=== PATIENT | male | born 1975 | race African-American/Black ===

== ENCOUNTER 2018-03-12 13:00 | Outpatient (RCR) | payer OTHER, SELFPAY ==
--- NOTE | 2018-02-10 17:09 | HP.PTEVAL_ITS ---
Patient's Visit Information BRIANNE ESTRADA is a 42 year old M referred to Physical Therapy by Tavia Martin MD with a diagnosis of LOW BACK PAIN,SCIATICA. Date of Evaluation: 02/10/18 Physical Therapist: Jose Frye PT, - Visit Plan Frequency: 2x /Week Duration: 4 Weeks Plan: intiate Mckenzies ,progression of forces as needed,progress to DLS/ POSTURE program ,and modlities for pain releive - Subjective Subjective: This 42 y/o male presenst physical therapy with low iman pain and radicular symptoms in right leg. Patient has had lumbar pain 2008 with symptoms wher intermittant . Patient symptosm more constant. Location symmtrical right greater than left anterior leg. Patient seen pain management plan to review MRI. Recommmended pain MEDS.Patient c/o weakness right leg ,trip on feet right side. C/O parathesia/tingling right foot. Bowel/bladder good.Coughing /sneezing -.Symptoms worse with sitting,driving,bending,lifting,standing.Patient has h/o epidural injections in past.Symptoms with rest. Pain affects sleeping. Pain affects ADL'S and housework taskS QOL. VOCATION: [employer]. SOCIAL: - Pain Bilateral Back Pain Intensity (Out of 10): 6 Pain Intensity Range: 10 Right Lower Extremity Pain Intensity (Out of 10): 6 Pain Intensity Range: 10 - Objective POSTURE: mild foward posture. GAIT: decrease stance time right leg with reciprocal pattern. PALAPTION: tender paraspinals /L-S. NEURO: c/o parathesia/ tingling right leg ,reflexes L3-4,L5-S1,2/3 ,MYTOME weakns L2-3. LUMBAR ROM: flexion min loss,extension min loss,side glides min ;loss. FLEXABLITY: hams mod tight. SYMMTRIES: align - Special Tests Lumbar Standing: Flexion - Mechanical Response: No effect Lumbar Standing: Flexion - Symptoms During Testing: Increases Lumbar Standing: Flexion - Symptoms After Testing: Worse Lumbar Standing: Extension - Mechanical Response: No effect Lumbar Standing: Extension - Symptoms During Testing: Decreases Lumbar Standing: Extension - Symptoms After Testing: Better Comments:: anterior thigh Lumbar Lying: Flexion - Mechanical Response: No effect Lumbar Lying: Flexion - Symptoms During Testing: Increases Lumbar Lying: Flexion - Symptoms After Testing: Worse Lumbar Lying: Extension - Mechanical Response: No effect Lumbar Lying: Extension - Symptoms During Testing: Centralizing Lumbar Lying: Extension - Symptoms After Testing: Better Comments:: leg - Goals Goal 1:: Independant with HEP Goal Time Frame: 4-6 Weeks Goal 2:: Independant with posture/body mechanics Goal Time Frame: 4-6 Weeks Goal 3:: Patient to improve lumbar ROM for function of recovery. Goal Time Frame: 4-6 Weeks Goal 4:: Patient to decrease lumbar and right leg pain by 50% o greater to improve function. Goal Time Frame: 4-6 Weeks Goal 5:: Patient to be d/c prophalxis Goal Time Frame: 4-6 Weeks - Rehabilitation Potential Physical Therapy Diagnosis: This patient appears to display with derrangement below knee with weaknes leg ,impairs gait and function ,responds better with extension thus benifit from skilled PT Rehabilitation Potential: Good - Anticipated Interventions Patient/Client Instruction: Educate patient on: Condition, Plan of Care For the Purpose of:: To decrease pain, To increase ROM, To improve muscle performance and motor function, To increase tolerance to activity/condition/ position, To improve ability of physical actions for home/community/work/leisure , To improve health of tissue, To reduce risk of recurrence, To improve ability to perform tasks related to life management Therapeutic Exercise to Include: Strength training, Postural training, Dynamic Lumbar Stabilization, [place] Exercises For the Purpose of:: To decrease pain, To increase ROM, To improve muscle performance and motor function, To increase tolerance to activity/condition/ position, To improve performance and independence with ADL's, To improve ability of physical actions for home/community/work/leisure, To improve health of tissue, To decrease soft tissue restriction, To increase flexibility/ROM, To improve ability to perform tasks related to life management TENS: Yes Cryotherapy (ice pack, ice massage): Yes Thermo therapy (hot pack): Yes Ultrasound (thermal/non thermal): Yes For the Purpose of:: To decrease pain, To decrease swelling/inflammation, To improve nutrient delivery to tissue, To increase oxygenation perfusion, To improve health of tissue, To decrease soft tissue restriction Thank you for the opportunity to evaluate your patient. For Medicare and Medicare HMO plans, please review the plan of care and approve it. It will need to be FAXED BACK to us at [phone] for Medicare purposes. Please let me know if there are questions or concerns regarding this plan of care. Physician Signature: Date:
--- NOTE | 2018-06-21 18:57 | HP.PTDCSUM ---
HP - PT D/C Summary It has been my pleasure to treat BRIANNE ESTRADA under orders from Tavia Martin MD, for the diagnosis of LOW BACK PAIN,SCIATICA for a total of 7 visit(s). Discharge Date: 03/12/18 Please see the following information for a summary of their discharge status. 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 - Pain Bilateral Back Pain Intensity (Out of 10): 0 Right Lower Extremity Pain Intensity (Out of 10): 0 - Overall Improvement % Improvement: 60 - Objective Objective/Function: POSTURE: WNL. GAIT: normal archana. NEURO: intact. PALPATION: unremarkable. MMT: LE. -SLR. LUMBAR ROM: flexion /extension WNL - Goals Goal 1:: Independant with HEP Goal Progress: Goal Met Goal 2:: Independant with posture/body mechanics Goal Progress: Goal Met Goal 3:: Patient to improve lumbar ROM for function of recovery. Goal Progress: Goal Met Goal 4:: Patient to decrease lumbar and right leg pain by 50% o greater to improve function. Goal Progress: Goal Met Goal 5:: Patient to be d/c prophalxis Goal Progress: Goal Met - Plan Plan: D/C - D/C Information Discharge Comments: RTD If there are questions or concerns regarding this patient's physical therapy, please feel free to call me at [phone]. Thank you for the referral of this patient. Sincerely, Jose Frye, PT,
== END 2018-03-12 19:00 | disposition home or self-care (01) ==
LOC: PT 13:00
PROVIDERS: Family Provider Family Medicine; PCP Internal Medicine; Visit Provider Anesthesiology
DX: M54.41 Lumbago with sciatica, right side (principal)
CPT/HCPCS: 97014; 97110; 97162; 97530; G0283

== ENCOUNTER → 2018-03-12 13:34 | Outpatient (CLI) | payer OTHER, SELFPAY | LOC: RAD 13:36 | PROVIDERS: Family Provider Internal Medicine; PCP Internal Medicine; Visit Provider Anesthesiology Pain Medicine | DX: M54.9 Dorsalgia, unspecified (principal); M79.673 Pain in unspecified foot | CPT/HCPCS: 72100; 73630; 73660 ==

== ENCOUNTER → 2019-03-31 10:21 | Outpatient (CLI) | payer OTHER, SELFPAY ==
[2019-03-31 09:58] VITALS: BMI 26.9
[2019-03-31 12:55] LABS: Absolute Lymphocyte Count 0.79 X10^3/uL (0.83-4.51); Absolute Neutrophil Count 4.7 X10^3/uL (2.0-7.7); Basophil# 0.04 X10^3/uL; Basophil% 0.6 % (0-1); Eosinophil# 0.22 X10^3/uL; Eosinophils% 3.5 % (0-5); Hematocrit 41.6 % (40-54); Hemoglobin 14.1 g/dL (13.0-16.5); Lymphocyte # 0.79 X10^3/ul (4.0); Lymphocyte % 12.6 % (19-41); Mean Corp Hgb Conc 33.9 g/dL (32-36); Mean Corpuscular Hgb 35.9 pg (27.0-32.0); Mean Corpuscular Volume 105.9 fL (80-94); Mean Platelet Vol. 9.2 fl (6.2-12.0); Monocyte# 0.43 X10^3/uL; Monocyte% 6.9 % (0-10); NRBC Flagged by Analyzer 0 % (0-5); Neutrophil # 4.74 X10^3/uL (2.7-7.7); Neutrophil % 75.6 % (47-70); Platelet Count 205 K/mm3 (150-450); RBC Distribution Width CV 11.3 % (11.6-14.6); RBC Distribution Width SD 44.1 fl (35.1-43.9); Red Blood Count 3.93 M/mm3 (4.6-6.2); White Blood Count 6.3 K/mm3 (4.4-11.0)
[2019-03-31 13:03] LABS: ALB/GLOB Ratio 0.9 RATIO (0.9-2.4); AST(SGOT) 30 U/L (15-37); Alanine Aminotransfer ALT/SGPT 31 U/L (16-61); Albumin, Serum 3.2 g/dL (3.2-5.0); Alkaline Phosphatase 42 U/L (45-117); Anion Gap 2 (5-15); BUN 18 mg/dL (7-18); BUN/Creat Ratio 15.3 RATIO (10-20); Calcium,Total 8.3 mg/dL (8.5-10.1); Chloride 112 mmol/L (98-107); Cholesterol 214 mg/dL (200); Creatinine, Serum 1.18 mg/dL (0.70-1.30); EST Glomerular Filtration Rate 71 mL/min (>60); Est Glom Filt Rate - Afr Amer 86 mL/min (>60); Globulin 3.4 g/dL (2.2-4.2); Glucose 84 mg/dL (74-106); High Density Lipoprotein 55 mg/dL; Potassium 3.8 mmol/L (3.5-5.1); Protein, Total 6.6 g/dL (6.4-8.2); Sodium Level 142 mmol/L (136-145); Triglycerides 111 mg/dL; Very Low Density Lipoprotein 22 mg/dL (5-40)
[2019-03-31 15:06] LABS: Thyroid Stim Hormone (TSH) 2.96 uIU/mL (0.358-3.74); Uric Acid 7.2 mg/dL (3.5-7.2)
== END ==
PROVIDERS: Family Provider Internal Medicine; PCP Internal Medicine; Visit Provider Nurse Practitioner Family
DX: I10 Essential (primary) hypertension (principal); M10.9 Gout, unspecified
CPT/HCPCS: 36415; 80053; 80061; 84443; 84550; 85025

== ENCOUNTER → 2020-05-21 10:35 | Outpatient (CLI) | payer OTHER, SELFPAY ==
[2019-09-22 10:35] VITALS: BMI 26.9
== END ==
PROVIDERS: PCP Internal Medicine; Referring Provider Internal Medicine; Visit Provider Internal Medicine
DX: J06.9 Acute upper respiratory infection, unspecified (principal); Z20.828 Contact with and (suspected) exposure to other viral communicable diseases
CPT/HCPCS: 87632; 87635; C9803; U0003

== ENCOUNTER → 2020-10-19 13:27 | Outpatient (CLI) | payer OTHER, SELFPAY ==
[2020-10-19 12:59] VITALS: BMI 25.3
[2020-10-19 15:15] LABS: Absolute Lymphocyte Count 1.71 X10^3/uL (0.83-4.51); Absolute Neutrophil Count 6.4 X10^3/uL (2.0-7.7); Basophil# 0.05 X10^3/uL; Basophil% 0.5 % (0-1); Eosinophil# 0.25 X10^3/uL; Eosinophils% 2.7 % (0-5); Hematocrit 48.3 % (40-54); Hemoglobin 16.6 g/dL (13.0-16.5); Lymphocyte # 1.71 X10^3/ul (4.0); Lymphocyte % 18.5 % (19-41); Mean Corp Hgb Conc 34.4 g/dL (32-36); Mean Corpuscular Hgb 35.5 pg (27.0-32.0); Mean Corpuscular Volume 103.4 fL (80-94); Mean Platelet Vol. 9.3 fl (6.2-12.0); Monocyte# 0.78 X10^3/uL; Monocyte% 8.5 % (0-10); NRBC Flagged by Analyzer 0 % (0-5); Neutrophil # 6.35 X10^3/uL (2.7-7.7); Neutrophil % 68.8 % (47-70); Platelet Count 261 K/mm3 (150-450); RBC Distribution Width CV 11.2 % (11.6-14.6); Red Blood Count 4.67 M/mm3 (4.6-6.2); White Blood Count 9.2 K/mm3 (4.4-11.0)
[2020-10-19 16:20] LABS: ALB/GLOB Ratio 1.1 RATIO (0.9-2.4); AST(SGOT) 64 U/L (15-37); Alanine Aminotransfer ALT/SGPT 60 U/L (16-61); Alkaline Phosphatase 81 U/L (45-117); Anion Gap 4 (5-15); BUN 17 mg/dL (7-18); BUN/Creat Ratio 13.6 RATIO (10-20); Chloride 106 mmol/L (98-107); Cholesterol 272 mg/dL (200); Creatinine, Serum 1.25 mg/dL (0.70-1.30); EST Glomerular Filtration Rate 66 mL/min (>60); Est Glom Filt Rate - Afr Amer 80 mL/min (>60); Globulin 3.8 g/dL (2.2-4.2); Glucose 85 mg/dL (74-106); High Density Lipoprotein 51 mg/dL; Potassium 3.9 mmol/L (3.5-5.1); Protein, Total 7.8 g/dL (6.4-8.2); Sodium Level 139 mmol/L (136-145); Thyroid Stim Hormone (TSH) 1.12 uIU/mL (0.358-3.74); Triglycerides 320 mg/dL; Very Low Density Lipoprotein 64 mg/dL (5-40)
== END ==
PROVIDERS: PCP Internal Medicine; Referring Provider Nurse Practitioner Family; Visit Provider Nurse Practitioner Family
DX: I10 Essential (primary) hypertension (principal)
CPT/HCPCS: 36415; 80053; 80061; 84443; 85025

== ENCOUNTER → 2020-11-01 13:08 | Outpatient (CLI) | payer OTHER, SELFPAY ==
[2020-10-19 12:59] VITALS: BMI 25.3
--- NOTE | 2020-11-01 13:15 | RAD_ITS ---
STUDY: X-RAY - LUMBAR SPINE REASON FOR EXAM: Male, 45 years old. Chronic low back pain. TECHNIQUE: 3 view(s) of the lumbar spine were obtained. COMPARISON: 03/12/2018 FINDINGS: Normal lumbar lordosis. There is no substantial scoliosis. There is a normal alignment of the vertebrae. Normal vertebral bodies and endplates. Stable diffuse facet sclerosis. Intervertebral disc space narrowing most marked at L3-4 and L4-5 relatively unchanged from prior study. Stable aortic calcification. Phleboliths unchanged. RAD/Lumbar Spine 2 or 3 Views IMPRESSION: Stable lumbar spondylosis most marked at L3-4 and L4-5. No acute finding. Electronically Signed: Suleiman Chauhan MD at 14:37 EDT , Service support ,
== END ==
PROVIDERS: PCP Internal Medicine; Visit Provider Nurse Practitioner Family
DX: M54.5 Low back pain (principal); G89.29 Other chronic pain
CPT/HCPCS: 72100

== ENCOUNTER 2020-11-20 09:00 | Outpatient (RCR) | payer OTHER, SELFPAY ==
[2020-10-19 12:59] VITALS: BMI 25.3
--- NOTE | 2020-11-01 13:11 | HP.PTEVAL_ITS ---
Patient's Visit Information BRIANNE ESTRADA is a 45 year old M referred to Physical Therapy by MARIANO Castro with a diagnosis of LOW BACK PAIN. Date of Evaluation: 11/01/20 Physical Therapist: Jose Frye, PT, Cert MDT, OCS - Visit Plan Frequency: 2x /Week Duration: 4 Weeks Plan: PT INTERVENTIONS LIZ EX'S,DLS ,LE FLEXABLITY,MANUAL THERAPY AND MODALITIES - Subjective This 45 y/o male presents to physical therapy with LBP. Patient LBP 2007 picking up weight at soccer and felt pain. Patient seen pain management epidural injection which helped for about 3 years.Patient has tried PT . MRI buldling disc/bulding disc . Pain most recently noticed increase back pain and leg pain. Patient plans to get x-rays and pain MEDS. Location symmtrical lumbar and right leg pain with weakness. C/O tingling right leg. Coughing/sneezing -.[place] el/bladder -.No abdnormal night pain. Aggraveting bending,lifting,sitting standing. Alleviating walking. Patient symptoms affects QOL and function;. VOCATION: [employer]. SOCIAL: - Pain Bilateral Back Pain Intensity (Out of 10): 5 Pain Intensity Range: 10 - Objective POSTURE: mild foward posture. GAIT: reciprocal pattern. PALAPTION: unremarkable. SYMMTRIES: align. FLEXABLITY: hams mod. MMT: quads/hams 4- /5,hip flexion 4-/5,ankle 4/5 left ,right 5/5. LUMBAR ROM: lumbar flexion min loss,extension mod loss ,side glides min loss - Special Tests L/S Slump test left side: Negative L/S Slump test right side: Positive L/S Left Straight Leg Raise: Negative L/S Right Straight Leg Raise: Positive Lumbar Standing: Flexion - Mechanical Response: No effect Lumbar Standing: Flexion - Symptoms During Testing: Increases Lumbar Standing: Flexion - Symptoms After Testing: No worse Lumbar Standing: Extension - Mechanical Response: No effect Lumbar Standing: Extension - Symptoms During Testing: Increases Lumbar Standing: Extension - Symptoms After Testing: No worse Comments:: LPB Lumbar Standing: Right Side Glides - Mechanical Response: No effect Lumbar Standing: Right Side Brandon - Symptoms During Testing: No effect Lumbar Standing: Right Side Brandon - Symptoms After Testing: No effect Lumbar Standing: Left Side Brandon - Mechanical Response: No effect Lumbar Standing: Left Side Brandon - Symptoms During Testing: No effect Lumbar Standing: Left Side Brandon - Symptoms After Testing: No effect - Goals Goal 1:: I with HEP Goal Time Frame: 4-6 Weeks Goal 2:: Patient to be improve posture /body mechanics . Goal Time Frame: 4-6 Weeks Goal 3:: Patient to improve lumbar ROM for function of recovery Goal Time Frame: 4-6 Weeks Goal 4:: Patient decrease lumbar pain by 50% or > to improve function. Goal Time Frame: 4-6 Weeks Goal 5:: Patient improve back owestry score by 5 points or> to improve QOL. Goal Time Frame: 4-6 Weeks - Rehabilitation Potential Physical Therapy Diagnosis: This patient has lumbar pain with possible derrangement with h/o disc issues with pain ,decreasing lumbar ROM,weakness right leg impairs ADLS and gait thus will benifit from skilled PT Rehabilitation Potential: Good - Anticipated Interventions Patient/Client Instruction: Educate patient on: Condition, Plan of Care For the Purpose of:: To decrease pain, To increase ROM, To improve muscle performance and motor function, To improve ability to perform ADL's, To increase tolerance to activity/condition/position, To decrease level of supervision to perform tasks, To improve health of tissue, To decrease soft tissue restriction, To increase flexibility/ROM, To improve health and function, To improve ability to perform tasks related to life management Therapeutic Exercise to Include: Strength training, Body mechanics, Postural training, Flexibilty training, Active ROM, Scapular Strength/Stabilization For the Purpose of:: To decrease pain, To increase ROM, To improve muscle performance and motor function, To improve ability to perform ADL's, To increase tolerance to activity/condition/position, To improve ability of physical actions for home/community/work/leisure, To improve health of tissue, To decrease soft tissue restriction, To increase flexibility/ROM, To improve ability to perform tasks related to life management TENS: Yes IF ES: Yes Cryotherapy (ice pack, ice massage): Yes Thermo therapy (hot pack): Yes Ultrasound (thermal/non thermal): Yes For the Purpose of:: To decrease pain, To increase ROM, To improve health of tissue, To decrease soft tissue restriction Thank you for the opportunity to evaluate your patient. For Medicare and Medicare HMO plans, please review the plan of care and approve it. It will need to be FAXED BACK to us at [phone] for Medicare purposes. For Medicare only, by signing this I certify the plan of care. Please let me know if there are questions or concerns regarding this plan of care. Physician Signature: Date:
--- NOTE | 2021-04-15 11:15 | HP.PT.NRP ---
BRIANNE ESTRADA was seen in my office for initial evaluation on 11/01/20. The following Plan of Care was established for this patient: Initial Frequency: 2x /Week Initial Duration: 4 Weeks Patient/Client Instruction: Educate patient on: Condition, Plan of Care For the Purpose of:: To decrease pain, To increase ROM, To improve muscle performance and motor function, To improve ability to perform ADL's, To increase tolerance to activity/condition/position, To decrease level of supervision to perform tasks, To improve health of tissue, To decrease soft tissue restriction, To increase flexibility/ROM, To improve health and function, To improve ability to perform tasks related to life management Therapeutic Exercise to Include: Strength training, Body mechanics, Postural training, Flexibilty training, Active ROM, Scapular Strength/Stabilization For the Purpose of:: To decrease pain, To increase ROM, To improve muscle performance and motor function, To improve ability to perform ADL's, To increase tolerance to activity/condition/position, To improve ability of physical actions for home/community/work/leisure, To improve health of tissue, To decrease soft tissue restriction, To increase flexibility/ROM, To improve ability to perform tasks related to life management TENS: Yes IF ES: Yes Cryotherapy (ice pack, ice massage): Yes Thermo therapy (hot pack): Yes Ultrasound (thermal/non thermal): Yes For the Purpose of:: To decrease pain, To increase ROM, To improve health of tissue, To decrease soft tissue restriction This patient was last seen in our office . Pertinent comments regarding their Physical therapy will appear below: Patient seen for back pain focusing on postural ex's and DLS thus d/c At this point I will be discontinuing this patient from physical therapy. I would be happy to see this patient again in the future if found appropriate by the physician. Thank you! Jose Frye, PT, Cert MDT, OCS Balance/Gait/Functional tests - Balance/Special Test Scores Oswestry Low Back Score: 5
== END 2020-11-20 19:00 | disposition home or self-care (01) ==
LOC: PT 09:00
PROVIDERS: PCP Internal Medicine; Referring Provider Nurse Practitioner Family; Visit Provider Nurse Practitioner Family
DX: M54.5 Low back pain (principal)
CPT/HCPCS: 97110; 97162

== ENCOUNTER → 2022-11-27 | Outpatient (CLI) | payer OTHER, SELFPAY ==
[2022-11-27 17:07] LABS: Absolute Neutrophil Count 7.7 X10^3/uL (2.0-7.7); Basophil# 0.05 X10^3/uL; Basophil% 0.5 % (0-1); Eosinophil# 0.27 X10^3/uL; Eosinophils% 2.8 % (0-5); Hematocrit 43.4 % (40-54); Hemoglobin 14.6 g/dL (13.0-16.5); Lymphocyte % 9.5 % (19-41); Mean Corp Hgb Conc 33.6 g/dL (32-36); Mean Corpuscular Hgb 35.7 pg (27.0-32.0); Mean Corpuscular Volume 106.1 fL (80-94); Mean Platelet Vol. 9.3 fl (6.2-12.0); Monocyte# 0.58 X10^3/uL; Monocyte% 6.1 % (0-10); NRBC Flagged by Analyzer 0 % (0-5); Neutrophil # 7.66 X10^3/uL (2.7-7.7); Neutrophil % 80.7 % (47-70); Platelet Count 283 K/mm3 (150-450); RBC Distribution Width CV 11.2 % (11.6-14.6); RBC Distribution Width SD 43.9 fl (35.1-43.9); Red Blood Count 4.09 M/mm3 (4.6-6.2); White Blood Count 9.5 K/mm3 (4.4-11.0)
[2022-11-27 17:35] LABS: ALB/GLOB Ratio 0.9 RATIO (0.9-2.4); AST(SGOT) 31 U/L (15-37); Alanine Aminotransfer ALT/SGPT 35 U/L (16-61); Albumin, Serum 3.5 g/dL (3.2-5.0); Alkaline Phosphatase 69 U/L (45-117); Anion Gap 5 (5-15); BUN 14 mg/dL (7-18); BUN/Creat Ratio 13.5 RATIO (10-20); Calcium,Total 8.9 mg/dL (8.5-10.1); Chloride 110 mmol/L (98-107); Cholesterol 220 mg/dL (200); Creatinine, Serum 1.04 mg/dL (0.70-1.30); EST Glomerular Filtration Rate 81 mL/min (>60); Est Glom Filt Rate - Afr Amer 98 mL/min (>60); Globulin 3.9 g/dL (2.2-4.2); Glucose 100 mg/dL (74-106); High Density Lipoprotein 61 mg/dL; Protein, Total 7.4 g/dL (6.4-8.2); Sodium Level 141 mmol/L (136-145); Triglycerides 89 mg/dL; Very Low Density Lipoprotein 18 mg/dL (5-40)
== END | disposition home or self-care (01) ==
LOC: BIMLAB 15:20
PROVIDERS: PCP Internal Medicine; Referring Provider Nurse Practitioner Family; Visit Provider Nurse Practitioner Family
DX: I10 Essential (primary) hypertension (principal); M54.9 Dorsalgia, unspecified; G89.29 Other chronic pain; J30.2 Other seasonal allergic rhinitis
CPT/HCPCS: 36415; 80053; 80061; 84443; 85025

== ENCOUNTER 2023-01-14 09:09 | Emergency (ER) | payer OTHER, SELFPAY ==
[2023-01-14 09:10] VITALS: BP 131/88; PULSE 103; RESP 16; TEMP 36.6; O2SAT 99; BMI 23.7
--- NOTE | 2023-01-14 09:22 | VDLE_ITS ---
Reason For Study: Right leg swelling RIGHT LEFT GSV is normal. CFV is compressible, spontaneous, phasic, Acute deep vein thrombosis is noted in the competent, and demonstrates normal EIV, CFV, FV, PopV, T/P Trunk, GastrocV, augmentation. SoleusV, PTV and PeroV. It is dilated and NONCOMPRESSIBLE. Procedure This is a venous duplex using B-mode, color flow and spectral Doppler. Exam performed portable in ED. A preliminary report was called and/or faxed to [facility]. VL/Venous Duplex US, Unilateral Interpretation Summary Acute deep vein thrombosis is noted in the right external iliac vein, common fe moral vein, femoral vein, popliteal vein, tibioperoneal trunk vein, gastrocnemius vein, soleus vein , posterior tibial vein, peroneal vein. Ordering Physician: Toy Escalona Referring Physician: Daniel Rodriguez Performed By: Irma Natarajan RVT
--- NOTE | 2023-01-14 09:23 | ED.VIS.LOWEX ---
HPI History of Present Illness Chief Complaint: Lower Extremity Injury Informant: patient and spouse/S.O. Narrative Narrative: Patient presents with just a day or 2 of swelling, pain, redness right lower extremity. Spontaneous in onset. No recent surgery, hospitalization, long travel or other reason for mobilization. No history of DVT or PE. Has no chest pain or shortness of breath, no fevers or chills. He states it initially started with swelling in his ankle and his foot, and seemed to very quickly progress between last night and this morning. [facility] Medical History Acute exacerbation of chronic low back pain Alcohol abuse Back problem Difficulty balancing Frequent headaches High blood pressure HTN (hypertension) Seasonal allergies Home Medications prednisone 10 mg tablet See Rx Instructions PO QDAY #30 tabs 11/26/21 [Rx Last Taken Unknown] amlodipine 10 mg tablet 10 mg PO DAILY #10 tabs 11/15/22 [Rx Last Taken Unknown] nebivolol 10 mg tablet (Bystolic) 10 mg PO DAILY #10 tabs 11/15/22 [Rx Last Taken Unknown] baclofen 20 mg tablet 20 mg PO TID PRN muscle spasm #60 tabs 11/27/22 [Rx Last Taken Unknown] cetirizine 10 mg capsule (Zyrtec) 10 mg PO DAILY #90 caps 11/27/22 [Rx Last Taken Unknown] prednisone 10 mg tablet See Rx Instructions PO QDAY #30 tabs 11/27/22 [Rx Last Taken Unknown] apixaban 5 mg (74 tabs) tablets in a dose pack (Eliquis DVT-PE Treat 30D Start) 5 mg PO BID #74 tabs 01/14/23 [Rx Last Taken Unknown] Allergy/AdvReac Type Severity Reaction Status Date / Time No Known Allergies Allergy Verified 01/14/23 09:13 Family History Grandfather Kidney disease Liver disease Skin cancer CVA (cerebral vascular accident) Uncle COPD (chronic obstructive pulmonary disease) Mental disorder Social History Smoking Status: Current every day smoker tobacco type: cigarettes alcohol intake: current substance use type: does not use what type of physical activity do you participate in: none ROS ROS ED Constitutional Constitutional ED: Denies chills or fever(s) Cardiovascular Cardiovascular: Denies chest pain, lightheadedness, palpitations, racing heartbeat or syncope Respiratory/Chest Respiratory/Chest: Denies cough or dyspnea Musculoskeletal Musculoskeletal: Reports as per HPI and extremity pain; Denies neck pain Integumentary Denies abscess, Abrasions, rash or wounds Neurologic Neurologic: Denies paresthesias or weakness EXAM Physical Exam Const Vital Signs: 01/14/23 09:10 Temperature 98 F Temperature Source Temporal Pulse Rate 103 H Respiratory Rate 16 Blood Pressure 131/88 H Blood Pressure Mean 102 Pulse Ox 99 Oxygen Delivery Method Room Air Positive well nourished and well developed General Appearance ED: well developed and NAD HEENT Reports moist mucous membranes Eyes PERRL Eyes Narrative: EOMI Neck full ROM and supple Chest Wall inspection of chest normal Resp normal respiratory effort, no retractions and clear to auscultation bilaterally Cardio regular rate, regular rhythm and no murmurs Back/Spine normal ROM and normal to inspection Extremity Extremity Narrative: Erythematous swollen right lower extremity. Progresses proximal to the knee. Some difficulty bending the knee due to swelling, but mostly limited movement due to pain in the groin where he has some palpable lymphadenopathy. No palpable cords throughout the thigh/leg. Very swollen between the knee and ankle, no paresthesias negative Homans, compartments are soft, minimally tender throughout the skin, full range of motion of the ankle without difficulty, foot is less affected does not appear erythematous. The entire lower leg is erythematous, and it progresses up the medial aspect of the thigh. Neuro oriented x3, CN's II-XII intact bilaterally, no focal motor deficits and no sensory deficits noted Sensorium / Orientation: alert Psych mental status grossly normal and thought process normal Skin no wounds Rashes: no rashes MDM MDM MDM Narrative Medical decision making narrative: Given the groin pain and palpable lymphadenopathy my suspicion is that this is a quickly spreading infection, but DVT is in the differential as well. Given this I ordered basic labs, x-ray to evaluate for subcutaneous air, IV with pain medication and empiric antibiotics, in addition to a duplex ultrasound of the right lower extremity to evaluate for venous thromboembolic process. Although his white blood count is 12.7 slightly elevated, the ultrasound was done after the antibiotics were started and does show extensive DVT all the way up to the external iliac. I suspect now that that is what I was feeling in his groin that was tender instead of a lymph node. The exam was somewhat limited because the patient was guarding, understandably. I discussed these findings with Dr. Kincaid with vascular, he recommends anticoagulation in the standard manner, and close a patient follow-up for discussions about possible thrombectomy given the extent of clot. He does not have any signs or symptoms of a PE right now. I am given him an injection of Lovenox 1.5 mg/kg to cover him for 24 hours while he feels a prescription for Eliquis and starts that in the morning tomorrow. Lab Data Attestation: I reviewed the patient's lab results. Labs: Laboratory Results - last 24 hr 01/14/23 09:36 WBC 12.7 H RBC 3.93 L Hgb 14.3 Hct 39.8 L MCV 101.3 H MCH 36.4 H MCHC 35.9 RDW Std Deviation 43.2 RDW Coeff of Rudy 11.6 Plt Count 162 MPV 8.9 Immature Gran % (Auto) 0.600 Neut % (Auto) 86.8 H Lymph % (Auto) 4.9 L Sedgwick % (Auto) 5.5 Eos % (Auto) 1.7 Baso % (Auto) 0.5 Absolute Neuts (auto) 11.0 H Absolute Lymphs (auto) 0.62 L Nucleated RBC % 0 Sodium 140 Potassium 3.4 L Chloride 107 Carbon Dioxide 24.0 Anion Gap 9 BUN 11 Creatinine 0.94 Estim Creat Clear Calc 114.86 Est GFR (MDRD) Af Amer 110 Est GFR (MDRD) Non-Af 91 BUN/Creatinine Ratio 11.8 Glucose 112 H Calcium 8.8 Discharge Plan Triage Chief Complaint: Lower Extremity Injury ED Provider: Toy Escalona Dx/Rx/DC Orders Clinical Impression: Acute deep vein thrombosis (DVT) of right lower extremity Instructions: DVT Dc Prescriptions: New Eliquis DVT-PE Treat 30D Start 5 mg (74 tabs) tablets,dose pack 5 mg PO BID Qty: 74 0RF Rx Instructions: use as directed No Action prednisone 10 mg tablet See Rx Instructions PO QDAY Qty: 30 0RF Rx Instructions: 4 tabs for 3 days, then 3 tabs for 3 days, then 2 tabs for 3 days, then 1 tab for 3 days PO QDAY; administer with food or milk baclofen 20 mg tablet 20 mg PO TID PRN (Reason: muscle spasm) Qty: 60 1RF prednisone 10 mg tablet See Rx Instructions PO QDAY Qty: 30 0RF Rx Instructions: 4 tabs for 3 days, then 3 tabs for 3 days, then 2 tabs for 3 days, then 1 tab for 3 days PO QDAY; administer with food or milk Zyrtec 10 mg capsule 10 mg PO DAILY Qty: 90 3RF Bystolic 10 mg tablet 10 mg PO DAILY Qty: 10 0RF amlodipine 10 mg tablet 10 mg PO DAILY Qty: 10 0RF Primary Care Provider: Daniel Rodriguez Referrals: Daniel Rodriguez MD [Primary Care Provider] - Fredo Kincaid MD [Med Staff - Active Staff] - As soon as possible (his office to call you and set up follow-up) Disposition Disposition: Home, Self Care
[2023-01-14] MEDS: Morphine 4 MG/ML Syringe IV (09:34)
[2023-01-14 09:43] LABS: Absolute Lymphocyte Count 0.62 X10^3/uL (0.83-4.51); Basophil# 0.06 X10^3/uL; Basophil% 0.5 % (0-1); Eosinophil# 0.22 X10^3/uL; Eosinophils% 1.7 % (0-5); Hematocrit 39.8 % (40-54); Hemoglobin 14.3 g/dL (13.0-16.5); Lymphocyte # 0.62 X10^3/ul (0.83-4.51); Lymphocyte % 4.9 % (19-41); Mean Corp Hgb Conc 35.9 g/dL (32-36); Mean Corpuscular Hgb 36.4 pg (27.0-32.0); Mean Corpuscular Volume 101.3 fL (80-94); Mean Platelet Vol. 8.9 fl (6.2-12.0); Monocyte% 5.5 % (0-10); NRBC Flagged by Analyzer 0 % (0-5); Neutrophil # 10.99 X10^3/uL (2.7-7.7); Neutrophil % 86.8 % (47-70); Platelet Count 162 K/mm3 (150-450); RBC Distribution Width CV 11.6 % (11.6-14.6); RBC Distribution Width SD 43.2 fl (35.1-43.9); Red Blood Count 3.93 M/mm3 (4.6-6.2); White Blood Count 12.7 K/mm3 (4.4-11.0)
[2023-01-14] MEDS: Ondansetron 4 MG/2 ML Vial IV (09:46)
[2023-01-14 09:55] LABS: Anion Gap 9 (5-15); BUN 11 mg/dL (7-18); BUN/Creat Ratio 11.8 RATIO (10-20); Calcium,Total 8.8 mg/dL (8.5-10.1); Chloride 107 mmol/L (98-107); Creatinine, Serum 0.94 mg/dL (0.70-1.30); EST Glomerular Filtration Rate 91 mL/min (>60); Est Glom Filt Rate - Afr Amer 110 mL/min (>60); Estimated Creatinine Clearance 114.86 ml/min; Glucose 112 mg/dL (74-106); Potassium 3.4 mmol/L (3.5-5.1); Sodium Level 140 mmol/L (136-145)
[2023-01-14 11:00] VITALS: BP 124/76; PULSE 89; RESP 16; TEMP 36.3; O2SAT 100
--- NOTE | 2023-01-14 11:00 | RAD_ITS ---
STUDY: X-RAY - RIGHT TIBIA AND FIBULA REASON FOR EXAM: Male, 47 years old. Infection/pain/swelling TECHNIQUE: 4 view(s) of the tibia and fibula were obtained. COMPARISON: None. FINDINGS: Normal visualized tibia. Normal visualized fibula. Soft tissue swelling. Atherosclerotic vascular calcification of the tibial peroneal trunk. RAD/Tibia & Fibula 2 Views IMPRESSION: Soft tissue swelling. No bony abnormality is seen. Electronically Signed: Yrn Johnson MD at 11:38 EDT ,
[2023-01-14] MEDS: Enoxaparin 150 MG/ML Syringe 130 MG SC (11:05)
== END 2023-01-14 11:11 | disposition home or self-care (01) ==
PROVIDERS: Emergency Provider Emergency Medicine; PCP Internal Medicine; Visit Provider Emergency Medicine
DX: I82.421 Acute embolism and thrombosis of right iliac vein (principal); I10 Essential (primary) hypertension; F17.210 Nicotine dependence, cigarettes, uncomplicated; Z79.01 Long term (current) use of anticoagulants
CPT/HCPCS: 73590; 80048; 85025; 93971; 96365; 96372; 96375; 99283; J0295; J2405

== ENCOUNTER → 2023-06-19 | Outpatient (CLI) | payer OTHER, SELFPAY ==
[2023-06-19 17:04] LABS: Anion Gap 3 (5-15); BUN 15 mg/dL (7-18); BUN/Creat Ratio 14.6 RATIO (10-20); Chloride 108 mmol/L (98-107); Creatinine, Serum 1.03 mg/dL (0.70-1.30); EST Glomerular Filtration Rate 82 mL/min (>60); Est Glom Filt Rate - Afr Amer 99 mL/min (>60); Glucose 85 mg/dL (74-106); Potassium 4.3 mmol/L (3.5-5.1); Sodium Level 141 mmol/L (136-145); Uric Acid 8.3 mg/dL (3.5-7.2)
== END | disposition home or self-care (01) ==
LOC: BIMLAB 15:32
PROVIDERS: PCP Internal Medicine; Referring Provider Internal Medicine; Visit Provider Internal Medicine
DX: M10.9 Gout, unspecified (principal); I10 Essential (primary) hypertension
CPT/HCPCS: 36415; 80048; 84550

== ENCOUNTER → 2023-12-09 | Outpatient (CLI) | payer OTHER, SELFPAY ==
--- NOTE | 2023-12-09 15:31 | MRI_ITS ---
STUDY: MRI LUMBAR SPINE WITHOUT CONTRAST REASON FOR EXAM: Male, 48 years old. back pain with rediculopathy TECHNIQUE: Standardized fat and water weighted pulse sequences were obtained in the sagittal and axial planes. COMPARISON: Lumbar spine x-rays November 01, 2020 FINDINGS: T12-L1: Normal endplates. Normal disc height, hydration and morphology. Normal bilateral facet joints. Normal central canal and bilateral lateral recesses. Normal bilateral intervertebral neural foramina. Normal lumbar lordosis. There is no substantial scoliosis. Normal conus medullaris that terminates at T12-L1 L1-2: Normal endplates. Normal disc height hydration and morphology. Normal bilateral facet joints. Normal central canal and bilateral lateral recesses. Normal bilateral intervertebral neural foramina L2-3:: Normal endplates. Narrowed disc space with desiccation of the disc and mild annular bulge.. Mild facet arthropathy and thickening of ligamenta flava. Mild to moderate narrowing of the central canal exaggerated by prominent posterior epidural fat. Normal bilateral lateral recesses. Moderate bilateral neural foraminal stenosis exaggerated by shortened pedicles L3-4:: Narrowed disc space and degenerative endplate changes with desiccation of the disc and mild annular bulge. Facet arthropathy and mild thickening of ligamenta flava. Mild to moderate narrowing of the central canal exaggerated by prominent posterior epidural fat. Normal bilateral lateral recesses. Moderate bilateral neural foraminal stenosis exaggerated by shortened pedicles. L4-5: Narrowed disc space with degenerative endplate changes. Normal disc hydration and mild bulging of the annulus with small right posterolateral/foraminal disc protrusion with superior migration of disc fragment Mild facet arthropathy and thickening of ligamenta flava. Mild to moderate central canal stenosis exaggerated by posterior epidural fat. Mild right lateral recess stenosis. Moderate left neural foraminal stenosis and more severe narrowing on the right exaggerated by shortened pedicles L5-S1: Normal endplates. Normal disc height, hydration and minimal annular bulge and mild facet arthropathy.. Normal central canal and bilateral lateral recesses. Normal bilateral intervertebral neural foramina. There is marked narrowing of the thecal sac at L5-S1 and at the sacral level due to extensive lipomatous deposition Normal visualized sacral ala. Normal visualized paraspinous soft tissue structures. MRI/Spine Lumbar (Routine) IMPRESSION: No evidence for acute fracture or other significant bony pathology. multilevel spinal stenosis secondary to disc disease and bony hypertrophy exaggerated by a foreshortened pedicles as well as posterior epidural fat deposition. There is also severe attenuation of the thecal sac at L5-S1 and distally due to lipomatous infiltration Other findings as above Electronically Signed: Raymond Sin MD at 19:07 EDT ,
== END | disposition home or self-care (01) ==
LOC: MRI 15:21
PROVIDERS: PCP Internal Medicine; Referring Provider Physician Assistant; Visit Provider Physician Assistant
DX: M54.40 Lumbago with sciatica, unspecified side (principal)
CPT/HCPCS: 72148

== ENCOUNTER 2025-02-24 10:26 | Emergency (ER) | payer OTHER, SELFPAY ==
[2025-02-24 10:26] VITALS: BP 139/103
[2025-02-24 10:27] VITALS: BP 152/109; PULSE 98; RESP 16; TEMP 36.6; O2SAT 98
--- NOTE | 2025-02-24 10:48 | US_ITS ---
PROCEDURE: TESTICULAR WITH ARTERIAL FLOW 02/24/2025 REASON FOR EXAM: R TESTICULAR PAIN TECHNIQUE: TESTICULAR WITH ARTERIAL FLOW COMPARISON: None FINDINGS: RIGHT testicle: 4.8 cm x 3.1 cm x 2.2 cm Homogeneous echotexture. No intratesticular mass. Right epididymis: Unremarkable. It measures 0.8 cm x 1.3 cm x 0.6 cm. LEFT testicle: 4.2 cm x 3.1 cm x 2.6 cm Homogeneous echotexture. No intratesticular mass. Left epididymis: Unremarkable. It measures 0.8 cm 1 cm 0.8 cm. Other findings: No hydrocele or large varicocele. DOPPLER FINDINGS: Symmetric color doppler blood flow signal at both testes. Normal arterial inflow and venous outflow waveforms at both testes. US/Testicular with Arterial Flow IMPRESSION: NORMAL SCROTAL ULTRASOUND WITH DOPPLER. Reading Location: [id number]
[2025-02-24 10:55] VITALS: BMI 20.5
[2025-02-24] MEDS: HYDROcodone Bitartrate/Apap 5/325 Tablet PO (10:55)
[2025-02-24 11:08] LABS: Hematocrit 31.1 % (40-54); Hemoglobin 10.5 g/dL (13.0-16.5); Immature Granulocytes Count 0.020 X10^3/uL (0.0-0.0); Mean Corp Hgb Conc 33.8 g/dL (32-36); Mean Corpuscular Volume 102.0 fL (80-94); Mean Platelet Vol. 8.7 fl (6.2-12.0); NRBC Flagged by Analyzer 0 % (0-5); Platelet Count 206 K/mm3 (150-450); RBC Distribution Width CV 14.6 % (11.6-14.6); RBC Distribution Width SD 54.4 fl (35.1-43.9); Red Blood Count 3.05 M/mm3 (4.6-6.2); White Blood Count 6.4 K/mm3 (4.4-11.0)
[2025-02-24 12:11] LABS: Anion Gap 17 (5-15); BUN 10 mg/dL (4-19); BUN/Creat Ratio 11.1 RATIO (10-20); CPK Total, Creatine Kinase 224 U/L (24-195); Calcium,Total 8.3 mg/dL (7.6-11.0); Carbon Dioxide 20.7 mmol/L (21.0-32.0); Chloride 102 mmol/L (98-108); Estimated Creatinine Clearance 103.47 ml/min (50-250); Glucose 92 mg/dL (70-99); Potassium 3.7 mmol/L (3.3-5.1)
--- NOTE | 2025-02-24 12:17 | EX.ED.DYSGE1 ---
HPI History of Present Illness Chief Complaint: Lower Extremity Injury Informant: patient and family Narrative Narrative: 49-year-old male essentially comes in for a few days of pain in his right scrotum. He denies any urinary issues or new back pain, but he presents saying that his chronic right lower extremity pain is persistent and now is in my [scrotum]. He states he was diagnosed with a DVT months ago and placed on Eliquis, he has been on that, the edema in his right lower extremity has eventually resolved and is gone now, but the pain that he has been having for longer since before he was diagnosed which goes all the way up to his proximal thigh is persistent and unchanged and he states is a 10 out of 10 or more. He denies any pins and needle sensation. He denies any numbness distally. No bowel or bladder dysfunction. He states sometimes the leg gives out on him but that is intermittent but it feels weak. He is mostly concerned about the pain. PFSH PFSH Medical History DVT (deep venous thrombosis) Gout HTN (hypertension) Acute exacerbation of chronic low back pain Difficulty balancing High blood pressure Frequent headaches Back problem Seasonal allergies Alcohol abuse Home Medications ?Medication ?Instructions ?Recorded ?Last Taken ?Type desoximetasone 0.05 % topical 1 applic topical BID #100 grams 08/07/23 Unknown Rx cream (Topicort) triamcinolone acetonide 0.1 % 1 applic topical DAILY 08/07/23 Unknown History topical cream allopurinol 100 mg tablet 100 mg PO DAILY #90 tabs 04/15/24 Unknown Rx amlodipine 10 mg tablet 10 mg PO DAILY #90 tabs 04/15/24 Unknown Rx cetirizine 10 mg capsule (Zyrtec) 10 mg PO DAILY #90 caps 04/15/24 Unknown Rx cyclobenzaprine 10 mg tablet 10 mg PO TID PRN muscle spasm #30 04/15/24 Unknown Rx tabs nebivolol 10 mg tablet See Rx Instructions .Route 04/15/24 Unknown Rx .COMPLEX #180 tabs rivaroxaban 20 mg tablet (Xarelto) 20 mg PO DAILY #90 tabs 04/15/24 Unknown Rx escitalopram oxalate 10 mg tablet 10 mg PO QDAY #30 tabs 07/27/24 Unknown Rx (Lexapro) doxycycline monohydrate 100 mg 100 mg PO BID #14 CAPSULES 02/24/25 Unknown Rx capsule Allergy/AdvReac Type Severity Reaction Status Date / Time No Known Allergies Allergy Verified 04/15/24 09:54 Family History Grandfather Kidney disease Liver disease Skin cancer CVA (cerebral vascular accident) Uncle COPD (chronic obstructive pulmonary disease) Mental disorder Social History Smoking Status: Current every day smoker tobacco type: cigarettes alcohol intake: current substance use type: does not use what type of physical activity do you participate in: none ROS ROS ED Constitutional Constitutional ED: Denies chills or fever(s) Cardiovascular Cardiovascular: Denies chest pain Respiratory/Chest Respiratory/Chest: Denies dyspnea Gastrointestinal Gastrointestinal: Denies abdominal pain, diarrhea, nausea or vomiting Genitourinary Genitourinary ED: Reports scrotal pain; Denies dysuria, hematuria, scrotal swelling or urinary frequency Musculoskeletal Musculoskeletal: Reports extremity pain; Denies back pain or neck pain Integumentary Denies Abrasions, rash or wounds Neurologic Neurologic: Denies paresthesias or weakness EXAM Physical Exam Const Vital Signs: 02/24/25 10:26 02/24/25 10:27 Temperature 98 F Temperature Source Temporal Pulse Rate 98 Respiratory Rate 16 Blood Pressure 139/103 H 152/109 H Blood Pressure Mean 115 123 Pulse Ox 98 Oxygen Delivery Method Room Air Positive well nourished and well developed General Appearance ED: well developed and NAD Neck full ROM and supple Resp normal respiratory effort and clear to auscultation bilaterally Cardio regular rate and regular rhythm GI normal to inspection, nondistended, normoactive bowel sounds and non-tender Narrative: Right testicle is tender laterally. Cremasterics intact. Left testicle nontender. No hernia palpable. Back/Spine normal ROM and normal to inspection Extremity normal to inspection Extremity Narrative: 2+/4 bilateral dorsalis pedis pulses easily palpable even through the patient's sock. He has an intact right femoral pulse. There is no inguinal lymphadenopathy. All compartments of the right lower extremity thigh and lower leg are intact, soft, nondistended, and there is no significant tenderness with palpation throughout them. There is no skin abnormalities. There is no palpable cords. Full range of motion of the joint without limitation or difficulty. The leg looks similar to the contralateral on the left. Neuro oriented x3, no focal motor deficits and no sensory deficits noted Sensorium / Orientation: alert Psych mental status grossly normal and thought process normal Skin no wounds Rashes: no rashes MDM MDM MDM Narrative Medical decision making narrative: This patient presents by saying that his chronic right leg pain is now going into his scrotum. Rather I think he has a separate acute scrotal issue that just started a couple days ago according to him. The chronic pain he is having in the right lower extremity could be a number of things. I did a CPK, it is a little abnormal but not high enough to qualify for rhabdomyolysis and he has no signs of RADHA/renal failure, he is a little anemic but the rest of his labs are normal there is no leukocytosis. He seems to have normal 1+ symmetric reflexes both lower extremities, there is no clonus, toes are downgoing with Babinski testing and symmetric. This could be reflex sympathetic dystrophy, complex regional pain syndrome, some type of persistent pain related to his blood clot or it could be unrelated to the DVT that he had in recent past. I do not think he needs any other emergent imaging studies of his right lower extremity nor does he require repeat ultrasound given that he has been anticoagulated and the edema associated with his DVT is resolved and he is neurovascular intact distally with strong pulses and good blood flow. Labs were reviewed, as was ultrasound images and report which I agree with. It is essentially showing a normal scrotal ultrasound. I am going to treat him as if this could be early epididymitis with a week of doxycycline. I advised him that he will need to follow-up with regards to his relatively chronic leg pain. Family spoke with me outside the room, asked if alcohol could interact with any of his medications. Other than the Tylenol with codeine that he is not taking anymore, I do not think that it will other than make it easier for him to bleed even so while he is on a apixaban. He is aware of that. Patient states he is not an alcoholic but family states that he is and has no desire to stop or discontinue/curb his alcohol use. As I discussed with him that we will need to be up to him at some point which they agree with, it is just stressful and difficult with regards to the patient being in denial. Patient has an appointment in 10 days with PCP. Lab Data Attestation: I reviewed the patient's lab results. Labs: Laboratory Results - last 24 hr 02/24/25 11:00 WBC 6.4 RBC 3.05 L Hgb 10.5 L Hct 31.1 L MCV 102.0 H MCH 34.4 H MCHC 33.8 RDW Std Deviation 54.4 H RDW Coeff of Rudy 14.6 Plt Count 206 MPV 8.7 Immature Gran % (Auto) 0.300 Neut % (Auto) 70.0 Lymph % (Auto) 11.[address] [place] % (Auto) 15.9 H Eos % (Auto) 2.0 Baso % (Auto) 0.8 Absolute Neuts (auto) 4.5 Absolute Lymphs (auto) 0.70 L Nucleated RBC % 0 Sodium 140 Potassium 3.7 Chloride 102 Carbon Dioxide 20.7 L Anion Gap 17 H BUN 10 Creatinine 0.90 Estim Creat Clear Calc 103.47 Est GFR (MDRD) Non-Af 104 BUN/Creatinine Ratio 11.1 Glucose 92 Calcium 8.3 Total Creatine Kinase 224 H Radiography Diagnostic Testing: Clinical Impression(s) from Imaging Studies Testicular Ultrasound 02/24/25 10:48 IMPRESSION: NORMAL SCROTAL ULTRASOUND WITH DOPPLER. Reading Location: [id number] Discharge Plan Triage Chief Complaint: Lower Extremity Injury ED Provider: Toy Escalona Dx/Rx/DC Orders Clinical Impression: Epididymitis, right, Alcohol abuse, Chronic pain of right lower extremity Instructions: ED Epididymitis Prescriptions: New doxycycline monohydrate 100 mg capsule 100 mg PO BID Qty: 14 0RF No Action triamcinolone acetonide 0.1 % cream 1 applic topical DAILY desoximetasone [Topicort] 0.05 % cream 1 applic topical BID Qty: 100 0RF allopurinol 100 mg tablet 100 mg PO DAILY Qty: 90 1RF amlodipine 10 mg tablet 10 mg PO DAILY Qty: 90 1RF Zyrtec 10 mg capsule 10 mg PO DAILY Qty: 90 1RF cyclobenzaprine 10 mg tablet 10 mg PO TID PRN (Reason: muscle spasm) Qty: 30 0RF nebivolol 10 mg tablet See Rx Instructions .ROUTE .COMPLEX Qty: 180 1RF Dose Instruction: take 1 tablet by mouth once daily Rx Instructions: take 1 tablet by mouth once daily Xarelto 20 mg tablet 20 mg PO DAILY Qty: 90 1RF Rx Instructions: must administer with evening meal escitalopram oxalate [Lexapro] 10 mg tablet 10 mg PO QDAY Qty: 30 0RF Rx Instructions: started with 1/2 tablet for first 10-14 days Primary Care Provider: Care Physician,No Primary Referrals: Doctor,Your [Non-Staff] - Keep Rodney appointment Print Language: Indonesian Disposition Disposition: Home, Self Care
--- NOTE | 2025-02-24 13:18 | ED.RN ---
more water given to attempt to give urine sample
== END 2025-02-24 14:07 | disposition home or self-care (01) ==
PROVIDERS: Emergency Provider Emergency Medicine; Visit Provider Emergency Medicine
DX: N45.1 Epididymitis (principal); G89.29 Other chronic pain; N50.82 Scrotal pain; Z86.718 Personal history of other venous thrombosis and embolism; F10.10 Alcohol abuse, uncomplicated; M79.661 Pain in right lower leg; I10 Essential (primary) hypertension; Z79.01 Long term (current) use of anticoagulants; F17.210 Nicotine dependence, cigarettes, uncomplicated
CPT/HCPCS: 36415; 76870; 80048; 82550; 85025; 93976; 99282

== ENCOUNTER 2025-03-01 10:34 | Emergency (ER) | payer OTHER, SELFPAY ==
[2025-03-01 10:35] VITALS: BP 130/97; PULSE 88; RESP 17; TEMP 36.6; O2SAT 99; BMI 20.6
--- NOTE | 2025-03-01 11:03 | EDS_ITS ---
HPI History of Present Illness Chief Complaint: Other, Pain/Inj PFSH PFSH Medical History DVT (deep venous thrombosis) Gout HTN (hypertension) Acute exacerbation of chronic low back pain Difficulty balancing High blood pressure Frequent headaches Back problem Seasonal allergies Alcohol abuse Home Medications ?Medication ?Instructions ?Recorded ?Last Taken ?Type desoximetasone 0.05 % topical 1 applic topical BID #10 0 grams 08/07/23 Unknown Rx cream (Topicort) triamcinolone acetonide 0.1 % 1 applic topical DAILY 0 08/07/23 Unknown History topical cream allopurinol 100 mg tablet 100 mg PO DAILY #90 tabs Unknown Rx amlodipine 10 mg tablet 10 mg PO DAILY #90 tabs 03/21 02/09 Unknown Rx cetirizine 10 mg capsule (Zyrtec) 10 mg PO DAILY #90 c aps 04/15/24 Unknown Rx cyclobenzaprine 10 mg tablet 10 mg PO TID PRN muscle s pasm #30 04/15/24 Unknown Rx tabs nebivolol 10 mg tablet See Rx Instructions .Route 0 04/15/24 Unknown Rx .COMPLEX #180 tabs rivaroxaban 20 mg tablet (Xarelto) 20 mg PO DAILY #90 tabs 04/15/24 Unknown Rx escitalopram oxalate 10 mg tablet 10 mg PO QDAY #30 ta bs 07/27/24 Unknown Rx (Lexapro) doxycycline monohydrate 100 mg 100 mg PO BID #14 CAPSU LES 02/24/25 Unknown Rx capsule rivaroxaban 15 mg (42)-20 mg (9) See Rx Instructions P O .COMPLEX 03/01/25 Unknown Rx tablets in a starter pack (Xarelto #51 tabs DVT-PE Treatment 30-Day Starter) Allergy/AdvReac Type Severity Reaction Status Date / Time No Known Allergies Allergy Verified 03/01/25 10:38 Family History Grandfather Kidney disease Liver disease Skin cancer CVA (cerebral vascular accident) Uncle COPD (chronic obstructive pulmonary disease) Mental disorder Social History Smoking Status: Current every day smoker tobacco type: cigarettes alcohol intake: current substance use type: does not use what type of physical activity do you participate in: none EXAM Physical Exam Const Vital Signs: 03/01/25 10:35 03/01/25 13:50 Temperature 97.8 F Temperature Source Temporal Pulse Rate 88 Respiratory Rate 17 Respiratory Effort Short of Breath Respiratory Pattern Tachypnea Blood Pressure 130/97 H Blood Pressure Mean 108 Pulse Ox 99 Oxygen Delivery Method Room Air [facility] Narrative Medical decision making narrative: HISTORY OF PRESENT ILLNESS: Chief complaint: Shortness of breath, leg heaviness 49-year-old male history of VTE on Xarelto, chronic back pain, gout presents concern for multiple complaints. No shortness of breath. Notes compliance with Eliquis. Notes last dose was this morning. Denies bleeding diathesis. [place] cough fever chills. Denies leg swelling. He also endorses right quad pain that is worse when he rises from a seated position. Worse is worse and he touches his anterior leg. Also notes a nodular contracture along the palmar surface of his hand. REVIEW OF SYSTEMS: Pertinent positives: Shortness of breath, right leg pain, left hand contracture Pertinent negatives: Bleeding diathesis PHYSICAL EXAM: Nursing triage notes reviewed, Vital signs reviewed Constitutional: please see mdm HENT: MMM Eyes: Pupils equal round and reactive to light, Extraocular muscles intact Neck: No stridor, no JVD, full neck ROM Lungs: Clear to auscultation, No wheezing or rales. No increased work of breathing, no conversational dyspnea, no accessory muscle use, no nasal flaring. No respiratory distress noted Heart: Regular rate and rhythm, No murmurs, No rubs and No gallops, 2+ distal pulses (radial, femoral, posterior tibial) in all extremities Abdomen: Soft, there is no tenderness, rigidity, rebound or guarding, no obvious peritoneal signs, no palpable pulsatile abdominal masses, no auscultated abdominal bruit : No CVAT Extremities: No edema, TTP over right quadriceps. No TTP over deep veins of the leg. Left upper extremity with obvious Dupuytren's contracture/cord with some swelling and TTP over palmar hand/palmar fascia Neuro: No new focal neurological deficits, cranial nerves II through XII intact, 5/5 strength in all present extremities. Intact sensation to light touch in all present extremities, 2+ reflexes bilateral patella tendons. intact 5/5 strength with ok sign (median), intact finger abduction (ulnar) intact wrist extension (radial n). Intact sensation in the radial, ulnar, and median nerve di stributions. Skin: No rash or lesions noted MEDICAL DECISION MAKING: Chief Complaint: please see HPI External records reviewed: Reviewed recent ED visit from 02/24/2025 Factors affecting care: DVT, alcohol abuse Social determinants of health: History of alcohol abuse History obtained from others: none Consults: none none MDM Narrative: Patient was initially hemodynamically stable, afebrile and nontoxic-appearing. Exam without focal cardiopulmonary abnormalities. Right lower extremity warm well-perfused. No swelling. Intact pulses. No crepitus or bullae. No joint pain or inflammation. No sign of septic arthritis, necrotizing fasciitis. Suspect he is having a quad strain. In terms of the patient's hand complaint he is likely suffering from Dupuytren's contracture. The most concerning symptom was shortness of breath in the setting of DVT. Will obtain labs images to rule out PE. I obtained a broad lab and imaging workup to further determine if the patient was suffering from a life-threatening etiology. ALL IMAGES (IF OBTAINED) HAVE BEEN PERSONALLY REVIEWED AND INTERPRETED BY MYSELF. EKG normal sinus rhythm rate of 73, normal axis, no intervals, no STEMI CBC with no leukocytosis, noted mild anemia slightly worse than prior, no thrombocytopenia High-sensitivity troponin is negative, no evidence of myocardial ischemia BNP within normal limits suggesting no heart strain BMP without significant electrolyte abnormalities, noted slight elevation in anion gap consistent with endorgan hypoperfusion however not clinically significant in this context. Noted no metabolic acidosis with a normal bicarb CT angiogram of the chest showed evidence of bilateral pulmonary emboli Patient notes he has not skipped any doses of Eliquis. Discussed risk and benefits of admission versus discharge. Offered the patient hospitalization. The patient was alert and orient x 3 and had capacity to make his own medical decision and chose for go hospitalization at this time. Given he has been compliant with Eliquis and essentially failed outpatient therapy I decided to switch his anticoagulant from Eliquis to Xarelto. First dose given here 30-day starter pack given along with a prescription coupon for Xarelto. Strict return precautions were discussed. Prompt follow-up with PCP recommended. Gave outpatient hand follow-up for concern for Dupuytren's contracture. The patient and/or family, caregivers express understanding. The patient and/or family, caregivers agrees with the plan. Shared decision making: I will have a discussion with the patient and or visitors regarding risk/benefits of further testing or admission. They will be made aware of of the risk/benefits inherent in this decision they will be given the opportunity to voice understanding. Total critical care time today provided was at least 0 minutes. This excludes separately billable procedures. Critical care time (if documented) is secondary to the patient having high probability of clinically significant/life threatening deterioration in the patient's condition which required my urgent intervention. Impression: 1. Shortness of breath 2. Right quadricep strain 3. Dupuytren's contracture 4. Pulmonary embolism Dispo: Discharge home This note was generated with [employer] dictation software. It may contain incorrect words, spelling, and punctuation that were not noted in review of the chart prior to signing. Lab Data Labs: Laboratory Results - last 24 hr 03/01/25 11:39 WBC 4.9 RBC 2.79 L Hgb 9.5 L Hct 28.1 L MCV 100.7 H MCH 34.1 H MCHC 33.8 RDW Std Deviation 55.5 H RDW Coeff of Rudy 14.9 H Plt Count 169 MPV 9.1 Immature Gran % (Auto) 0.400 Neut % (Auto) 79.3 H Lymph % (Auto) 10.9 L [place] % (Auto) 7.8 Eos % (Auto) 1.0 Baso % (Auto) 0.6 Absolute Neuts (auto) 3.9 Absolute Lymphs (auto) 0.53 L Nucleated RBC % 0 Sodium 142 Potassium 3.3 Chloride 101 Carbon Dioxide 22.8 Anion Gap 18 H BUN 14 Creatinine 1.07 Estim Creat Clear Calc 87.43 Est GFR (MDRD) Non-Af 85 BUN/Creatinine Ratio 13.0 Glucose 82 Calcium 8.5 Troponin T High Sens 11 NT pro BNP II 74 Radiography Diagnostic Testing: Clinical Impression(s) from Imaging Studies Chest CTA 03/01/25 11:21 IMPRESSION: Bilateral pulmonary emboli. Hepatic steatosis. Critical results were communicated to Dr. Gibson at 12:50 p.m.. Reading Location: [facility] Discharge Plan Triage Chief Complaint: Other, Pain/Inj ED Provider: Bennie Gibson Dx/Rx/DC Orders Instructions: Understanding Dupuytren Contracture, Embolism Pulmonary Dc Prescriptions: New Xarelto DVT-PE Treat 30d Start 15 mg (42)- 20 mg (9) tablets,dose pack See Rx Instructions .ROUTE .COMPLEX Qty: 51 0RF Rx Instructions: take one-15 mg tablet twice daily for 21 days, then one-20 mg tablet once daily; must take with meal/food No Action triamcinolone acetonide 0.1 % cream 1 applic topical DAILY desoximetasone [Topicort] 0.05 % cream 1 applic topical BID Qty: 100 0RF allopurinol 100 mg tablet 100 mg PO DAILY Qty: 90 1RF amlodipine 10 mg tablet 10 mg PO DAILY Qty: 90 1RF Zyrtec 10 mg capsule 10 mg PO DAILY Qty: 90 1RF cyclobenzaprine 10 mg tablet 10 mg PO TID PRN (Reason: muscle spasm) Qty: 30 0RF nebivolol 10 mg tablet See Rx Instructions .ROUTE .COMPLEX Qty: 180 1RF Dose Instruction: take 1 tablet by mouth once daily Rx Instructions: take 1 tablet by mouth once daily Xarelto 20 mg tablet 20 mg PO DAILY Qty: 90 1RF Rx Instructions: must administer with evening meal doxycycline monohydrate 100 mg capsule 100 mg PO BID Qty: 14 0RF escitalopram oxalate [Lexapro] 10 mg tablet 10 mg PO QDAY Qty: 30 0RF Rx Instructions: started with 1/2 tablet for first 10-14 days Stand Alone Forms: ED Work / School Excuse Primary Care Provider: Care Physician,No Primary Referrals: Shaheen Wilkes MD [Med Staff - [employer]] - Camilo Neely MD [Med Staff - Active Staff] - Activity Restrictions/Additional Instructions: Thank you for trusting us with your care today! Your labs images today were concerning for blood clots in your lung. This is treated blood thinners. Please discontinue taking Eliquis and start taking Xarelto. Please return to the emergency department if your symptoms change or worsen. Specifically develop worsening shortness of breath, chest pain if you lose consciousness. If you develop any bleeding issues. Please follow with your primary care physician for further outpatient evaluation and management. Please follow with Dr. Neely open this is hand surgery) for further evaluation of concern for Dupuytren's contracture. Print Language: Lao Disposition Disposition: Home, Self Care
--- NOTE | 2025-03-01 11:21 | EKG12_ITS ---
Test Reason : LEG PAIN Blood Pressure : */* mmHG Vent. Rate : 73 BPM Atrial Rate : 73 BPM P-R Int : 152 ms QRS Dur : 80 ms QT Int : 414 ms P-R-T Axes : 60 30 42 degrees QTcB Int : 456 ms Normal sinus rhythm Normal ECG No previous ECGs available Confirmed by AC SHARPE, OMKAR ([id number]), editor publications KULWINDER NELSON ([id number]) on 03/07/2025 6:17:54 AM Referred By: CHASTITY Confirmed By: OMKAR SHEN MD
--- NOTE | 2025-03-01 11:21 | CT_ITS ---
PROCEDURE: CTA CHEST W/WO CONTRAST 03/01/2025 REASON FOR EXAM: SOB HX OF DVT TECHNIQUE: CTA CHEST W/WO CONTRAST Multiplanar Sagittal and Coronal images were obtained. CONTRAST: Isovue 370 VOLUME: 100 mL One or more dose reduction techniques were used (e.g., Automated exposure control, adjustment of the mA and/or kV according to patient size, use of iterative reconstruction technique). RADIATION DOSE SUMMARY: CTDlvol: 6 mGy DLP: 217 mGycm COMPARISON: Mostly on. FINDINGS: Left thyroid subcentimeter nodule. Peripheral soft tissues are unremarkable Esophagus is normal in caliber. Hypodense liver suggestive of steatosis. No mediastinal lymphadenopathy. No pericardial effusion. No evidence of heart strain. Bilateral lower lobar, segmental, and subsegmental filling defects. The lungs are clear. CT/CTA Chest W/WO Contrast IMPRESSION: Bilateral pulmonary emboli. Hepatic steatosis. Critical results were communicated to Dr. Gibson at 12:50 p.m.. Reading Location: [id number]
--- NOTE | 2025-03-01 11:25 | PCA ---
no old ekg
[2025-03-01 11:56] LABS: Hematocrit 28.1 % (40-54); Hemoglobin 9.5 g/dL (13.0-16.5); Immature Granulocytes Count 0.020 X10^3/uL (0.0-0.0); Mean Corp Hgb Conc 33.8 g/dL (32-36); Mean Corpuscular Volume 100.7 fL (80-94); Mean Platelet Vol. 9.1 fl (6.2-12.0); NRBC Flagged by Analyzer 0 % (0-5); POSITIVE DIFFERENTIAL YES; Platelet Count 169 K/mm3 (150-450); RBC Distribution Width CV 14.9 % (11.6-14.6); RBC Distribution Width SD 55.5 fl (35.1-43.9); Red Blood Count 2.79 M/mm3 (4.6-6.2); White Blood Count 4.9 K/mm3 (4.4-11.0)
[2025-03-01 12:20] LABS: Troponin T High Sensitivity 11 ng/L (<=22)
--- NOTE | 2025-03-01 13:27 | CM.ED ---
Social Work Reason for visit: No PCP SW entered room, introduced self to patient and explained reason for visit. Patient stated that he just became established with a PCP in [place], declined need for additional resources. No further needs identified at this time. Heaven Jones, DIRECTOR TRANSPORTATION, [employer]
[2025-03-01 14:00] LABS: Pro- Brain NATRIURETIC PEPTIDE 74 pg/mL (<=900)
[2025-03-01 14:01] LABS: Anion Gap 18 (5-15); BUN 14 mg/dL (4-19); BUN/Creat Ratio 13.0 RATIO (10-20); Calcium,Total 8.5 mg/dL (7.6-11.0); Carbon Dioxide 22.8 mmol/L (21.0-32.0); Chloride 101 mmol/L (98-108); Estimated Creatinine Clearance 87.43 ml/min (50-250); Glucose 82 mg/dL (70-99); Potassium 3.3 mmol/L (3.3-5.1)
[2025-03-01 14:25] VITALS: BP 144/104; PULSE 87; RESP 20; TEMP 36.4; O2SAT 99
--- OUTSIDE RECORDS SUMMARY | 2025-03-01 19:24 | XMS RPT_ITS | CCD ---
Author Organization [facility] Care Team Providers Care Clay Hoister Name Role Phone VIANEY RODRIGUEZ MD Primary Care [phone] Dr. Vianey Rodriguez Primary Care Provider [phone] Dr. Vianey Rodriguez Referring Provider [phone] Gerson MCMULLEN, MARIANO Isabel Attending Provider [phone] Colleen Israel MD Primary Care Provider VIANEY RODRIGUEZ MD Primary Care Unavailab Rebekah SHARPE, DR ADOLPH Bowles Attending Dr. Vianey Franks Primary Care Provider [phone] Dr. Vianey Rodriguez Attending Provider [phone] Dr. Vianey Rodriguez Referring Provider [phone] Vianey Rodriguez MD Primary Care Provider [phone] Colleen Israel MD Primary Care Provider Colleen RECORDS TECHNICIAN.[employer] DEVELOPER, Cori Unavailable BRANDON JONES MD Attending Unavail able VIANEY RODRIGUEZ MD Primary Care Unavailab VIANEY Márquez MD Primary Care Unavailab shine VERDE MD, DR ADOLPH Bowles Attending Grady GARCIA DO, DR DAHLIA Hope Attending Unavailable VIANEY RODRIGUEZ MD Primary Care Unavailab VIANEY Márquez MD Primary Care Unavailab STEPHANIE Sanchez MD Attending Unavailable VIANEY RODRIGUEZ MD Primary Care Unavailab MICHEL Marti DO Attending Unavailable EVELIO STUART DO Attending Unavailable MARIA ISABEL SHARPE, VIANEY B [facility], No Primary Primary Care Provider Unavailable Dr. Toy Escalona MD Emergency Provider Oleoje, Efewongbe Primary Care Unavailable Suman Campo Attending Unavailable Olecleve, Efewongbe Referring Unavailable Oleghe, Efewongbe Primary Care Unavailable Suman Campo Attending Unavailable Oleoje, Efewongharman Referring Unavailable Care Physician, No Primary Primary Care Unava ilable Toy Escalona Attending Unavailable Paige BRAR, Dr. Avery Emergency Provider Medications Current Medications Medication Drug Class(es) Dates Sig (Normalized) Sig (Original) acetaminophen 300 mg / codeine phosphate 30 mg oral tablet (1 source) Opioid Agonist Start: 01-14-2025 End: 01-17-2025 take 1 tablet by mouth every six hours as needed for pain Tylenol with Codeine #3 use acetaminophen-cod eine 300 mg-30 mg tablet Dose = 1 tab(s), Oral, q6hr, PRN as needed for pain, X 3 day(s), # 12 tab(s), 0 Refill(s), Leg pain, 78.2 Start Date: 01/14/25 Stop Date: 01/17/25 Status: Ordered Quantity: 12.0 Unit: tab(s) Repeat number: 1 Indications: Pain in leg, unspecified; apixaban 5 mg oral tablet (20 sources) Factor Xa Inhibitor Start: 01-11-2025 End: 02-10-2025 Eliquis Starter Pack for Treatment of DVT and PE 5 mg oral tablet [10mg BID x 7days-then 5mg BID], Oral, BID, # 74 tab(s), 0 Refill(s), DVT Treatment Dosing, 78.2 Start Date: 01/11/25 Stop Date: 02/10/25 Status: Ordered Quantity: 74.0 Unit: tab(s) Repeat number: 1 Start: 01-14-2023 End: 06-19-2023 take 1 tablet by mouth twice daily Apixaban (Eliquis Dvt-Pe Treat 30d Start) 5 mg (74 tabs) tablets,dose pack Discontinued 5 mg PO TWICE A DAY 74 0 January 14, 2023 12:00am June 19, 2023 4:24pm use as directed Comment on above: Take 1 tablet by caty th twice daily. aspirin 81 mg delayed release oral tablet (8 sources) Platelet Aggregation Inhibitor, Nonsteroidal Anti-inflammatory Drug take 1 tablet by mouth once daily aspirin, enteric coated (ASPIRIN, ENTERIC COATED) 81 mg EC tablet Take 81 mg by mouth once daily. Active Comment on above: Take 81 mg by mouth once daily. desoximetasone 0.5 mg/ml topical cream (2 sources) Corticosteroid Start: 024 Desoximetasone (Topicort) 0.05 % cream Active 1 NMA TOPICAL TWICE A DAY 100 0 August 07, 2023 1:00am Postinflammatory hyperpigmentation Postinflammatory hyperpigmentation doxycycline monohydrate 100 mg oral capsule (2 sources) Tetracycline-class Drug Start: take 1 capsule by mouth twice daily Doxycycline Monohydrate 100 mg capsule Active 100 mg PO TWICE A DAY 14 0 February 24, 2025 12:00am escitalopram 10 mg oral tablet (9 sources) Serotonin Reuptake Inhibitor Start: 025 escitalopram 10 mg oral tablet Dose : 10 mg = 1 tab(s), Oral, qDay, # 30 tab(s), 0 Refill(s) Start Date: 12/09/24 Status: Ordered Quantity: 30.0 Unit: tab(s) Repeat number: 1 Start: 04-15-2024 End: 07-27-2024 take 0.5 tablet by mouth once daily Escitalopram Oxalate (Lexapro) 10 mg tablet Active 10 mg PO daily 30 0 July 27, 2024 8:40am started with 1/2 tablet for first 10-14 days lidocaine 0.05 mg/mg medicated patch (3 sources) Antiarrhythmic, Amide Local Anesthetic Start: 02-03-2025 End: 02-13-2025 lidocaine 5% topical patch Apply 1 patch(es), Topical, Daily, X 10 day(s), # 10 patch(es), 0 Refill(s), 75 Start Date: 02/03/25 Stop Date: 02/13/25 Status: Ordered Quantity: 10.0 Unit: patch(es) Repeat number: 1 Start: 04-06-2022 End: 05-06-2022 lidocaine 5% topical patch A pply 1 patch(es), Topical, qDay, remove patches after 12 hours, X 30 day(s), # 30 patch(es), 0 Refill(s), 100 Start Date: 04/06/22 Stop Date: 05/06/22 Status: Ordered naproxen 500 mg delayed release oral tablet (12 sources) Nonsteroidal Anti-inflammatory Drug Start: 04-06-2022 End: 04-26-2022 naproxen 500 mg oral delayed release tablet Dose : 500 mg = 1 tab(s), Oral, BID, X 20 day(s), # 40 tab(s), 0 Refill(s), 04/26/22 12:59:00 EDT Start Date: 04/06/22 Stop Date: 04/26/22 Status: Ordered Start: 11-24-2021 End: 12-01-2021 take 1 tablet by mouth twice daily as needed Naproxen 250 mg tablet Discontinued 250 mg PO TWICE A DAY as needed November 26, 2021 12:00am November 26, 2021 10:37am Start: 01-15-2018 End: 05-28-2018 take 2 tablets by mouth twice daily Naproxen 500 mg tablet Discontinued 1000 mg PO TWICE A DAY January 15, 2018 12:00am May 28, 2018 12:31pm Start: 01-15-2018 End: 05-28-2018 take 1000 mg by mouth twice daily Naproxen Discontinued 1000 MG PO TWICE A DAY January 14, 2018 11:00pm May 28, 2018 11:31am rivaroxaban 20 mg oral tablet (6 sources) Factor Xa Inhibitor Start: 03-01-2025 take 1 tablet by mouth twice daily at mealtime Rivaroxaban (Xarelto Dvt-Pe Treat 30d Start) 15 mg (42)- 20 mg (9) tablets,dose pack Active 0 PO .COMPLEX 51 March 01, 2025 12:00am take one-15 mg tablet twice daily for 21 days, then one-20 mg tablet once daily; must take with meal/food Start: 06-19-2023 End: 04-15-2024 take 1 tablet by mouth once daily at dinner Rivaroxaban (Xarelto) 20 mg tablet Active 20 mg PO DAILY 90 April 15, 2024 10:47am must administer with evening meal triamcinolone acetonide 1 mg/ml topical cream (7 sources) Corticosteroid Start: 08-07-2023 Triamcinolone Acetonide 0.1 % cream Active 1 NMA TOPICAL DAILY August 07, 2023 1:00am Start: 01-21-2018 End: 09-06-2018 Triamcinolone Acetonide 0.1 % ointment Discontinued 1 NMA TOPICAL daily 80 1 January 21, 2018 12:00am September 06, 2018 3:46pm Completed/Discontinued Medications Medication Drug Class(es) Dates Sig (Normalized) Sig (Original) acetaminophen 325 mg / HYDROcodone bitartrate 5 mg oral tablet (8 sources) Opioid Agonist Start: 01-21-2023 End: 01-25-2023 Hydrocodone-Acetami nophen 5-325 mg tablet Discontinued 1 {tbl} PO Q8H as needed for Pain 12 4 0 January 21, 2023 January 24, 2023 12:00am January 25, 2023 12:04am Acute deep vein thrombosis (DVT) of right lower extremity Start: 01-21-2023 End: 01-25-2023 take 1 tablet by mouth every eight hours Hydrocodone-Acetaminophen Discontinued 1 TABLET PO Q8H 12 4 January 21, 2023 January 24, 2023 11:04pm Start: 01-14-2023 End: 01-21-2023 Hydrocodone-Acetaminophen 5- 325 mg tablet Discontinued 1 {tbl} PO EVERY 6 HOURS NEEDED as needed for Pain 10 3 0 January 14, 2023 January 21, 2023 11:02am Acute deep vein thrombosis (DVT) of right lower extremity Start: 01-14-2023 End: 01-21-2023 take 1 tablet by mouth every six hours as needed Hydrocodone-Acetaminophen Discontinued 1 TABLET PO EVERY 6 HOURS NEEDED 10 3 January 14, 2023 January 21, 2023 10:02am Start: 09-27-2016 take 1 tablet by caty th every four hours as needed for pain [place] 325- 5 mg oral tablet Dose = 1 tab(s), Oral, q4h, PRN as needed for pain, # 20 tab(s), 0 Refill(s) Start Date: 09/27/16 Status: Ordered allopurinol 100 mg oral tablet (7 sources) Xanthine Oxidase Inhibitor Start: 06-19-2023 End: 04-15-2024 take 1 tablet by mouth once daily Allopurinol 100 mg tablet Discontinued 100 mg PO DAILY 90 October 20, 2023 10:30am April 15, 2024 10:49am amLODIPine 10 mg oral tablet (20 sources) Dihydropyridine Calcium Channel Marcin Start: 03-31-2019 End: 04-15-2024 Amlodipine 10 mg tablet Discontinued 0 .ROUTE .COMPLEX 90 0 February 27, 2023 12:57pm November 06, 2023 3:27pm TAKE 1 TABLET DAILY baclofen 20 mg oral tablet (11 sources) gamma-Aminobutyric Acid-ergic Agonist Start: 11-24-2021 End: 01-19-2023 take 1 tablet by mouth three times daily as needed for muscle spasms Baclofen 20 mg tablet Discontinued 20 mg PO THREE TIMES A DAY as needed for muscle spasm 60 November 27, 2022 3:15pm January 19, 2023 8:03am cetirizine hydrochloride 10 mg oral tablet (20 sources) Histamine-1 Receptor Antagonist Start: 11-27-2022 End: 01-20-2024 take 1 tablet by mouth once daily Cetirizine 10 mg tablet Discontinued 10 mg PO DAILY 30 0 November 06, 2023 12:00am January 20, 2024 1:51pm Start: 03-31-2019 End: 04-15-2024 take 1 capsule by mouth once daily Cetirizine (Zyrtec) 10 mg capsule Discontinued 10 mg PO DAILY 90 3 November 06, 2023 3:29pm April 15, 2024 10:49am Start: 01-15-2018 End: 03-25-2019 take 1 tablet by mouth once daily Cetirizine (Zyrtec) 10 mg tablet Discontinued 10 mg PO daily January 15, 2018 12:00am March 25, 2019 10:14am Comment on above: Take 1 tablet by caty th every afternoon. cyclobenzaprine hydrochloride 10 mg oral tablet (20 sources) Muscle Relaxant Start: 04-06-2022 End: 04-13-2022 cyclobenzaprine 5 mg oral tablet Dose : 5 mg = 1 tab(s), Oral, TID, X 7 day(s), # 21 tab(s), 0 Refill(s), 04/13/22 12:59:00 EDT Start Date: 04/06/22 Stop Date: 04/13/22 Status: Ordered Start: 10-19-2020 End: 02-10-2025 take 1 tablet by mouth three times daily as needed for muscle spasms Cyclobenzaprine 10 mg tablet Discontinued 10 mg PO THREE TIMES A DAY as needed for muscle spasm 30 0 November 06, 2023 3:28pm April 15, 2024 10:49am Comment on above: Take by mouth. enteric contrast (will be provided with radiology test) (2 sources) Start: 02-18-2023 End: 02-19-2023 enteric contrast (will be provided with radiology test) For CT ABD/PEL W IVCON Routine order Administer, As Directed One Time Only, via Oral, Rectal, both Oral and Rectal, Enteric Tube, Stoma or Indwelling Catheter, Enteric Contrast as designated per enteric contrast guidelines 1 Each 0 02/18/2023 02/19/2023 Start: 02-18-2023 End: 02-19-2023 enteric contrast (will be pr ovided with radiology test) For CT ABD/PEL W IVCON Routine order Administer, As Directed One Time Only, via Oral, Rectal, both Oral and Rectal, Enteric Tube, Stoma or Indwelling Catheter, Enteric Contrast as designated per enteric contrast guidelines 1 Each 0 02/18/2023 02/19/2023 Active Comment on above: For CT ABD/PEL W IVC ON Routine order Administer, As Directed One Time Only, via Oral, Rectal, both Oral and Rectal, Enteric Tube, Stoma or Indwelling Catheter, Enteric Contrast as designated per enteric contrast guidelines gabapentin 600 mg oral tablet (5 sources) Anti-epileptic Agent Start: 2017 End: 2017 take 1 tablet by mouth three times daily Gabapentin 600 mg tablet Discontinued 600 mg PO THREE TIMES A DAY January 15, 2018 12:00am May 28, 2018 12:31pm hydroCHLOROthiazide 25 mg oral tablet (10 sources) Thiazide Diuretic Start: 2017 End: 2018 take 1 tablet by mouth once daily Hydrochlorothiazide 25 mg tablet Discontinued 25 mg PO daily 90 2 May 28, 2018 12:58pm March 31, 2019 10:13am iv contrast (will be provided with radiology test) (2 sources) Start: 2022 End: 2022 iv contrast (will be provided with radiology test) CT ABD/PEL -Inject, intravenously, once for 1 dose.No IV access, insert saline lock prior to the beginning of sedation, infusion, injection of imaging exam. Discontinue saline lock post exam. If Pt. has a central line or IVAD, may access for administration according to line specific nursing protocol. Once exam is complete flush line and de-access according to line specific nursing protocol in the CT contrast administration guidelines link. 1 Each 0 02/18/2023 02/19/2023 Start: 02-18-2023 End: 02-19-2023 iv contrast (will be provide d with radiology test) CT ABD/PEL -Inject, intravenously, once for 1 dose.No IV access, insert saline lock prior to the beginning of sedation, infusion, injection of imaging exam. Discontinue saline lock post exam. If Pt. has a central line or IVAD, may access for administration according to line specific nursing protocol. Once exam is complete flush line and de-access according to line specific nursing protocol in the CT contrast administration guidelines link. 1 Each 0 02/18/2023 02/19/2023 Active Comment on above: CT ABD/PEL -Inject, intravenously, once for 1 dose.No IV access, insert saline lock prior to the beginning of sedation, infusion, injection of imaging exam. Discontinue saline lock post exam. If Pt. has a central line or IVAD, may access for administration according to line specific nursing protocol. Once exam is complete flush line and de-access according to line specific nursing protocol in the CT contrast administration guidelines link. meloxicam 15 mg oral tablet (20 sources) Nonsteroidal Anti-inflammatory Drug Start: 2020 End: 2021 take 7.5-15 mg by mouth once daily as needed for pain Meloxicam (Mobic) 15 mg tablet Discontinued 7.5 - 15 mg PO DAILY as needed for back pain 30 June 27, 2021 3:56pm November 26, 2021 10:24am Comment on above: Take by mouth. methylPREDNISolone 4 mg oral tablet (5 sources) Corticosteroid Start: 2018 End: 2018 take 1 tablet by mouth once Methylprednisolone (Medrol (Warren)) 4 mg tablets,dose pack Discontinued 4 mg PO per package directions 21 5 0 March 25, 2019 12:00am March 29, 2019 12:00am March 31, 2019 12:07am nebivolol 10 mg oral tablet (20 sources) Start: 2022 take 1 tablet by mouth once daily Nebivolol Active 0 .ROUTE .COMPLEX 90 June 19, 2023 3:25pm take 1 tablet by mouth once daily Start: 06-09-2023 End: 06-19-2023 take 1 tablet by mouth once daily Nebivolol Discontinued 0 .ROUTE .COMPLEX June 09, 2023 10:54am June 19, 2023 3:26pm take 1 tablet by mouth once daily Start: 05-18-2023 End: 06-09-2023 take 1 tablet by mouth once daily Nebivolol Discontinued 0 .ROUTE .COMPLEX May 18, 2023 12:28pm June 09, 2023 10:54am take 1 tablet by mouth once daily Start: 04-06-2023 End: 05-18-2023 take 1 tablet by mouth once daily Nebivolol Discontinued 0 .ROUTE .COMPLEX April 06, 2023 9:54pm May 18, 2023 12:28pm take 1 tablet by mouth once daily Start: 03-09-2023 End: 04-15-2024 take 1 tablet by mouth once daily Nebivolol 10 mg tablet Discontinued 0 .ROUTE .COMPLEX 60 0 March 10, 2024 9:35am April 15, 2024 10:49am take 1 tablet by mouth once daily Start: 03-09-2023 End: 04-06-2023 take 1 tablet by mouth once daily Nebivolol Discontinued 0 .ROUTE .COMPLEX March 09, 2023 8:34pm April 06, 2023 9:55pm take 1 tablet by mouth once daily Start: 02-27-2023 End: 03-09-2023 Nebivolol 10 mg tablet Disco ntinued 0 .ROUTE .COMPLEX 14 0 February 27, 2023 4:53pm March 09, 2023 9:35pm TAKE 1 TABLET DAILY Start: 02-27-2023 End: 03-09-2023 Nebivolol Discontinued 0 .RO BINA .COMPLEX 14 February 27, 2023 3:53pm March 09, 2023 8:35pm TAKE 1 TABLET DAILY Start: 02-27-2023 End: 02-27-2023 Nebivolol 10 mg tablet Disco ntinued 0 .ROUTE .COMPLEX 90 0 February 27, 2023 12:57pm February 27, 2023 4:53pm TAKE 1 TABLET DAILY Start: 02-27-2023 End: 02-27-2023 Nebivolol Discontinued 0 .RO BINA .COMPLEX 90 February 27, 2023 11:57am February 27, 2023 3:53pm TAKE 1 TABLET DAILY Start: 03-25-2019 End: 03-25-2019 take 1 tablet by mouth once daily Nebivolol (Bystolic) 2.5 mg tablet Discontinued 2.5 mg PO DAILY March 25, 2019 12:00am March 25, 2019 10:14am Start: 01-15-2018 End: 06-04-2018 take 1 tablet by mouth once daily Nebivolol (Bystolic) 5 mg tablet Discontinued 5 mg PO daily 90 May 25, 2018 5:51pm May 28, 2018 12:58pm Start: 09-27-2016 End: 02-27-2023 take 1 tablet by mouth once daily Nebivolol (Bystolic) 10 mg tablet Discontinued 10 mg PO DAILY 10 November 15, 2022 1:24pm February 27, 2023 12:57pm Comment on above: Take 10 mg by mouth once daily. penicillin v potassium 500 mg oral tablet (1 source) Start: 09-27-2016 End: 10-04-2016 penicillin V potassium 500 mg oral tablet Dose : 500 mg = 1 tab(s), Oral, QID, # 28 tab(s), 0 Refill(s) Start Date: 09/27/16 Stop Date: 10/04/16 Status: Ordered predniSONE 10 mg oral tablet (11 sources) Start: 04-06-2022 End: 04-11-2022 take 1 tablet by mouth once predniSONE 10 mg oral tablet Dose : 30 mg = 3 tab(s), Oral, BID, -Take 60mg (6tabs) the 1st dose. -30mg every 12 hrs. after 1st dose, # 33 tab(s), 0 Refill(s) Start Date: 04/06/22 Stop Date: 04/11/22 Status: Ordered Start: 11-26-2021 End: 01-19-2023 Prednisone 10 mg tablet Disc ontinued 0 PO daily 30 November 27, 2022 12:00am January 19, 2023 7:41am 4 tabs for 3 days, then 3 tabs for 3 days, then 2 tabs for 3 days, then 1 tab for 3 days PO QDAY; administer with food or milk Problems Problem Classification Problem Date Documented Da te Episodic/Chronic Alcohol-related disorders (5 sources) Alcohol abuse; Translations: [Alcohol abuse, uncomplicated] 01-15-2018 Chronic E Codes: Fall (2 sources) Fall; Translations: [Unspecified fall, initial encounter] Onset: 01-14-2025 Episodic Essential hypertension (20 sources) Hypertensive disorder; Translations: [Essential (primary) hypertension] Onset: 01-27-2023 09-27-2016 Chronic Gout and other crystal arthropathies (9 sources) Acute gout; Translations: [Gout, unspecified] 03-25-2019 Chronic Headache; including migraine (5 sources) Frequent headache; Translations: [Frequent headaches] 01-15-2018 Episodic Inflammatory conditions of male genital organs (2 sources) Epididymitis; Translations: [Epididymitis] 02-24-2025 Episodic Lymphadenitis (2 sources) Localized enlarged lymph nodes; Translations: [Localized enlarged lymph nodes] 02-18-2023 Episodic Mood disorders (2 sources) Depressive disorder; Translations: [Depressive disorder] 04-17-2024 Chronic Other aftercare (1 source) Patient encounter status; Translations: [Other long term care administrator (current) drug therapy] 04-14-2023 Episodic Other connective tissue disease (1 source) Other muscle spasm; Translations: [Spasm of muscle] 11-27-2022 Episodic Other connective tissue disease (3 sources) Pain in lower limb; Translations: [Pain in leg, unspecified] Onset: 01-14-2025 Episodic Other connective tissue disease (1 source) Pain in right lower limb; Translations: [Pain in right leg] Onset: 01-27-2025 Episodic Other connective tissue disease (1 source) Pain in right leg; Translations: [Pain in right leg] Onset: 01-27-2025 Episodic Other connective tissue disease (1 source) Pain in leg, unspecified; Translations: [Pain in leg, unspecified] Onset: 01-14-2025 Episodic Other eye disorders (2 sources) Epithelial inclusion cyst of eyelid; Translations: [Cysts of unspecified eye, unspecified eyelid] 11-06-2023 Episodic Other inflammatory condition of skin (2 sources) Psoriasis; Translations: [Psoriasis, unspecified] 08-07-2023 Chronic Other injuries and conditions due to external causes (1 source) Injury of head; Translations: [Unspecified injury of head, initial encounter] Onset: 01-14-2025 Episodic Other injuries and conditions due to external causes (1 source) Unspecified injury of head, initial encounter; Translations: [Unspecified injury of head, initial encounter] Onset: 01-14-2025 Episodic Other non-traumatic joint disorders (1 source) Pain in right shoulder; Translations: [Pain in joint, shoulder region] 11-27-2022 Episodic Other non-traumatic joint disorders (1 source) Pain in left knee; Translations: [Pain in joint, lower leg] 06-24-2021 Episodic Other skin disorders (5 sources) Post-inflammatory hyperpigmentation; Translations: [Postinflammatory hyperpigmentation] 05-28-2018 Episodic Other upper respiratory disease (5 sources) Seasonal allergy; Translations: [Other seasonal allergic rhinitis] 01-15-2018 Chronic Phlebitis; thrombophlebitis and thromboembolism (2 sources) Chronic deep venous thrombosis of femoral vein; Translations: [Chronic embolism and thrombosis of unspecified femoral vein] Onset: 01-11-2025 Chronic Phlebitis; thrombophlebitis and thromboembolism (20 sources) Acute deep vein thrombosis of lower limb; Translations: [Acute embolism and thrombosis of unspecified deep veins of right lower extremity] Onset: 01-27-2023 01-14-2023 Episodic Spondylosis; intervertebral disc disorders; other back problems (20 sources) Chronic low back pain; Translations: [Acute exacerbation of chronic low back pain] Onset: 01-27-2023 11-27-2021 Episodic Results Test Name Value Interpretation Reference Range Facility Absolute lymphocyte countOrd ered By: Bennie Gibson on 03-01-2025 Lymphocytes Auto (Unsp spec) [#/Vol] 0.53 10*3/uL Low 0.83-4.51 [facility] Absolute neutrophil countOrd ered By: Bennie Gibson on 03-01-2025 Neutrophils (Bld) [#/Vol] 3.9 10*3/uL 2.0-7.7 [facility] Anion gap in Serum or Plasma Ordered By: Bennie Gibson on 03-01-2025 Anion gap [Moles/Vol] 18 mmol/L High 5-15 [facility] Automated lymphocyte count a s percentage of total leukocytesOrdered By: Bennie Gibson on 03-01-2025 Lymphocytes/100 WBC Auto (Unsp spec) 10.9 % Low 19-41 [facility] BUN/creatinine ratioOrdered By: Bennie Gibson on 03-01-2025 Urea nitrogen/Creatinine [Mass ratio] 13.0 mg/mg 10-20 [facility] Basophil percentageOrdered B y: Bennie Gibson on 03-01-2025 Basophils/100 WBC (Bld) 0.6 % 0-1 [facility] Carbon dioxide, total [Moles /volume] in Central venous bloodOrdered By: Bennie Gibson on 03-01-2025 CO2 [Moles/Vol] 22.8 mmol/L 21.0-32.0 [facility] Chloride assayOrdered By: rocío Gibson on 03-01-2025 Chloride [Moles/Vol] 101 mmol/L 98-108 [facility] Eosinophil percentageOrdered By: Bennie Gibson on 03-01-2025 Eosinophils/100 WBC (Bld) 1.0 % 0-5 [facility] Erythrocyte distribution wid th ratioOrdered By: Bennie Gibson on 03-01-2025 Erythrocyte distribution width (RBC) [Ratio] 14.9 % High 11.6-14.6 [facility] Erythrocyte distribution wid th standard deviationOrdered By: Bennie Gibson on 03-01-2025 Erythrocyte distribution width (RBC) [Ratio] 55.5 fl High 35.1-43.9 [facility] Glomerular filtration rate ( GFR) estimation/1.73 sq m using serum, plasma, or whole bOrdered By: Bennie Gibson on 03-01-2025 GFR/1.73 sq M.predicted among non-blacks MDRD (S/P/Bld) [Vol rate/Area] 85 mL/min/{1.73_m2} >60 [facility] Comment on above: mL/min/1.73m2 CKD-EP I Creatinine Equation (2020) Hematocrit Auto (Bld) [Volum e fraction]Ordered By: Bennie Gibson on 03-01-2025 Hematocrit (Bld) [Volume fraction] 28.1 % Low 40-54 [facility] Hemoglobin measurementOrdere d By: Bennie Gibson on 03-01-2025 Hemoglobin (Bld) [Mass/Vol] 9.5 g/dL Low 13.0-16.5 [facility] Immature granulocytes/100 WB C Auto (Bld)Ordered By: Bennie Gibson on 03-01-2025 Immature granulocytes/100 WBC (Bld) 0.400 % 0.0-0.9 [facility] Comment on above: IG% - Immature Granu locytes (promyelocytes, myelocytes and metamyelocytes) > 1% indicates that a LEFT SHIFT is Present. MCV (mean corpuscular volume ) determinationOrdered By: Bennie Gibson on 03-01-2025 MCV (RBC) [Entitic vol] 100.7 fL High 80-94 [facility] Mean corpuscular hemoglobin (MCH) determinationOrdered By: Bennie Gibson on 03-01-2025 MCH (RBC) [Entitic mass] 34.1 pg High 27.0-32.0 [facility] Mean corpuscular hemoglobin concentration (MCHC) determinationOrdered By: Bennie Gibson on 03-01-2025 MCHC (RBC) [Mass/Vol] 33.8 g/dL 32-36 [facility] Mean platelet volume determi nationOrdered By: Bennie Gibson on 03-01-2025 Platelet mean volume (Bld) [Entitic vol] 9.1 fL 6.2-12.0 [facility] Monocyte percentageOrdered B y: Bennie Gibson on 03-01-2025 Monocytes/100 WBC (Bld) 7.8 % 0-10 [facility] Natriuretic peptide.B prohor gloria N-Terminal [Mass/volume] in Serum or PlasmaOrdered By: Bennie Gibson on 03-01-2025 Natriuretic peptide.B prohormone N-Terminal [Mass/Vol] 74 pg/mL <900 [facility] Comment on above: Heart Failure Unlike ly: < 300 pg/mLHeart Failure Likely< 50 Years: > 450 pg/mL50-75 Years: > 900 pg/mL>75 Years: > 1800 pg/mL Neutrophil percentageOrdered By: Bennie Gibson on 03-01-2025 Neutrophils/100 WBC (Bld) 79.3 % High 47-70 [facility] Nucleated red blood cell per centageOrdered By: Bennie Gibson on 03-01-2025 Nucleated RBC/100 WBC (Bld) [Ratio] 0 % 0-5 [facility] Platelet countOrdered By: Gorge Gibson on 03-01-2025 Platelets (Bld) [#/Vol] 169 10*3/uL 150-450 [facility] Potassium measurement (mass/ volume)Ordered By: Bennie Gibson on 03-01-2025 Potassium (Unsp spec) [Mass/Vol] 3.3 mmol/L 3.3-5.1 [facility] RBC Auto (Bld) [#/Vol]Ordere d By: Bennie Gibson on 03-01-2025 RBC (Bld) [#/Vol] 2.79 10*6/uL Low 4.6-6.[address] [facility] Serum creatinine measurement (mass/volume)Ordered By: Bennie Gibson on 03-01-2025 Creatinine [Mass/Vol] 1.07 mg/dL 0.70-1.20 [facility] Serum glucose measurement (m ass/volume)Ordered By: Bennie Gibson on 03-01-2025 Glucose [Mass/Vol] 82 mg/dL 70-99 [facility] Serum or plasma calcium karen urement (mass/volume)Ordered By: Bennie Gibson on 03-01-2025 Calcium [Mass/Vol] 8.5 mg/dL 7.6-11.0 [facility] Serum or plasma urea nitroge n measurement (mass/volume)Ordered By: Bennie Gibson on 03-01-2025 Urea nitrogen [Mass/Vol] 14 mg/dL 4-19 [facility] Sodium levelOrdered By: Quinn Gibson on 03-01-2025 Sodium [Moles/Vol] 142 mmol/L 133-145 [facility] Troponin T.cardiac [Mass/vol ume] in Serum or Plasma by High sensitivity methodOrdered By: Bennie Gibson on 03-01-2025 Troponin T.cardiac High sensitivity method [Mass/Vol] 11 ng/L <22 [facility] White blood cell (WBC) count Ordered By: Bennie Gibson on 03-01-2025 WBC (Bld) [#/Vol] 4.9 10*3/uL 4.4-11.0 [facility] Absolute lymphocyte countOrd ered By: Toy Escalona on 02-24-2025 Lymphocytes Auto (Unsp spec) [#/Vol] 0.70 10*3/uL Low 0.83-4.51 [facility] Absolute neutrophil countOrd ered By: Toy Escalona on 02-24-2025 Neutrophils (Bld) [#/Vol] 4.5 10*3/uL 2.0-7.7 [facility] Anion gap in Serum or Plasma Ordered By: Toy Escalona on 02-24-2025 Anion gap [Moles/Vol] 17 mmol/L High 5-15 [facility] Automated blood erythrocyte countOrdered By: Toy Escalona on 02-24-2025 RBC (Bld) [#/Vol] 3.05 10*6/uL Low 4.6-6.[address] [facility] Comment on above: Performed By: #### L 100.0100 #### [facility] [address], [place], [id number] Automated blood hematocrit ( percentage)Ordered By: Toy Escalona on 02-24-2025 Hematocrit (Bld) [Volume fraction] 31.1 % Low 40-54 [facility] Comment on above: Performed By: #### L 100.0100 #### [facility] [address], [place], [id number] Automated lymphocyte count a s percentage of total leukocytesOrdered By: Toy Escalona on 02-24-2025 Lymphocytes/100 WBC Auto (Unsp spec) 11.0 % Low 19-41 [facility] BUN/creatinine ratioOrdered By: Toy Escalona on 02-24-2025 Urea nitrogen/Creatinine [Mass ratio] 11.1 mg/mg 10-20 [facility] Basic Metabolic Profile (BMP )on 02-24-2025 BUN/CRE 11.1 RATIO Normal 10-20 [facility] Comment on above: Performed By: #### L 501.3620, L500.2500 #### [facility] [address] [place], [address] ECRCL 103.47 ml/min Normal 50-250 [facility] Comment on above: Performed By: #### L 501.3620, L500.2500 #### [facility] [address] [place], [address] GAP 17 High 5-15 [facility] Comment on above: Performed By: #### L 501.3620, L500.2500 #### [facility] [address] [place], [address] Potassium [Moles/Vol] 3.7 mmol/L Normal 3.3-5.1 [facility] Comment on above: Performed By: #### L 501.3620, L500.2500 #### [facility] [address] [place], [address] Basophil percentageOrdered B y: Toy Escalona on 02-24-2025 Basophils/100 WBC (Bld) 0.8 % 0-1 [facility] Comment on above: Performed By: #### L 100.0100 #### [facility] [address] [place], [address] CBC W/Diff, Automatedon 08-0 Absolute Lymph 0.70 X10 3/uL Low 0.83-4.51 [facility] Comment on above: Performed By: #### L 100.0100 #### [facility] [address] [place], [address] Absolute Neut 4.5 X10 3/uL Normal 2.0-7.7 [facility] Comment on above: Performed By: #### L 100.0100 #### [facility] [address] [place], [address] IG% 0.300 Normal 0.0-0.9 [facility] Comment on above: Result Comment: IG% - Immature Granulocytes (promyelocytes, myelocytes and metamyelocytes) > 1% indicates that a LEFT SHIFT is Present. Performed By: #### L 100.0100 #### [facility] [address] [place], [address] Lymphocytes/100 WBC (Bld) 11.0 % Low 19-41 [facility] Comment on above: Performed By: #### L 100.0100 #### [facility] [address] [place], [address] Nucleated RBC (Bld) [#/Vol] 0 10*3/uL Normal 0-5 [facility] Comment on above: Performed By: #### L 100.0100 #### [facility] [address] [place], [address] RDW SD 54.4 fl High 35.1-43.9 [facility] Comment on above: Performed By: #### L 100.0100 #### [facility] [address] [place], [address] CPK Total, Creatine Kinaseon 02-24-2025 CPK TOTAL 224 U/L High 24-195 [facility] Comment on above: Performed By: #### L 501.3620, L500.2500 #### [facility] [address] [place], [address] Carbon dioxide, total [Moles /volume] in Central venous bloodOrdered By: Toy Escalona on 02-24-2025 CO2 [Moles/Vol] 20.7 mmol/L Low 21.0-32.0 [facility] Comment on above: Performed By: #### L 501.3620, L500.2500 #### [facility] [address] [place], [address] Chloride assayOrdered By: Shana Escalona on 02-24-2025 Chloride [Moles/Vol] 102 mmol/L 98-108 [facility] Comment on above: Performed By: #### L 501.3620, L500.2500 #### [facility] [address] [place], [address] Emergency Department Summary on 02-24-2025 Emergency Department Summary [facility] Medical Records Department [address] [place] [address] Emergency Department Summary 02/24/25 MR#: [id number] Acct: [id number] Name: NITO ESTRADA Rep #: [id number] : 1975 49 From: Toy Escalona MD PCP: Care Physician,No Primary Status:REG ER Location: ED HPI History of Present Illness Chief Complaint: Lower Extremity Injury Informant: patient and family Narrative Narrative: 49-year-old male essentially comes in for a few days of pain in his right scrotum. He denies any urinary issues or new back pain, but he presents saying that his chronic right lower extremity pain is persistent and now is in my [scrotum]. He states he was diagnosed with a DVT months ago and placed on Eliquis, he has been on that, the edema in his right lower extremity has eventually resolved and is gone now, but the pain that he has been having for longer since before he was diagnosed which goes all the way up to his proximal thigh is persistent and unchanged and he states is a 10 out of 10 or more. He denies any pins and needle sensation. He denies any numbness distally. No bowel or bladder dysfunction. He states sometimes the leg gives out on him but that is intermittent but it feels weak. He is mostly concerned about the pain. PFSH PFSH Medical History DVT (deep venous thrombosis) Gout HTN (hypertension) Acute exacerbation of chronic low back pain Difficulty balancing High blood pressure Frequent headaches Back problem Seasonal allergies Alcohol abuse Home Medications ???Medication ???Instructions ???Recorded ???Last Taken ???Type desoximetasone 0.05 % topical 1 applic topical BID #100 grams Unknown Rx cream (Topicort) triamcinolone acetonide 0.1 % 1 applic topical DAILY 08/07/23 Un known History topical cream allopurinol 100 mg tablet 100 mg PO DAILY #90 tabs 04/15/24 Unknown Rx amlodipine 10 mg tablet 10 mg PO DAILY #90 tabs 04/15/24 U nknown Rx cetirizine 10 mg capsule (Zyrtec) 10 mg PO DAILY #90 caps 04/15/24 Unknown Rx cyclobenzaprine 10 mg tablet 10 mg PO TID PRN muscle spasm #30 04/15/24 Unknown Rx tabs nebivolol 10 mg tablet See Rx Instructions .Route 4 Unknown Rx .COMPLEX #180 tabs rivaroxaban 20 mg tablet (Xarelto) 20 mg PO DAILY #90 tabs 04/15/24 Unknown Rx escitalopram oxalate 10 mg tablet 10 mg PO QDAY #30 tabs 07/27/24 U nknown Rx (Lexapro) doxycycline monohydrate 100 mg 100 mg PO BID #14 CAPSULES 5 Unknown Rx capsule Allergy/AdvReac Type Severity Reaction Status Date / Time No Known Allergies Allergy Verified 04/15/24 09:54 Family History Grandfather Kidney disease Liver disease Skin cancer CVA (cerebral vascular accident) Uncle COPD (chronic obstructive pulmonary disease) Mental disorder Social History Smoking Status: Current every day smoker tobacco type: cigarettes alcohol intake: current substance use type: does not use what type of physical activity do you participate in: none ROS ROS ED Constitutional Constitutional ED: Denies chills or fever(s) Cardiovascular Cardiovascular: Denies chest pain Respiratory/Chest Respiratory/Chest: Denies dyspnea Gastrointestinal Gastrointestinal: Denies abdominal pain, diarrhea, nausea or vomiting Genitourinary Genitourinary ED: Reports scrotal pain; Denies dysuria, hematuria, scrotal swelling or urinary frequency Musculoskeletal Musculoskeletal: Reports extremity pain; Denies back pain or neck pain Integumentary Denies Abrasions, rash or wounds Neurologic Neurologic: Denies paresthesias or weakness EXAM Physical Exam Const Vital Signs: 02/24/25 10:26 02/24/25 10:27 Temperature 98 F Temperature Source Temporal Pulse Rate 98 Respiratory Rate 16 Blood Pressure 139/103 H 152/109 H Blood Pressure Mean 115 123 Pulse Ox 98 Oxygen Delivery Method Room Air Positive well nourished and well developed General Appearance ED: well developed and NAD Neck full ROM and supple Resp normal respiratory effort and clear to auscultation bilaterally Cardio regular rate and regular rhythm GI normal to inspection, nondistended, normoactive bowel sounds and non-tender Narrative: Right testicle is tender laterally. Cremasterics intact. Left testicle nontender. No hernia palpable. Back/Spine normal ROM and normal to inspection Extremity normal to inspection Extremity Narrative: 2+/4 bilateral dorsalis pedis pulses easily palpable even through the patient's sock. He has an intact right femoral pulse. There is no inguinal lymphadenopathy. All compartments of the right lower extremity thigh and lower leg are intact, soft, nondi (more content not included)... Normal [facility] Eosinophil percentageOrdered By: Toy Escalona on 02-24-2025 Eosinophils/100 WBC (Bld) 2.0 % 0-5 [facility] Comment on above: Performed By: #### L 100.0100 #### [facility] [address] [facility] [place], [place], [address] Erythrocyte distribution wid th ratioOrdered By: Toy Escalona on 02-24-2025 Erythrocyte distribution width (RBC) [Ratio] 14.6 % 11.6-14.6 [facility] Comment on above: Performed By: #### L 100.0100 #### [facility] [address] [place], [place], [address] Erythrocyte distribution wid th standard deviationOrdered By: Toy Escalona on 02-24-2025 Erythrocyte distribution width (RBC) [Ratio] 54.4 fl High 35.1-43.9 [facility] Glomerular filtration rate ( GFR) estimation/1.73 sq m using serum, plasma, or whole bOrdered By: Toy Escalona on 02-24-2025 GFR/1.73 sq M.predicted among non-blacks MDRD (S/P/Bld) [Vol rate/Area] 104 mL/min/{1.73_m2} >60 [facility] Comment on above: mL/min/1.73m2 CKD-EP I Creatinine Equation (2020) Result Comment: mL/m in/1.73m2 CKD-EPI Creatinine Equation (2020) Performed By: #### L 501.3620, L500.2500 #### [facility] [address] [place], [address] Hemoglobin measurementOrdere d By: Toy Escalona on 02-24-2025 Hemoglobin (Bld) [Mass/Vol] 10.5 g/dL Low 13.0-16.5 [facility] Comment on above: Performed By: #### L 100.0100 #### [facility] [address] [place], [address] Immature granulocytes/100 WB C Auto (Bld)Ordered By: Toy Escalona on 02-24-2025 Immature granulocytes/100 WBC (Bld) 0.300 % 0.0-0.9 [facility] Comment on above: IG% - Immature Granu locytes (promyelocytes, myelocytes and metamyelocytes) > 1% indicates that a LEFT SHIFT is Present. MCV (mean corpuscular volume ) determinationOrdered By: Toy Escalona on 02-24-2025 MCV (RBC) [Entitic vol] 102.0 fL High 80-94 [facility] Comment on above: Performed By: #### L 100.0100 #### [facility] [address] [facility] [place], [address] Mean corpuscular hemoglobin (MCH) determinationOrdered By: Toy Escalona on 02-24-2025 MCH (RBC) [Entitic mass] 34.4 pg High 27.0-32.0 [facility] Comment on above: Performed By: #### L 100.0100 #### [facility] [address] [facility] [place], [address] Mean corpuscular hemoglobin concentration (MCHC) determinationOrdered By: Toy Escalona on 02-24-2025 MCHC (RBC) [Mass/Vol] 33.8 g/dL 32-36 [facility] Comment on above: Performed By: #### L 100.0100 #### [facility] [address] [place], [address] Mean platelet volume determi nationOrdered By: Toy Escalona on 02-24-2025 Platelet mean volume (Bld) [Entitic vol] 8.7 fL 6.2-12.0 [facility] Comment on above: Performed By: #### L 100.0100 #### [facility] [address] [place], [address] Monocyte percentageOrdered B y: Toy Escalona on 02-24-2025 Monocytes/100 WBC (Bld) 15.9 % High 0-10 [facility] Comment on above: Performed By: #### L 100.0100 #### [facility] [address] [place], [address] Neutrophil percentageOrdered By: Toy Escalona on 02-24-2025 Neutrophils/100 WBC (Bld) 70.0 % 47-70 [facility] Comment on above: Performed By: #### L 100.0100 #### [facility] [address] [place], [address] Nucleated red blood cell per centageOrdered By: Toy Escalona on 02-24-2025 Nucleated RBC/100 WBC (Bld) [Ratio] 0 % 0-5 [facility] Platelet countOrdered By: Shana Escalona on 02-24-2025 Platelets (Bld) [#/Vol] 206 10*3/uL 150-450 [facility] Comment on above: Performed By: #### L 100.0100 #### [facility] [address] [place], [address] Potassium measurement (mass/ volume)Ordered By: Toy Escalona on 02-24-2025 Potassium (Unsp spec) [Mass/Vol] 3.7 mmol/L 3.3-5.1 [facility] Serum creatinine measurement (mass/volume)Ordered By: Toy Escalona on 02-24-2025 Creatinine [Mass/Vol] 0.90 mg/dL 0.70-1.20 [facility] Comment on above: Performed By: #### L 501.3620, L500.2500 #### [facility] [address] [place], [address] Serum glucose measurement (m ass/volume)Ordered By: Toy Escalona on 02-24-2025 Glucose [Mass/Vol] 92 mg/dL 70-99 [facility] Comment on above: Performed By: #### L 501.3620, L500.2500 #### [facility] [address] [place], [address] Serum or plasma calcium karen urement (mass/volume)Ordered By: Toy Escalona on 02-24-2025 Calcium [Mass/Vol] 8.3 mg/dL 7.6-11.0 [facility] Comment on above: Performed By: #### L 501.3620, L500.2500 #### [facility] [address] [place], [address] Serum or plasma creatine kin ase activityOrdered By: Toy Escalona on 02-24-2025 CK [Catalytic activity/Vol] 224 U/L High 24-195 [facility] Serum or plasma urea nitroge n measurement (mass/volume)Ordered By: Toy Escalona on 02-24-2025 Urea nitrogen [Mass/Vol] 10 mg/dL 4-19 [facility] Comment on above: Performed By: #### L 501.3620, L500.2500 #### [facility] [address] [place], [address] Sodium levelOrdered By: Joce Escalona on 02-24-2025 Sodium [Moles/Vol] 140 mmol/L 133-145 [facility] Comment on above: Performed By: #### L 501.3620, L500.2500 #### [facility] [address] [place], [address] Testicular with Arterial Niall won 02-24-2025 Testicular with Arterial Flow [facility] [address] [place] [address] Testicular with Arterial Flow MR#: [id number] Acct: [id number] Name: NITO ESTRADA Rep #: [id number] : 1975 M 49 From: Yrn horne MD PCP: Care Physician,No Primary Status: REG ER Study: Testicular with Arterial Flow Date of Exam: Exam# [id number] Ordering Dr: Toy Escalona MD PROCEDURE: TESTICULAR WITH ARTERIAL FLOW 02/24/2025 REASON FOR EXAM: R TESTICULAR PAIN TECHNIQUE: TESTICULAR WITH ARTERIAL FLOW COMPARISON: None FINDINGS: RIGHT testicle: 4.8 cm x 3.1 cm x 2.2 cm Homogeneous echotexture. No intratesticular mass. Right epididymis: Unremarkable. It measures 0.8 cm x 1.3 cm x 0.6 cm. LEFT testicle: 4.2 cm x 3.1 cm x 2.6 cm Homogeneous echotexture. No intratesticular mass. Left epididymis: Unremarkable. It measures 0.8 cm 1 cm 0.8 cm. Other findings: No hydrocele or large varicocele. DOPPLER FINDINGS: Symmetric color doppler blood flow signal at both testes. Normal arterial inflow and venous outflow waveforms at both testes. US/Testicular with Arterial Flow IMPRESSION: NORMAL SCROTAL ULTRASOUND WITH DOPPLER. Reading Location: [id number] CC: Dr. 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 PATIENT DEPARTED ED. Performed By: #### L 400.0001 #### [facility] [address] [place], [place], [address] BILIRUBIN URINE Normal Negative [facility] Comment on above: Order Comment: CLEAN CATCH Result Comment: NO S PECIMEN COLLECTED. PATIENT DEPARTED ED. Performed By: #### L 400.0001 #### [facility] [address] [place], [address] Clarity (U) Normal Clear [facility] Comment on above: Order Comment: CLEAN CATCH Result Comment: NO S PECIMEN COLLECTED. PATIENT DEPARTED ED. Performed By: #### L 400.0001 #### [facility] [address] [place], [address] Color (U) Normal Yellow [facility] Comment on above: Order Comment: CLEAN CATCH Result Comment: NO S PECIMEN COLLECTED. PATIENT DEPARTED ED. Performed By: #### L 400.0001 #### [facility] [address] [place], [address] EPI,SQUAMOUS Normal 0-5 [facility] Comment on above: Order Comment: CLEAN CATCH Result Comment: NO S PECIMEN COLLECTED. PATIENT DEPARTED ED. Performed By: #### L 400.0001 #### [facility] [address] [place], [address] GLUCOSE, UR Normal Normal [facility] Comment on above: Order Comment: CLEAN CATCH Result Comment: NO S PECIMEN COLLECTED. PATIENT DEPARTED ED. Performed By: #### L 400.0001 #### [facility] [address] [place], [address] KETONE UR Normal Negative [facility] Comment on above: Order Comment: CLEAN CATCH Result Comment: NO S PECIMEN COLLECTED. PATIENT DEPARTED ED. Performed By: #### L 400.0001 #### [facility] [address] [place], [address] LEUK ESTERASE Normal Negative [facility] Comment on above: Order Comment: CLEAN CATCH Result Comment: NO S PECIMEN COLLECTED. PATIENT DEPARTED ED. Performed By: #### L 400.0001 #### [facility] [address] [place], [address] Mucus Ql (Urine sed) Normal [facility] Comment on above: Order Comment: CLEAN CATCH Result Comment: NO S PECIMEN COLLECTED. PATIENT DEPARTED ED. Performed By: #### L 400.0001 #### [facility] [address] [place], [address] Nitrite Ql (U) Normal Negative [facility] Comment on above: Order Comment: CLEAN CATCH Result Comment: NO S PECIMEN COLLECTED. PATIENT DEPARTED ED. Performed By: #### L 400.0001 #### [facility] [address] [place] [address] OCCULT BLOOD-UR Normal Negative [facility] Comment on above: Order Comment: CLEAN CATCH Result Comment: NO S PECIMEN COLLECTED. PATIENT DEPARTED ED. Performed By: #### L 400.0001 #### [facility] [address] [place] [address] pH UR Normal 5.0 - 8.0 [facility] Comment on above: Order Comment: CLEAN CATCH Result Comment: NO S PECIMEN COLLECTED. PATIENT DEPARTED ED. Performed By: #### L 400.0001 #### [facility] [address] [place] [id number] PROT DIPSTX Normal Negative [facility] Comment on above: Order Comment: CLEAN CATCH Result Comment: NO S PECIMEN COLLECTED. PATIENT DEPARTED ED. Performed By: #### L 400.0001 #### [facility] [address] [place] [address] RBC Normal 0-5 [facility] Comment on above: Order Comment: CLEAN CATCH Result Comment: NO S PECIMEN COLLECTED. PATIENT DEPARTED ED. Performed By: #### L 400.0001 #### [facility] [address] [place] [id number] SP.GR. DIPSTX Normal 1.002-1.030 [facility] Comment on above: Order Comment: CLEAN CATCH Result Comment: NO S PECIMEN COLLECTED. PATIENT DEPARTED ED. Performed By: #### L 400.0001 #### [facility] [address] [place], [address] UR Preservative Normal [facility] Comment on above: Order Comment: CLEAN CATCH Result Comment: NO S PECIMEN COLLECTED. PATIENT DEPARTED ED. Performed By: #### L 400.0001 #### [facility] [address] [place], [address] UROBILI Normal Normal [facility] Comment on above: Order Comment: CLEAN CATCH Result Comment: NO S PECIMEN COLLECTED. PATIENT DEPARTED ED. Performed By: #### L 400.0001 #### [facility] [address] [place], [address] WBC Normal 0-5 [facility] Comment on above: Order Comment: CLEAN CATCH Result Comment: NO S PECIMEN COLLECTED. PATIENT DEPARTED ED. Performed By: #### L 400.0001 #### [facility] [address] [place], [address] White blood cell (WBC) count Ordered By: Toy Escalona on 02-24-2025 WBC (Bld) [#/Vol] 6.4 10*3/uL 4.4-11.0 [facility] Comment on above: Performed By: #### L 100.0100 #### [facility] [address] [place], [address] CNCOon 02-23-2025 CNCO Letter Text Normal [facility] CNPJasmin 02-20-2025 CNPN Telephone (FAMDNA) ---- NITO ESTRADA ([id number]) 1975 M Date Time Provider Department 02/20/25 [place] During your visit today, we recorded the following information about you: Ashli Vega MA 02/20/2025 11:04 AM Signed Patient is NOT checked in for appointment- patient not present in waiting room or gastelum at this time patient's name was called with no response a total of 3 times by this (ZAID) Ashli Vega. NOT Allergies As of Date: 02/20/2025 (No Known Allergies) Date Reviewed: 03/04/2023 Reviewed by: Heather Barr, RT(R) - Fully Assessed Reason for Visit: Appointment Confirmation [[id number]] Prescriptions as of 02/20/2025 - aspirin, enteric coated (ASPIRIN, ENTERIC COATED) 81 mg EC tablet Take 81 mg by mouth once daily. - apixaban (ELIQUIS) 5 mg tab(s) Take 1 tablet by mouth twice daily. - cetirizine (ZYRTEC) 10 mg tablet Take 1 tablet by mouth every afternoon. - apixaban (ELIQUIS) 5 mg tab(s) Take 1 tablet by mouth twice daily. - BYSTOLIC 10 mg tablet Take 10 mg by mouth once daily. - meloxicam (MOBIC) 15 mg tablet Take by mouth. - cyclobenzaprine (FLEXERIL) 10 mg tablet Take by mouth. Problem List As Of Date 02/20/2025 Noted Resolved Primary hypertension [I10] 01/27/2023 Acute deep vein thrombosis (DVT) of proximal ve*01/27/2023 Radiculopathy of lumbar region [M54.16] 01/27/2023 Chronic right-sided low back pain without sciat*01/27/2023 Encounter Status:Closed by ASHLI VEGA on 02/20/25 Normal [facility] XR HIP 2-3 VIEWS RIGHTon XR HIP 2-3 VIEWS RIGHT ORIGINAL EXAMINATION: XRAY VIEWS OF THE RIGHT HIP 02/03/2025 5:55 pm COMPARISON: None. HISTORY: ORDERING SYSTEM PROVIDED HISTORY: Reason for Exam: pain FINDINGS: No acute fracture or dislocation. Enthesopathy of the right iliac crest. Pelvic phleboliths. Vascular calcifications. IMPRESSION: No acute osseous findings. I have personally reviewed the images of this examination and agree with the resident's findings and interpretation. Interpreted by: Omkar Upton Preliminary Report By: Gee Rodriges Electronically signed By Omkar Upton Dictated Date: 02/03/2025 6:56:20 PM Prelim Date: 02/03/2025 6:59:33 PM Sign Date: 02/03/2025 7:04:48 PM Ordering Provider: BRANDON JONES [facility] XR SPINE LUMBAR AP/LATon XR SPINE LUMBAR AP/LAT ORIGINAL EXAMINATION: XRAY VIEWS OF THE LUMBAR SPINE 02/03/2025 5:55 pm COMPARISON: 12/09/2024 HISTORY: ORDERING SYSTEM PROVIDED HISTORY: Reason for Exam: pain FINDINGS: Vertebral body heights are maintained. Multilevel degenerative changes of the spine with varying degrees of disc height loss, osteophyte formation, facet arthropathy and neuroforaminal narrowing, greatest in the lower lumbar spine and better evaluated on recent CT L-spine. Atherosclerosis of the abdominal aorta. IMPRESSION: No acute osseous abnormality by radiograph. I have personally reviewed the images of this examination and agree with the resident's findings and interpretation. Interpreted by: Omkar Upton Preliminary Report By: Gee Rodriges Electronically signed By Omkar Upton Dictated Date: 02/03/2025 7:00:18 PM Prelim Date: 02/03/2025 7:02:21 PM Sign Date: 02/03/2025 7:03:50 PM Ordering Provider: BRANDON JONES [facility] CT HEAD OR BRAIN W/O CONTRAS Ton 01-14-2025 CT HEAD OR BRAIN W/O CONTRAST ORIGINAL EXAMINATION: CT OF THE HEAD WITHOUT CONTRAST 01/14/2025 10:32 pm TECHNIQUE: CT of the head was performed without the administration of intravenous contrast. Automated exposure control, iterative reconstruction, and/or weight based adjustment of the mA/kV was utilized to reduce the radiation dose to as low as reasonably achievable. COMPARISON: None. HISTORY: ORDERING SYSTEM PROVIDED HISTORY: Reason for Exam: pt c/o R sided leg pain. seems to be a chronic issue, states this has been going on for a while. states he did fall his afternoon. did hit his head; head trauma, moderate-severe ; Head trauma, minor, normal mental status FINDINGS: BRAIN/VENTRICLES: There is no acute intracranial hemorrhage, mass effect or midline shift. No abnormal extra-axial fluid collection. The molina-white differentiation is maintained without evidence of an acute infarct. Mild generalized parenchymal volume loss with concordant expansion of ventricular system. There is no evidence of hydrocephalus. Scattered white matter hypodensities, nonspecific but likely representing chronic microvascular angiopathy. Atherosclerosis of bilateral carotid siphons. Senescent calcification within bilateral basal ganglia. ORBITS: The visualized portion of the orbits demonstrate no acute abnormality. SINUSES: Possible chronic sinusitis of the right frontal and ethmoid sinuses. The mastoids are clear. SOFT TISSUES/SKULL: No acute abnormality of the visualized skull. Mild high posterior scalp soft tissue swelling.. IMPRESSION: No acute intracranial hemorrhage or large vessel territory infarct. Mild high posterior scalp soft tissue swelling. I have personally reviewed the images of this examination and agree with the resident's findings and interpretation. Interpreted by: Praful Jefferson DO Preliminary Report By: Christ Dove Electronically signed By Praful Jefferson DO Dictated Date: 01/14/2025 10:43:45 PM Prelim Date: 01/14/2025 10:45:49 PM Sign Date: 01/14/2025 10:48:56 PM Ordering Provider: MICHEL KIM Interpreted by: Praful Jefferson DO Preliminary Report By: Christ Dove Electronically signed By Praful Jefferson DO Dictated Date: 01/14/2025 10:43:45 PM Prelim Date: 01/14/2025 10:45:49 PM Sign Date: 01/14/2025 10:48:56 PM Ordering Provider: MICHEL KIM [facility] XR CHEST 1 VIEWon 01-14-2025 XR CHEST 1 VIEW ORIGINAL EXAMINATION: ONE XRAY VIEW OF THE CHEST 01/14/2025 10:02 pm COMPARISON: None. HISTORY: ORDERING SYSTEM PROVIDED HISTORY: Reason for Exam: pt c/o R sided leg pain. seems to be a chronic issue, states this has been going on for a while. states he did fall his afternoon. did hit his head chest pain FINDINGS: Cardiomediastinal contour is normal. No focal consolidation or pulmonary edema. No pneumothorax or pleural effusion. No acute osseous abnormality. IMPRESSION: No acute radiographic abnormality. I have personally reviewed the images of this examination and agree with the resident's findings and interpretation. Interpreted by: Praful Jefferson DO Preliminary Report By: Christ Dove Electronically signed By Praful Jefferson DO Dictated Date: 01/14/2025 10:15:43 PM Prelim Date: 01/14/2025 10:17:28 PM Sign Date: 01/14/2025 11:03:31 PM Ordering Provider: MICHEL KIM Interpreted by: Praful Jefferson DO Preliminary Report By: Christ Dove Electronically signed By Praful Jefferson DO Dictated Date: 01/14/2025 10:15:43 PM Prelim Date: 01/14/2025 10:17:28 PM Sign Date: 01/14/2025 11:03:31 PM Ordering Provider: MICHEL KIM [facility] XR KNEE 1 OR 2 VIEWS RIGHTon 01-14-2025 XR KNEE 1 OR 2 VIEWS RIGHT ORIGINAL EXAMINATION: TWO XRAY VIEWS OF THE RIGHT KNEE 01/14/2025 10:02 pm COMPARISON: None. HISTORY: ORDERING SYSTEM PROVIDED HISTORY: Reason for Exam: pt c/o R sided leg pain. seems to be a chronic issue, states this has been going on for a while. states he did fall his afternoon. did hit his head fall FINDINGS: No acute fracture or dislocation. No significant degenerative changes of the knee. No significant knee joint effusion or soft tissue swelling. Vascular calcifications. IMPRESSION: No acute osseous abnormality. I have personally reviewed the images of this examination and agree with the resident's findings and interpretation. Interpreted by: Praful Jefferson DO Preliminary Report By: Christ Dove Electronically signed By Praful Jefferson DO Dictated Date: 01/14/2025 10:17:45 PM Prelim Date: 01/14/2025 10:18:27 PM Sign Date: 01/14/2025 11:04:26 PM Ordering Provider: MICHEL KIM Interpreted by: Praful Jefferson DO Preliminary Report By: Christ Dove Electronically signed By Praful Jefferson DO Dictated Date: 01/14/2025 10:17:45 PM Prelim Date: 01/14/2025 10:18:27 PM Sign Date: 01/14/2025 11:04:26 PM Ordering Provider: MICHEL KIM [facility] CT SPINE LUMBAR W/O CONTRAST on 12-09-2024 CT SPINE LUMBAR W/O CONTRAST ORIGINAL EXAMINATION: CT OF THE LUMBAR SPINE WITHOUT CONTRAST 12/09/2024 TECHNIQUE: CT of the lumbar spine was performed without the administration of intravenous contrast. Multiplanar reformatted images are provided for review. Adjustment of mA and/or kV according to patient size was utilized. Automated exposure control, iterative reconstruction, and/or weight based adjustment of the mA/kV was utilized to reduce the radiation dose to as low as reasonably achievable. COMPARISON: MRI lumbar spine 06/13/2014 HISTORY: ORDERING SYSTEM PROVIDED HISTORY: Reason for Exam: back pain FINDINGS: BONES/ALIGNMENT: For the purposes of this report, there are 5 non rib-bearing lumbar vertebral bodies. There is normal lumbar spine alignment. Straightening of lumbar spine curvature.. Vertebral body heights are maintained. No acute compression deformity. DEGENERATIVE CHANGES: Multilevel lumbar spine degenerative changes, including multilevel broad disc bulges. Multilevel disc space narrowing particularly at L3-L4 and L4-L5 level. Multilevel facet arthropathy. Multilevel mild spinal canal stenosis as well as bilateral subarticular stenosis at L2-L3, L3-L4, L4-L5. Multilevel moderate to severe foraminal narrowing, most significant at L3-L4 level bilaterally. Degenerative changes at bilateral sacroiliac joints. Left adrenal gland nodule with mean HU 3, likely benign adrenal adenoma measuring 1.2 cm. Nodular hyperplasia of right adrenal gland. Hypodense appearance of liver suggesting diffuse hepatic steatosis. IMPRESSION: No acute osseous abnormality of lumbar spine. Degenerative change of the spine as above. I have personally reviewed the images of this examination and agree with the resident's findings and interpretation. Interpreted by: Omkar Upton Preliminary Report By: Erasto Louis Electronically signed By Omkar Upton Dictated Date: 12/09/2024 7:33:43 PM Prelim Date: 12/09/2024 7:38:48 PM Sign Date: 12/09/2024 7:49:38 PM Ordering Provider: CHRIST Gilmore [facility] Internal Medicine Office Vis dina 04-15-2024 Internal Medicine Office Visit [facility] [address] [place] [id number] OFFICE VISIT Date of Service: 04/15/24 MR#: [id number] Acct: [id number] Name: NITO ESTRADA Rep #: [id number] : 1975 Provider: ARNOLD Singh Age/Sex: 49/M Location[place] [facility] Status: Signed Intake Vital Signs 01/20/24 13:55 04/14/24 12:55 04/15/24 09:59 Height 6 ft 3 in 6 ft 3 in 6 ft 3 in Weight: 184 lb 168 lb BMI 23.0 20.9 BP 112/80 108/88 H Blood Pressure Location Lt brachial Lt brachial Position Sitting Sitting Respiration 16 16 Pulse 98 86 Pulse Source Monitor Monitor Temp 97.9 F 96.7 F L Temp Source Temporal Temporal Pulse Oximetry (%) 97 96 Oxygen Delivery Method room air room air Intake Visit Reasons: ACUTE MED FOLLOW UP Chief Complaint: ACUTE MED FOLLOW UP Is patient in pain?: No Allergies No Known Allergies Allergy (Verified 04/15/24 09:54) Medications ???Medication ???Instructions ???Recorded ???Confirmed ???Type desoximetasone 0.05 % topical 1 applic topical BID #100 grams 08/07/23 04/15/24 Rx cream (Topicort) triamcinolone acetonide 0.1 % 1 applic topical DAILY 08/07/23 04/15/24 History topical cream allopurinol 100 mg tablet 100 mg PO DAILY #90 tabs 04/15/24 04/15/24 Rx amlodipine 10 mg tablet 10 mg PO DAILY #90 tabs 04/15/24 04/15/24 Rx cetirizine 10 mg capsule (Zyrtec) 10 mg PO DAILY #90 caps 04/15/24 04/15/24 Rx cyclobenzaprine 10 mg tablet 10 mg PO TID PRN muscle spasm #30 04/15/24 04/15/24 Rx tabs escitalopram oxalate 10 mg tablet 10 mg PO QDAY #30 tabs 04/15/24 04/15/24 Rx (Lexapro) nebivolol 10 mg tablet See Rx Instructions .Route 04/15/24 04/15/24 Rx .COMPLEX #180 tabs rivaroxaban 20 mg tablet (Xarelto) 20 mg PO DAILY #90 tabs 04/15/24 04/15/24 Rx PFSH Medical History DVT (deep venous thrombosis) Gout HTN (hypertension) Acute exacerbation of chronic low back pain Difficulty balancing High blood pressure Frequent headaches Back problem Seasonal allergies Alcohol abuse Family History Grandfather Kidney disease Liver disease Skin cancer CVA (cerebral vascular accident) Uncle COPD (chronic obstructive pulmonary disease) Mental disorder Social History Smoking Status: Current every day smoker tobacco type: cigarettes alcohol intake: current substance use type: does not use what type of physical activity do you participate in: none Questionnaire Depression Screen PHQ-2/9 PHQ-2 Over the last 2 weeks, how often have you been bothered by any of the following problems? 1. Little interest or pleasure in doing things: nearly every day 2. Feeling down, depressed, or hopeless: nearly every day Total score: 6 If score is 2 or greater, continue 3. Trouble falling or staying asleep, or sleeping too much: nearly every day 4. Feeling tired or having little energy: nearly every day 5. Poor appetite or overeating: nearly every day (not hungry at all) 6. Feeling bad about yourself - or that you are a failure or have let yourself and your family down: nearly every day 7. Trouble concentrating on things, such as reading the newspaper or watching television: several days 8. Moving or speaking so slowly that other people could have noticed? - Or the opposite - being so fidgety or restless that you have been moving around a lot more than usual: more than half the days 9. Thoughts that you would be better off or of hurting yourself in some way: not at all Total score: 21 If you checked off any problems, how difficult have these problems made it for you to do your work, take care of things at home, or get along with other people?: somewhat difficult (completing things around the house.) Source: Developed by Drs. Camilo Small, Rosy Herron, Joaquin Farias and colleagues, with an educational mervin from [employer]. HPI HPI Chief Complaint: ACUTE MED FOLLOW UP Details: NITO ESTRADA, is a 49 M who presents to the office today to discuss some depression. He states that the past 2-3 months have been tough. He's dealt with recent of a family member and some other family issues and then on top of those things lost his job. He states that he started to see a counselor a month ago and will continue to see them. He has never been on medications in the past. He denies having any suicidal thoughts or ideations. He definitely has had physical symptoms with sleep, energy levels and most of all his eating. He states that he just doesn't feel like eating anything ever. He states that it doesn't matter what it is that he just doesn't feel hungry. He is drinking fluids ok during the day. He does drink soda stating that sometimes it a lot (2 cans in a day). He is currently smoking cigarettes (more content not included)... Normal [facility] Basophil percentageOrdered B y: Vianey Rodriguez on 06-19-2023 Chloride [Moles/Vol] 108 mmol/L 98-107 [facility] Glucose [Mass/Vol] 85 mg/dL 74-106 [facility] Potassium [Moles/Vol] 4.3 mmol/L 3.5-5.1 [facility] Sodium [Moles/Vol] 141 mmol/L 136-145 [facility] Laboratory - Chemistry and C hemistry - challengeOrdered By: Vianey Rodriguez on 06-19-2023 CO2 [Moles/Vol] 30.0 mmol/L 21.0-32.0 [facility] Urea nitrogen/Creatinine [Mass ratio] 14.6 mg/mg 10-20 [facility] No Panel InformationOrdered By: Vianey Rodriguez on 06-19-2023 Estimated GFR (MDRD) Amer 99 mL/min >60 [facility] Comment on above: GFR Calc Estimated GFR (MDRD) Non-Af Amer 82 mL/min >60 [facility] Comment on above: Non- GFR Calc Serum or plasma calcium karen urement (mass/volume)Ordered By: Vianey Rodriguez on 06-19-2023 Calcium [Mass/Vol] 9.0 mg/dL 8.5-10.1 [facility] Serum or plasma creatinine m easurement (mass/volume)Ordered By: Vianey Rodriguez on 06-19-2023 Creatinine [Mass/Vol] 1.03 mg/dL 0.70-1.30 [facility] Comment on above: The validity of the calculated GFR & GFRAA in patients over 70 years has not been determined. Clinical correlation is essential. Serum or plasma urea nitroge n measurement (mass/volume)Ordered By: Vianey Rodriguez on 06-19-2023 Urea nitrogen [Mass/Vol] 15 mg/dL 7-18 [facility] Serum or plasma uric acid me asurement (mass/volume)Ordered By: Vianey Rodriguez on 06-19-2023 Urate [Mass/Vol] 8.3 mg/dL 3.5-7.2 [facility] Comment on above: The drugs N-Acetylcy steine and Metamizole may falsely depress this assay. Thin prep Papanicolaou smear with manual screeningOrdered By: Vianey Rodriguez on 06-19-2023 Thin prep Papanicolaou smear with manual screening 3 5-15 [facility] XR FOOT MINIMUM 3 VIEWS LEFT on 04-26-2023 XR FOOT MINIMUM 3 VIEWS LEFT ORIGINAL EXAMINATION: THREE XRAY VIEWS OF THE LEFT FOOT 04/26/2023 3:11 pm COMPARISON: None. HISTORY: ORDERING SYSTEM PROVIDED HISTORY: Reason for Exam: pain generalized pain and swelling FINDINGS: No lytic or sclerotic osseous lesion. No fracture or dislocation. Small calcaneal enthesophyte at the insertion of the Achilles tendon. No ankle joint effusion. No significant degenerative change. No acute soft tissue abnormality. IMPRESSION: No acute osseous abnormality. I have personally reviewed the images of this examination and agree with the resident's findings and interpretations. Interpreted by: Duncan Benavides MD Preliminary Report By: Bernadette Suarez Electronically signed By Duncan Benavides MD Dictated Date: 04/26/2023 3:24:44 PM Prelim Date: 04/26/2023 3:26:38 PM Sign Date: 04/26/2023 3:49:24 PM Ordering Provider: ADOLPH Gilmore [facility] (ID) CT ABD/PEL W IVCONon 023 [facility] Absolute lymphocyte countOrd ered By: Toy Escalona on 01-14-2023 Lymphocytes Auto (Unsp spec) [#/Vol] 0.62 10*3/uL 0.83-4.51 [facility] Basophil percentageOrdered B y: Toy Escalona on 06-28-2023 Basophils/100 WBC (Bld) 0.5 % 0-1 [facility] Chloride [Moles/Vol] 107 mmol/L 98-107 [facility] Eosinophils/100 WBC (Bld) 1.7 % 0-5 [facility] Glucose [Mass/Vol] 112 mg/dL 74-106 [facility] Comment on above: Fasting Glucose resu lt from 100 to 125 mg/dL suggests IMPAIRED HOMEOSTASIS per A.D.A. criteria. Neutrophils (Bld) [#/Vol] 11.0 10*3/uL 2.0-7.7 [facility] Neutrophils/100 WBC (Bld) 86.8 % 47-70 [facility] Potassium [Moles/Vol] 3.4 mmol/L 3.5-5.1 [facility] Sodium [Moles/Vol] 140 mmol/L 136-145 [facility] WBC (Bld) [#/Vol] 12.7 10*3/uL 4.4-11.[address] [facility] Blood erythrocytes count (nu mber/volume)Ordered By: Toy Escalona on 01-14-2023 RBC (Bld) [#/Vol] 3.93 10*6/uL 4.6-6.[address] [facility] Blood hemoglobin measurement (mass/volume)Ordered By: Toy Escalona on 01-14-2023 Hemoglobin (Bld) [Mass/Vol] 14.3 g/dL 13.0-16.5 [facility] Blood lymphocytes/100 leukoc ytesOrdered By: Toy Escalona on 01-14-2023 Lymphocytes/100 WBC (Bld) 4.9 % 19-41 [facility] Blood monocytes/100 leukocyt esOrdered By: Toy Escalona on 01-14-2023 Monocytes/100 WBC (Bld) 5.5 % 0-10 [facility] Blood platelet mean volumeOr dered By: Toy Escalona on 01-14-2023 Platelet mean volume (Bld) [Entitic vol] 8.9 fL 6.2-12.0 [facility] Determination of erythrocyte mean corpuscular volume (MCV)Ordered By: Toy Escalona on 01-14-2023 MCV (RBC) [Entitic vol] 101.3 fL 80-94 [facility] Hematocrit Auto (Bld) [Volum e fraction]Ordered By: Toy Escalona on 01-14-2023 Hematocrit (Bld) [Volume fraction] 39.8 % 40-54 [facility] Laboratory - Chemistry and C hemistry - challengeOrdered By: Toy Escalona on 01-14-2023 CO2 [Moles/Vol] 24.0 mmol/L 21.0-32.0 [facility] Urea nitrogen/Creatinine [Mass ratio] 11.8 mg/mg 10-20 [facility] Laboratory - Hematology and Cell countsOrdered By: Toy Escalona on 01-14-2023 Erythrocyte distribution width (RBC) [Entitic vol] 43.2 fL 35.1-43.9 [facility] Erythrocyte distribution width (RBC) [Ratio] 11.6 % 11.6-14.6 [facility] Immature granulocytes/100 WBC (Bld) 0.600 % 0.0-0.9 [facility] Comment on above: IG% - Immature Granu locytes (promyelocytes, myelocytes and metamyelocytes) > 1% indicates that a LEFT SHIFT is Present. MCH (RBC) [Entitic mass] 36.4 pg 27.0-32.0 [facility] Nucleated RBC/100 WBC (Bld) [Ratio] 0 % 0-5 [facility] MCHC Auto (RBC) [Mass/Vol]Or dered By: Toy Escalona on 01-14-2023 MCHC (RBC) [Mass/Vol] 35.9 g/dL 32-36 [facility] No Panel InformationOrdered By: Toy Escaloan on 01-14-2023 Estimated Creatinine Clearance Calc 114.86 ml/min [facility] Estimated GFR (MDRD) Amer 110 mL/min >60 [facility] Comment on above: GFR Calc Estimated GFR (MDRD) Non-Af Amer 91 mL/min >60 [facility] Comment on above: Non- GFR Calc Platelets bldOrdered By: Joshua Escalona on 01-14-2023 Platelets (Bld) [#/Vol] 162 10*3/uL 150-450 [facility] Serum or plasma calcium karen urement (mass/volume)Ordered By: Toy Escalona on 01-14-2023 Calcium [Mass/Vol] 8.8 mg/dL 8.5-10.1 [facility] Serum or plasma creatinine m easurement (mass/volume)Ordered By: Toy Escalona on 01-14-2023 Creatinine [Mass/Vol] 0.94 mg/dL 0.70-1.30 [facility] Comment on above: The validity of the calculated GFR & GFRAA in patients over 70 years has not been determined. Clinical correlation is essential. Serum or plasma urea nitroge n measurement (mass/volume)Ordered By: Toy Escalona on 01-14-2023 Urea nitrogen [Mass/Vol] 11 mg/dL 7-18 [facility] Thin prep Papanicolaou smear with manual screeningOrdered By: Toy Escaolna on 01-14-2023 Thin prep Papanicolaou smear with manual screening 9 5-15 [facility] Absolute lymphocyte countOrd ered By: Chalo Niteo on 11-27-2022 Lymphocytes Auto (Unsp spec) [#/Vol] 0.90 10*3/uL 0.83-4.51 [facility] Basophil percentageOrdered B y: Chalo Nieto on 11-27-2022 Basophils/100 WBC (Bld) 0.5 % 0-1 [facility] Bilirubin [Mass/Vol] 0.50 mg/dL 0.20-1.00 [facility] Comment on above: For patients on eltr ombopag therapy, use of Dimension [place] TBIL is not recommended. Chloride [Moles/Vol] 110 mmol/L 98-107 [facility] Cholesterol [Mass/Vol] 220 mg/dL <200 [facility] Comment on above: <200 mg/dL Desirable 200-240 mg/dL Borderline >240 mg/dL High Risk Eosinophils/100 WBC (Bld) 2.8 % 0-5 [facility] Glucose [Mass/Vol] 100 mg/dL 74-106 [facility] Comment on above: Fasting Glucose resu lt from 100 to 125 mg/dL suggests IMPAIRED HOMEOSTASIS per A.D.A. criteria. Neutrophils (Bld) [#/Vol] 7.7 10*3/uL 2.0-7.7 [facility] Neutrophils/100 WBC (Bld) 80.7 % 47-70 [facility] Potassium [Moles/Vol] 4.0 mmol/L 3.5-5.1 [facility] Protein [Mass/Vol] 7.4 g/dL 6.4-8.2 [facility] Sodium [Moles/Vol] 141 mmol/L 136-145 [facility] Triglyceride [Mass/Vol] 89 mg/dL <199 [facility] Comment on above: The drugs N-Acetylcy steine and Metamizole may falsely depress this assay.Serum Triglycerides Reference Interval Normal <150 mg/dL Borderline high 150 - 199 mg/dL High 200 - 499 mg/dL Very High > or = 500 mg/dL WBC (Bld) [#/Vol] 9.5 10*3/uL 4.4-11.0 [facility] Blood erythrocytes count (nu mber/volume)Ordered By: Chalo Nieto on 11-27-2022 RBC (Bld) [#/Vol] 4.09 10*6/uL 4.6-6.[address] [facility] Blood hemoglobin measurement (mass/volume)Ordered By: Chalo Nieto on 11-27-2022 Hemoglobin (Bld) [Mass/Vol] 14.6 g/dL 13.0-16.5 [facility] Blood lymphocytes/100 leukoc ytesOrdered By: Chalo Nieto on 11-27-2022 Lymphocytes/100 WBC (Bld) 9.5 % 19-41 [facility] Blood monocytes/100 leukocyt esOrdered By: Chalo Nieto on 11-27-2022 Monocytes/100 WBC (Bld) 6.1 % 0-10 [facility] Blood platelet mean volumeOr dered By: Chalo Nieto on 11-27-2022 Platelet mean volume (Bld) [Entitic vol] 9.3 fL 6.2-12.0 [facility] Determination of erythrocyte mean corpuscular volume (MCV)Ordered By: Chalo Nieto on 11-27-2022 MCV (RBC) [Entitic vol] 106.1 fL 80-94 [facility] Hematocrit Auto (Bld) [Volum e fraction]Ordered By: Chalo Nieto on 11-27-2022 Hematocrit (Bld) [Volume fraction] 43.4 % 40-54 [facility] - Chemistry and C hemistry - challengeOrdered By: Chalo Nieto on 11-27-2022 ALP [Catalytic activity/Vol] 69 U/L 45-117 [facility] ALT [Catalytic activity/Vol] 35 U/L 16-61 [facility] CO2 [Moles/Vol] 26.0 mmol/L 21.0-32.0 [facility] Globulin (S) [Mass/Vol] 3.9 g/dL 2.2-4.2 [facility] Urea nitrogen/Creatinine [Mass ratio] 13.5 mg/mg 10-20 [facility] - Hematology and Cell countsOrdered By: Chalo Nieto on 11-27-2022 Erythrocyte distribution width (RBC) [Entitic vol] 43.9 fL 35.1-43.9 [facility] Erythrocyte distribution width (RBC) [Ratio] 11.2 % 11.6-14.6 [facility] Immature granulocytes/100 WBC (Bld) 0.400 % 0.0-0.9 [facility] Comment on above: IG% - Immature Granu locytes (promyelocytes, myelocytes and metamyelocytes) > 1% indicates that a LEFT SHIFT is Present. MCH (RBC) [Entitic mass] 35.7 pg 27.0-32.0 [facility] Nucleated RBC/100 WBC (Bld) [Ratio] 0 % 0-5 [facility] MCHC Auto (RBC) [Mass/Vol]Or dered By: Chalo Nieto on 11-27-2022 MCHC (RBC) [Mass/Vol] 33.6 g/dL 32-36 [facility] No Panel InformationOrdered By: Chalo Nieto on 11-27-2022 Estimated GFR (MDRD) Amer 98 mL/min >60 [facility] Comment on above: GFR Calc Estimated GFR (MDRD) Non-Af Amer 81 mL/min >60 [facility] Comment on above: Non- GFR Calc Thyroid Stimulating Hormone (TSH) 1.50 uIU/mL 0.358-3.74 [facility] Platelets bldOrdered By: Demi Nieto on 11-27-2022 Platelets (Bld) [#/Vol] 283 10*3/uL 150-450 [facility] Serum or plasma albumin karen urement (mass/volume)Ordered By: Chalo Nieto on 11-27-2022 Albumin [Mass/Vol] 3.5 g/dL 3.2-5.0 [facility] Serum or plasma albumin/glob ulin mass ratioOrdered By: Chalo Nieto on 11-27-2022 Albumin/Globulin [Mass ratio] 0.9 {ratio} 0.9-2.4 [facility] Serum or plasma calcium karen urement (mass/volume)Ordered By: Chalo Nieto on 11-27-2022 Calcium [Mass/Vol] 8.9 mg/dL 8.5-10.1 [facility] Serum or plasma cholesterol in HDL measurement (mass/volume)Ordered By: Chalo Nieto on 11-27-2022 Cholesterol in HDL [Mass/Vol] 61 mg/dL >40 [facility] Comment on above: The drugs N-Acetylcy steine and Metamizole may falsely depress this assay. Reference Range HDL <40 mg/dL Low HDL Cholesterol HDL >or= 60 mg/dL High HDL Cholesterol Serum or plasma cholesterol in VLDL measurement (mass/volume)Ordered By: Chalo Nieto on 11-27-2022 Cholesterol in VLDL [Mass/Vol] 18 mg/dL 5-40 [facility] Serum or plasma creatinine m easurement (mass/volume)Ordered By: Chalo Nieto on 11-27-2022 Creatinine [Mass/Vol] 1.04 mg/dL 0.70-1.30 [facility] Comment on above: The validity of the calculated GFR & GFRAA in patients over 70 years has not been determined. Clinical correlation is essential. Serum or plasma low density lipoprotein (LDL) cholesterol measurement (mass/volume)Ordered By: Chalo Nieto on 11-27-2022 Cholesterol in LDL [Mass/Vol] 141 mg/dL 0-130 [facility] Serum or plasma urea nitroge n measurement (mass/volume)Ordered By: Chalo Nieto on 11-27-2022 Urea nitrogen [Mass/Vol] 14 mg/dL 7-18 [facility] Thin prep Papanicolaou smear with manual screeningOrdered By: Chalo Nieto on 11-27-2022 Thin prep Papanicolaou smear with manual screening 31 U/L 15-37 [facility] Thin prep Papanicolaou smear with manual screening 5 5-15 [facility] XR Knee - left 4 Viewson * * *Final Report* * * DATE OF EXAM: Jun 24 2021 11:16AM WOX 5202 - XR KNEE 4V AP/PA BOTH+LAT/QUYEN LT / PROCEDURE REASON: Acute pain of left knee * * * * Physician Interpretation * * * * Indication: Left knee pain Comparison: None 4 x-rays of the left knee are obtained. There is normal architecture and mineralization of the bones. There is no acute fracture or dislocation. Joint spaces are maintained. There are superior and inferior patellar enthesophytes. Impression: 1. No acute fracture or dislocation. Forming Machine T[facility] Trans[facility] Date/Time: Jun 24 2021 11:18A Dictated by : KIMBERLY ADAMSON MD This examination was interpreted and the report reviewed and electronically signed by: KIMBERLY ADAMSON MD on Jun 24 2021 11:19AM EST DIVISION OF RADIOLOGY Provider, [facility] [place] - 06/24/2021 * * *Final Report* * * DATE OF EXAM: Jun 24 2021 11:16AM WOX 5202 - XR KNEE 4V AP/PA BOTH+LAT/QUYEN LT / PROCEDURE REASON: Acute pain of left knee * * * * Physician Interpretation * * * * Indication: Left knee pain Comparison: None 4 x-rays of the left knee are obtained. There is normal architecture and mineralization of the bones. There is no acute fracture or dislocation. Joint spaces are maintained. There are superior and inferior patellar enthesophytes. Impression: 1. No acute fracture or dislocation. Forming Machine Tender: [facility] Transcribe Date/Time: Jun 24 2021 11:18A Dictated by : KIMBERLY ADAMSON MD This examination was interpreted and the report reviewed and electronically signed by: KIMBERLY ADAMSON MD on Jun 24 2021 11:19AM EST [facility] Radiology Study observation (narrative) Maricel castro [facility] XR Knee - left 4 ViewsOrdere d By: [facility] Provider on 06-24-2021 [facility] Vital Signs Date Time Vital Sign Value Performing Clinician Facility 03-01-2025 14:25-0400 Body temperature 97.6 [degF] No Primary Care Physician [facility] 03-01-2025 14:25-0400 Diastolic blood pressure 104 mm[Hg] No Primary Care Physician [facility] 03-01-2025 14:25-0400 Heart rate 87 /min No Primary Care Physician [facility] 03-01-2025 14:25-0400 Respiratory rate 20 /min No Primary Care Physician [facility] 03-01-2025 14:25-0400 SaO2% (BldA) [Mass fraction] 99 % No Primary Care Physician [facility] 03-01-2025 14:25-0400 Systolic blood pressure 144 mm[Hg] No Primary Care Physician [facility] 03-01-2025 10:35-0400 Body height 190.5 cm No Primary Care Physician [facility] 03-01-2025 10:35-0400 Body mass index (BMI) [Ratio] 20.6 kg/m2 No Primary Care Physician [facility] 03-01-2025 10:35-0400 Body weight 74.84 kg No Primary Care Physician [facility] 02-24-2025 10:55-0400 Body mass index (BMI) [Ratio] 20.5 kg/m2 No Primary Care Physician [facility] 02-24-2025 10:55-0400 Body weight 74.5 kg No Primary Care Physician [facility] 02-24-2025 10:27-0400 Body height 190.5 cm No Primary Care Physician [facility] 02-24-2025 10:27-0400 Body temperature 98 [degF] No Primary Care Physician [facility] 02-24-2025 10:27-0400 Diastolic blood pressure 109 mm[Hg] No Primary Care Physician [facility] 02-24-2025 10:27-0400 Heart rate 98 /min No Primary Care Physician [facility] 02-24-2025 10:27-0400 Respiratory rate 16 /min No Primary Care Physician [facility] 02-24-2025 10:27-0400 SaO2% (BldA) [Mass fraction] 98 % No Primary Care Physician [facility] 02-24-2025 10:27-0400 Systolic blood pressure 152 mm[Hg] No Primary Care Physician [facility] 06-19-2023 15:11-0500 Body height 190.[address] Vianey Rodriguez Work Phone: [facility] 06-19-2023 15:11-0500 Body mass index (BMI) [Ratio] 24.1 kg/m2 Dr. Vianey Rodriguez Work Phone: [facility] 06-19-2023 15:11-0500 Body temperature 97.8 [degF] Dr. Vianey Rodriguez Work Phone: [facility] 06-19-2023 15:11-0500 Body weight 87.[address] Vianey Rodriguez Work Phone: [facility] 06-19-2023 15:11-0500 Diastolic blood pressure 100 mm[Hg] Dr. Vianey Rodriguez Work Phone: [facility] 06-19-2023 15:11-0500 Heart rate 73 /min Dr. Vianey Rodriguez Work Phone: [facility] 06-19-2023 15:11-0500 Respiratory rate 16 /min Dr. Vianey Rodriguez Work Phone: [facility] 06-19-2023 15:11-0500 SaO2% (BldA) [Mass fraction] 97 % Dr. Vianey Rodriguez Work Phone: [facility] 06-19-2023 15:11-0500 Systolic blood pressure 160 mm[Hg] Dr. Vianey Rodriguez Work Phone: [facility] 02-18-2023 13:11-0400 Body height 190.5 cm Jamie Renee MD Work Phone: [facility] 02-18-2023 13:11-0400 Body temperature 97.7 [degF] Jamie Renee MD Work Phone: [facility] 02-18-2023 13:11-0400 Body weight 86.18 kg Jamie Renee MD Work Phone: [facility] 02-18-2023 13:11-0400 Diastolic blood pressure 88 mm[Hg] Jamie Renee MD Work Phone: [facility] 02-18-2023 13:11-0400 Heart rate 114 /min Jamie Renee MD Work Phone: [facility] 02-18-2023 13:11-0400 Respiratory rate 14 /min Jamie Renee MD Work Phone: [facility] 02-18-2023 13:11-0400 SaO2% (BldA) [Mass fraction] 100 % Jamie Renee MD Work Phone: [facility] 02-18-2023 13:11-0400 Systolic blood pressure 128 mm[Hg] Jamie Renee MD Work Phone: [facility] 01-14-2023 11:00-0400 Body temperature 97.4 [degF] Dr. Vianey Rodriguez Work Phone: [facility] 01-14-2023 11:00-0400 Diastolic blood pressure 76 mm[Hg] Dr. Vianey Rodriguez Work Phone: [facility] 01-14-2023 11:00-0400 Heart rate 89 /min Dr. Vianey Rodriguez Work Phone: [facility] 01-14-2023 11:00-0400 Respiratory rate 16 /min Dr. Vianey Rodriguez Work Phone: [facility] 01-14-2023 11:00-0400 SaO2% (BldA) [Mass fraction] 100 % Dr. Vianey Rodriguez Work Phone: [facility] 01-14-2023 11:00-0400 Systolic blood pressure 124 mm[Hg] Dr. Vianey Rodriguez Work Phone: [facility] 01-14-2023 09:10-0400 Body height 190.[address] Vianey Rodriguez Work Phone: [facility] 01-14-2023 09:10-0400 Body mass index (BMI) [Ratio] 23.7 kg/m2 Dr. Vianey Rodriguez Work Phone: [facility] 01-14-2023 09:10-0400 Body weight 86.[address] Vianey Rodriguez Work Phone: [facility] 11-27-2022 15:02-0400 Body height 190.[address] Vianey Rodriguez Work Phone: [facility] 11-27-2022 15:02-0400 Body mass index (BMI) [Ratio] 23.6 kg/m2 Dr. Vianey Rodriguez Work Phone: [facility] 11-27-2022 15:02-0400 Body temperature 97.9 [degF] Dr. Vianey Rodriguez Work Phone: [facility] 11-27-2022 15:02-0400 Body weight 85.[address] Vianey Rodriguez Work Phone: [facility] 11-27-2022 15:02-0400 Diastolic blood pressure 86 mm[Hg] Dr. Vianey Rodriguez Work Phone: [facility] 11-27-2022 15:02-0400 Heart rate 80 /min Dr. Vianey Rodriguez Work Phone: [facility] 11-27-2022 15:02-0400 Respiratory rate 16 /min Dr. Vianey Rodriguez Work Phone: [facility] 11-27-2022 15:02-0400 SaO2% (BldA) [Mass fraction] 96 % Dr. Vianey Rodriguez Work Phone: [facility] 11-27-2022 15:02-0400 Systolic blood pressure 120 mm[Hg] Dr. Vianey Rodriguez Work Phone: [facility] 04-06-2022 12:44-0400 Body temperature 98.42 [degF] YAIN MADISON MD [facility] 04-06-2022 12:44-0400 Diastolic blood pressure 88 mm[Hg] YANI MADISON MD [facility] 04-06-2022 12:44-0400 Heart rate 88 /min YANI MADISON MD [facility] 04-06-2022 12:44-0400 Respiratory rate 20 /min YANI MADISON MD [facility] 04-06-2022 12:44-0400 Systolic blood pressure 127 mm[Hg] YANI MADISON MD [facility] 11-24-2021 12:13-0400 Diastolic blood pressure 105 mm[Hg] DR DAHLIA GARCIA DO [facility] 11-24-2021 12:13-0400 Heart rate 85 /min DR DAHLIA GARCIA DO [facility] 11-24-2021 12:13-0400 Respiratory rate 18 /min DR DAHLIA GARCIA DO [facility] 11-24-2021 12:13-0400 Systolic blood pressure 155 mm[Hg] DR DAHLIA GARCIA DO [facility] 11-24-2021 11:41-0400 Body temperature 98.06 [degF] DR DAHLIA GARCIA DO [facility] 11-24-2021 11:41-0400 Diastolic blood pressure 100 mm[Hg] DR DAHLIA GARCIA DO [facility] 11-24-2021 11:41-0400 Heart rate 85 /min DR DAHLIA GARCIA DO [facility] 11-24-2021 11:41-0400 Respiratory rate 18 /min DR DAHLIA GARCIA DO [facility] 11-24-2021 11:41-0400 Systolic blood pressure 151 mm[Hg] DR DAHLIA GARCIA DO [facility] Encounters Encounter Date Encounter Type Care Provider Facility Start: 03-01-2025 End: 03-01-2025 Emergency department patient visit No Primary Care Physician -Emergency Department Work Phone: Start: 02-24-2025 End: 02-24-2025 Emergency department patient visit No Primary Care Physician -Emergency Department Work Phone: Start: 02-20-2025 End: 02-20-2025 Telephone encounter Colleen Israel [facility] Comment on above: Appointment Confirma tion Start: 02-13-2025 End: 02-13-2025 ambulatory Colleen Israel MD Work Phone: [facility] Comment on above: Nurse Triage Call Start: 02-06-2025 End: 02-06-2025 Emergency department patient visit DR DAHLIA GARCIA DO [facility] Start: 02-03-2025 End: 02-03-2025 Emergency department patient visit DR CARINA MONTAGUE MD [facility] Start: 01-27-2025 End: 01-27-2025 Emergency department patient visit EVELIO STUART DO [facility] Start: 01-14-2025 End: 01-14-2025 Emergency department patient visit MICHEL KIM DO [facility] Start: 01-11-2025 End: 01-11-2025 Emergency department patient visit RICKI MACIAS DO [facility] Start: 12-09-2024 End: 12-09-2024 Emergency department patient visit VIANEY RODRIGUEZ MD Facility:[facility] Start: 04-15-2024 End: 04-15-2024 ambulatory Vianey Rodriguez Facility:[facility] Start: 03-23-2024 ambulatory Vianey Rodriguez Facili ty:[facility] Start: 06-19-2023 End: 06-19-[address] Vianey Rodriguez Work Phone: [facility] Work Phone: Start: 06-19-2023 End: 06-19-[address] Vianey Rodriguez Work Phone: [facility] Internal Medicine Work Phone: Start: 04-26-2023 End: 04-26-2023 Emergency department patient visit VIANEY RODRIGUEZ MD Facility:[facility] Start: 04-14-2023 ambulatory Colleen east MD Work Phone: Internal Medicine [facility] Start: 03-05-2023 End: 03-05-2023 Subsequent hospital visit by physician Ct Prep [facility] Comment on above: Localized enlarged l ymph nodes [R59.0] Start: 03-04-2023 Telephone encounter Meri BLANCAS Hematology/Oncology Start: 02-19-2023 Telephone encounter Jamie dawn MD Work Phone: Hematology/Oncology Comment on above: Medication Problem Start: 02-18-2023 End: 02-18-2023 ambulatory Jamie Renee MD Work Phone: Hematology/Oncology Comment on above: Localized enlarged l ymph nodes (Primary Dx); Acute deep vein thrombosis (DVT) of proximal vein of right lower extremity (HCC) Start: 02-18-2023 End: 02-18-2023 Patient encounter procedure Jamie Renee MD Work Phone: [facility] Start: 01-28-2023 Telephone encounter Chandler rosales DO Work Phone: Hematology/Oncology Comment on above: New Patient Start: 01-14-2023 End: 01-14-2023 Emergency department patient visit Dr. Vianey Rodriguez Work Phone: [facility] Work Phone: Start: 11-27-2022 End: 11-27-[address] Vianey Rodriguez Work Phone: [facility] Work Phone: Start: 11-27-2022 End: 11-27-[address] Vianey Rodriguez Work Phone: [facility] Internal Medicine Start: 04-06-2022 End: 04-06-2022 Emergency department patient visit YANI MADISON MD [facility] Start: 11-24-2021 End: 11-24-2021 Emergency department patient visit DR DAHLIA GARCIA DO [facility] Start: 06-24-2021 End: 06-24-2021 Subsequent hospital visit by physician [facility] Work Phone: Radiology Comment on above: Acute pain of left k nee [M25.562] Procedures Date Procedure Procedure Detail Performing Clinician Start: 03-01-2025 Estimated creatinine clearance No Primary Care Physician Start: 03-01-2025 CT angiography of ch est with contrast No Primary Care Physician Start: 02-24-2025 Estimated creatinine clearance No Primary Care Physician Start: 02-24-2025 Ultrasound of scrotu m with Doppler and color flow imaging No Primary Care Physician Start: 03-05-2023 Ct abdomen & pelvis w/contrast material Jamie Renee MD Work Phone: Start: 11-27-2022 Lipid 1996 panel - S araceli or Plasma Colleen Israel MD Work Phone: Start: 06-24-2021 Radiologic exam knee complete 4/more views Raymond Joshua APRN.PHP [employer] DEVELOPER Work Phone: None (qualifier value) DR COOPER GARCIA DO Plan of Treatment Date Care Activity Detail Author Start: 11-28-2027 Lipid 1996 panel - S araceli or Plasma Lipid Screening [facility] Start: 11-28-2027 Lipid [address] Lipid Screening [facility] Start: 11-28-2027 LIPID SCREEN LIPID SCREEN [facility] Start: 03-20-2025 Influenza vaccination Influenza Vacc ine (#1) [facility] Start: 03-06-2025 End: 03-06-2025 Patient encounter procedure 03/06/2025 3:40 PM EDT Office Visit [facility] [address] [address] Colleen Israel MD [address] [id number] office visit multiple issues [facility] Comment on above: office visit multipl e issues Start: 03-01-2025 [facility] Start: 03-01-2025 [facility] Start: 02-24-2025 [facility] Start: 02-20-2025 End: 02-20-2025 Patient encounter procedure 02/20/2025 11:00 AM EDT Office Visit [facility] [address] [address] Colleen Israel MD [address] [id number] est care [facility] Comment on above: est care Start: 2024 Shingrix Vaccine (1 of 2) Shingrix Vaccine (1 of 2) [facility] Start: 03-20-2024 Covid-19 Vaccine ( season) Covid-19 Vaccine ( season) [facility] Start: 03-20-2024 Influenza vaccination Influenza Vacc ine (#1) [facility] Start: 01-28-2024 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 STOCKING MIL[place]RO DISEASE VISIT ANNUAL PCP TEAM CHRONIC DISEASE VISIT [facility] Start: 01-28-2024 BP CONTROLLED (<130/80) BP CONTROLLE D (<130/80) [facility] Start: 04-14-2023 End: 06-14-2023 Basic metabolic 2000 panel - Serum or Plasma BASIC METABOLIC PNL Lab Routine Primary hypertension Expected: 04/14/2023, Expires: 06/14/2023 [facility] Work Phone: Comment on above: Expected: 04/14/2023 , Expires: 06/14/2023 Start: 04-14-2023 End: 06-14-2023 CBC panel - Blood by Automated count CBC Lab Routine Medication management Expected: 04/14/2023, Expires: 06/14/2023 [facility] Work Phone: Comment on above: Expected: 04/14/2023 , Expires: 06/14/2023 Start: 04-14-2023 End: 06-14-2023 Lipid 1996 panel - Serum or Plasma LIPID PANEL BASIC Lab Routine Primary hypertension Expected: 04/14/2023, Expires: 06/14/2023 [facility] Work Phone: Comment on above: Expected: 04/14/2023 , Expires: 06/14/2023 Start: 03-20-2023 Influenza vaccination [facility] Start: 01-14-2023 Plain X-ray of tibia and fibula Tibia & Fibula 2 Views [facility] Start: 01-14-2023 XR Tibia and Fibula 2 Views [facility] Start: 01-14-2023 [facility] Start: 11-27-2022 Patient referral [facility] Work Phone: Start: 2019 COLOGUARD (FIT-DNA) COLOGUARD (FIT-D NA) [facility] Start: 2019 Colonoscopy COLONOSCOPY [facility] Start: 2019 COLORECTAL CANCER SCREENING COLORECTAL CANCER SCREENING [facility] Start: [address] COLONOGRAPHY [facility] Start: 2019 DIABETES SCREEN [facility]CREEN [facility] Start: 2019 Diabetes Screening Diabetes Screenin g [facility] Start: 2019 FECAL OCCULT BLOOD FECAL OCCULT BLOO D [facility] Start: 2019 Prostate specific antigen measurement Prostate Cancer Screening Discussion [facility] Start: 2019 Screening for malign ant neoplasm of colon [facility] Start: 2019 SIGMOIDOSCOPY SIGMOIDOSCOPY [facility] Start: 02-11-2017 Urine microalbumin profile [facility] Start: 1993 Hepatitis B Vaccine (1 of 3 - 19+ 3-dose series) Hepatitis B Vaccine (1 of 3 - 19+ 3-dose series) [facility] Start: 1993 Pneumococcal Vaccine : 50+ (1 of 2 - PCV) Pneumococcal Vaccine: 50+ (1 of 2 - PCV) [facility] Start: 1992 Anxiety Screening Anxiety Screening [facility] Start: 1992 BP CONTROLLED (<130/80) BP CONTROLLE D (<130/80) [facility] Start: 1992 Depression Screening Depression Scre ening [facility] Start: 1992 HEPATITIS C SCREENING HEPATITIS C [facility] Start: 1992 Hepatitis C screening Hepatitis C [facility] Start: 1992 HIV SCREENING HIV SCREENING [facility] Start: 1992 HIV screening HIV Screening [facility] Start: 1980 PNEUMOCOCCAL (1 - PCV) PNEUMOCOCCAL (1 - PCV) [facility] Start: 1980 Pneumococcal vaccination [facility] Start: 1974 COVID-19 VACCINE (#1) COVID-19 VACCI NE (#1) [facility] Start: 1974 HEPATITIS B (1 of 3 - 3-dose series) HEPATITIS B (1 of 3 - 3-dose series) [facility] Start: 1974 Hepatitis B Vaccine (1 of 3 - 3-dose series) Hepatitis B Vaccine (1 of 3 - 3-dose series) [facility] Bilirubin measuremen t, urine [facility] End: 03-19-2024 Ct abdomen & pelvis w/contrast material CT ABD/PEL W IVCON Radiology Routine Localized enlarged lymph nodes 1 Occurrences starting 02/18/2023 until 03/19/2024 [facility] Work Phone: Comment on above: 1 Occurrences starti ng 02/18/2023 until 03/19/2024 Hemoglobin [Presence ] in Urine [facility] Measurement of keton es in urine using dipstick [facility] Microscopic urinalysis [facility] Patient Education [facility] Work Phone: Patient referral [facility] Work Phone: pH of Urine [facility] Specific gravity of Urine [facility] Urine blood test [facility] Urine dipstick for glucose [facility] Urine dipstick for leukocyte esterase [facility] Urine dipstick for nitrite [facility] Urine dipstick for protein [facility] Urine examination [facility] Urine microscopy: epithelial cells [facility] Urine Microscopy: wh ite cells [facility] Urobilinogen [Presen ce] in Urine [facility] Immunizations Immunization Date Immunization Notes Care Provider [facility] 12-08-2008 measles, mumps and rubella virus vaccine Chandler Arleenjovana DO Work Phone: [facility] Work Phone: 12-08-2008 poliovirus vaccine, inactivated Chandler Arleenjovana DO Work Phone: [facility] Work Phone: 02-11-2007 measles, mumps and rubella virus vaccine Chandler Arleenjovana DO Work Phone: [facility] Work Phone: 02-11-2007 tetanus toxoid, redu sathya diphtheria toxoid, and acellular pertussis vaccine, adsorbed Chandler Trevino DO Work Phone: [facility] Work Phone: Payers Date Payer Category Payer Private Health Insurance [id number] 2024 Self-pay [id number] 2024 [employer] ( and others) [id number] 2023 [employer] ( and others) [id number] 2022 Government (not [facility] or Medicaid) [facility] [id number] 2021 Unknown [id number] 1974 Unknown [id number] .[id number] Unknown [id number] 1974 Unknown [id number] .1974 Unknown [id number] .1974 Unknown [id number] .1974 Unknown [id number] 1974 Unknown [id number] [employer] ( and others) PRIME [id number] Unknown [id number] Unknown [id number] Unknown [id number] .462 Unknown [id number] .462 Social History Date Type Detail Facility Start: 11-24-2021 Tobacco smoking status Light t obacco smoker (finding) [facility]igned [facility] Start: 11-27-2022 End: 06-19-2023 Tobacco smoking status CAIS Unknown if ever smoked [facility] Start: 1975 Sex Assigned At Male [facility] Start: 01-27-2023 End: 03-01-2025 Tobacco smoking status CAIS Smokes tobacco daily [facility] Work Phone: History of tobacco use Cigarette Smoker C [facility] Work Phone: Start: 01-27-2023 End: 02-18-2023 Cigarettes smoked current (pack per day) - Reported 0.5 [facility] Work Phone: Start: 01-27-2023 Tobacco use and exposure Smokeless tobacco non-user [facility] Work Phone: Start: 01-27-2023 End: 02-18-2023 Alcohol intake Current drinker of alcohol (finding) [facility] Start: 01-27-2023 End: 02-18-2023 Tobacco use panel [facility] Work Phone: Adult Depression Screening Assessment 0 [facility] Work Phone: Start: 01-27-2023 Alcohol Comment 1/2 pint per day [facility] Start: 1975 Sex Assigned At Not on file C [facility] Start: 05-24-2021 End: 06-23-2021 Exposure to SARS-CoV-2 (event) Not sure [facility] Start: 10-02-2013 Sex Male (finding) [facility] Functional Status Date Assessment Result Facility 04-06-2022 Functional Status ID band on, Call device within reach, Bed in low position, Wheels locked [facility] 11-24-2021 Functional Status [facility] Mental Status Date Assessment Result Facility 03-01-2025 Cognitive function Level Of Cons ciousness Awake;Alert;Appropriate;Follow s Commands [facility] Work Phone: 04-06-2022 Mental Status Oriented x 4 [facility] 11-24-2021 Mental Status [facility] Clinical Notes 06-24-2021 to 03-01-2025 Note Date & Type Note Facility 03-01-2025 Discharge summary [facility] 03-01-2025 Discharge summary Note Date/Time March 01, 2025 2:24pm [facility] Medical Records Department [address] [place] [id number] Emergency Department Summary 03/01/25 MR#: [id number] Acct: [id number] Name: NITO ESTRADA Rep #:[id number] : 1975 49 From: Bennie Burnham PCP: Care Physician,No Primary Status :REG ER Location: ED HPI History of Present Illness Chief Complaint: Other, Pain/Inj PFSH PFSH Medical History DVT (deep venous thrombosis) Gout HTN (hypertension) Acute exacerbation of chronic low back pain Difficulty balancing High blood pressure Frequent headaches Back problem Seasonal allergies Alcohol abuse Home Medications ?Medication ?Instructions ?Recorded ?Last Taken ?Type desoximetasone 0.05 % topical 1 applic topical BID #10 0 grams 08/07/23 Unknown Rx cream (Topicort) triamcinolone acetonide 0.1 % 1 applic topical DAILY 0 08/07/23 Unknown History topical cream allopurinol 100 mg tablet 100 mg PO DAILY #90 tabs Unknown Rx amlodipine 10 mg tablet 10 mg PO DAILY #90 tabs 03/21 02/09 Unknown Rx cetirizine 10 mg capsule (Zyrtec) 10 mg PO DAILY #90 c aps 04/15/24 Unknown Rx cyclobenzaprine 10 mg tablet 10 mg PO TID PRN muscle s pasm #30 04/15/24 Unknown Rx tabs nebivolol 10 mg tablet See Rx Instructions .Route 0 04/15/24 Unknown Rx .COMPLEX #180 tabs rivaroxaban 20 mg tablet (Xarelto) 20 mg PO DAILY #90 tabs 04/15/24 Unknown Rx escitalopram oxalate 10 mg tablet 10 mg PO QDAY #30 ta bs 07/27/24 Unknown Rx (Lexapro) doxycycline monohydrate 100 mg 100 mg PO BID #14 CAPSU LES 02/24/25 Unknown Rx capsule rivaroxaban 15 mg (42)-20 mg (9) See Rx Instructions P O .COMPLEX 03/01/25 Unknown Rx tablets in a starter pack (Xarelto #51 tabs DVT-PE Treatment 30-Day Starter) Allergy/AdvReac Type Severity Reaction Status Date / Time No Known Allergies Allergy Verified 03/01/25 10:38 Family History Grandfather Kidney disease Liver disease Skin cancer CVA (cerebral vascular accident) Uncle COPD (chronic obstructive pulmonary disease) Mental disorder Social History Smoking Status: Current every day smoker tobacco type: cigarettes alcohol intake: current substance use type: does not use what type of physical activity do you participate in: none EXAM Physical Exam Const Vital Signs: 03/01/25 10:35 03/01/25 13:50 Temperature 97.8 F Temperature Source Temporal Pulse Rate 88 Respiratory Rate 17 Respiratory Effort Short of Breath Respiratory Pattern Tachypnea Blood Pressure 130/97 H Blood Pressure Mean 108 Pulse Ox 99 Oxygen Delivery Method Room Air [facility] Narrative Medical decision making narrative: HISTORY OF PRESENT ILLNESS: Chief complaint: Shortness of breath, leg heaviness 49-year-old male history of VTE on Xarelto, chronic back pain, gout presents concern for multiple complaints. No shortness of breath. Notes compliance withEliquis. Notes last dose was this morning. Denies bleeding diathesis. Nuys cough fever chills. Denies leg swelling. He also endorses right quad pain thatis worse when he rises from a seated position. Worse is worse and he touches his anterior leg. Also notes a nodular contracture along the palmar surface of his hand. REVIEW OF SYSTEMS: Pertinent positives: Shortness of breath, right leg pain, left hand contracture Pertinent negatives: Bleeding diathesis PHYSICAL EXAM: Nursing triage notes reviewed, Vital signs reviewed Constitutional: please see [facility] HENT: MMM Eyes: Pupils equal round and reactive to light, Extraocular muscles intact Neck: No stridor, no JVD, full neck ROM Lungs: Clear to auscultation, No wheezing or rales. No increased work of breathing, no conversational dyspnea, no accessory muscle use, no nasal flaring. No respiratory distress noted Heart: Regular rate and rhythm, No murmurs, No rubs and No gallops, 2+ distal pulses (radial, femoral, posterior tibial) in all extremities Abdomen: Soft, there is no tenderness, rigidity, rebound or guarding, no obviousperitoneal signs, no palpable pulsatile abdominal masses, no auscultated abdominal bruit : No CVAT Extremities: No edema, TTP over right quadriceps. No TTP over deep veins of theleg. Left upper extremity with obvious Dupuytren's contracture/cord with some swelling and TTP over palmar hand/palmar fascia Neuro: No new focal neurological deficits, cranial nerves II through XII intact,5/5 strength in all present extremities. Intact sensation to light touch in all present extremities, 2+ reflexes bilateral patella tendons. intact 5/5 strength with ok sign (median), intact finger abduction (ulnar) intact wrist extension (radial n). Intact sensation in the radial, ulnar, and median nerve distributions. Skin: No rash or lesions noted MEDICAL DECISION MAKING: Chief Complaint: please see HPI External records reviewed: Reviewed recent ED visit from 02/24/2025 Factors affecting care: DVT, alcohol abuse Social determinants of health: History of alcohol abuse History obtained from others: none Consults: none none MDM Narrative: Patient was initially hemodynamically stable, afebrile and nontoxic-appearing. Exam without focal cardiopulmonary abnormalities. Right lower extremity warm well-perfused. No swelling. Intact pulses. No crepitus or bullae. No joint pain or inflammation. No sign of septic arthritis, necrotizing fasciitis. Suspect he is having a quad strain. In terms of the patient's hand complaint heis likely suffering from Dupuytren's contracture. The most concerning symptom was shortness of breath in the setting of DVT. Will obtain labs images to rule out PE. I obtained a broad lab and imaging workup to further determine if the patient was suffering from a life-threatening etiology. ALL IMAGES (IF OBTAINED) HAVE BEEN PERSONALLY REVIEWED AND INTERPRETED BY MYSELF. EKG normal sinus rhythm rate of 73, normal axis, no intervals, no STEMI CBC with no leukocytosis, noted mild anemia slightly worse than prior, no thrombocytopenia High-sensitivity troponin is negative, no evidence of myocardial ischemia BNP within normal limits suggesting no heart strain BMP without significant electrolyte abnormalities, noted slight elevation in anion gap consistent with endorgan hypoperfusion however not clinically significant in this context. Noted no metabolic acidosis with a normal bicarb CT angiogram of the chest showed evidence of bilateral pulmonary emboli Patient notes he has not skipped any doses of Eliquis. Discussed risk and benefits of admission versus discharge. Offered the patient hospitalization. The patient was alert and orient x 3 and had capacity to make his own medical decision and chose for go hospitalization at this time. Given he has been compliant with Eliquis and essentially failed outpatient therapy I decided to switch his anticoagulant from Eliquis to Xarelto. First dose given here 30-day starter pack given along with a prescription coupon for Xarelto. Strict return precautions were discussed. Prompt follow-up with PCP recommended. Gave outpatient hand follow-up for concern for Dupuytren's contracture. The patient and/or family, caregivers express understanding. The patient and/orfamily, caregivers agrees with the plan. Shared decision making: I will have a discussion with the patient and or visitors regarding risk/benefits of further testing or admission. They will be made aware of of the risk/benefits inherent in this decision they will be given the opportunity to voice understanding. Total critical care time today provided was at least 0 minutes. This excludes separately billable procedures. Critical care time (if documented) is secondary to the patient having high probability of clinically significant/life threatening deterioration in the patient's condition which required my urgent intervention. Impression: 1. Shortness of breath 2. Right quadricep strain 3. Dupuytren's contracture 4. Pulmonary embolism Dispo: Discharge home This note was generated with [employer] dictation software. It may contain incorrectwords, spelling, and punctuation that were not noted in review of the chart prior to signing. Lab Data Labs: Laboratory Results - last 24 hr 03/01/25 11:39 WBC 4.9 RBC 2.79 L Hgb 9.5 L Hct 28.1 L MCV 100.7 H MCH 34.1 H MCHC 33.8 RDW Std Deviation 55.5 H RDW Coeff of Rudy 14.9 H Plt Count 169 MPV 9.1 Immature Gran % (Auto) 0.400 Neut % (Auto) 79.3 H Lymph % (Auto) 10.9 L Wood % (Auto) 7.8 Eos % (Auto) 1.0 Baso % (Auto) 0.6 Absolute Neuts (auto) 3.9 Absolute Lymphs (auto) 0.53 L Nucleated RBC % 0 Sodium 142 Potassium 3.3 Chloride 101 Carbon Dioxide 22.8 Anion Gap 18 H BUN 14 Creatinine 1.07 Estim Creat Clear Calc 87.43 Est GFR (MDRD) Non-Af 85 BUN/Creatinine Ratio 13.0 Glucose 82 Calcium 8.5 Troponin T High Sens 11 NT pro BNP II 74 Radiography Diagnostic Testing: Clinical Impression(s) from Imaging Studies Chest CTA 03/01/25 11:21 IMPRESSION: Bilateral pulmonary emboli. Hepatic steatosis. Critical results were communicated to Dr. Gibson at 12:50 p.m.. Reading Location: [facility] Discharge Plan Triage Chief Complaint: Other, Pain/Inj ED Provider: Bennie Gibson Dx/Rx/DC Orders Instructions: Understanding Dupuytren Contracture, Embolism Pulmonary Dc Prescriptions: New Xarelto DVT-PE Treat 30d Start 15 mg (42)- 20 mg (9) tablets,dose pack See Rx Instructions .ROUTE .COMPLEX Qty: 51 0RF Rx Instructions: take one-15 mg tablet twice daily for 21 days, then one-20 mg tablet once daily; must take with meal/food No Action triamcinolone acetonide 0.1 % cream 1 applic topical DAILY desoximetasone [Topicort] 0.05 % cream 1 applic topical BID Qty: 100 0RF allopurinol 100 mg tablet 100 mg PO DAILY Qty: 90 1RF amlodipine 10 mg tablet 10 mg PO DAILY Qty: 90 1RF Zyrtec 10 mg capsule 10 mg PO DAILY Qty: 90 1RF cyclobenzaprine 10 mg tablet 10 mg PO TID PRN (Reason: muscle spasm) Qty: 30 0RF nebivolol 10 mg tablet See Rx Instructions .ROUTE .COMPLEX Qty: 180 1RF Dose Instruction: take 1 tablet by mouth once daily Rx Instructions: take 1 tablet by mouth once daily Xarelto 20 mg tablet 20 mg PO DAILY Qty: 90 1RF Rx Instructions: must administer with evening meal doxycycline monohydrate 100 mg capsule 100 mg PO BID Qty: 14 0RF escitalopram oxalate [Lexapro] 10 mg tablet 10 mg PO QDAY Qty: 30 0RF Rx Instructions: started with 1/2 tablet for first 10-14 days Stand Alone Forms: ED Work / School Excuse Primary Care Provider: Care Physician,No Primary Referrals: Shaheen Wilkes MD [Med Staff - [employer] Machine Helper] - Camilo Neely MD [Med Staff - Active Staff] - Activity Restrictions/Additional Instructions: Thank you for trusting us with your care today! Your labs images today were concerning for blood clots in your lung. This is treated blood thinners. Please discontinue taking Eliquis and start taking Xarelto. Please return to the emergency department if your symptoms change or worsen. Specifically develop worsening shortness of breath, chest pain if you lose consciousness. If you develop any bleeding issues. Please follow with your primary care physician for further outpatient evaluationand management. Please follow with Dr. Neely open this is hand surgery) for further evaluation of concern for Dupuytren's contracture. Print Language: Hungarian Disposition Disposition: Home, Self Care What to do if you have Problems For any increased pain, shortness of breath, bleeding, nausea or vomiting, chestpain, or any unexpected problems, contact your Primary Care Provider. Call [facility] ([phone]) or report to the closest Emergency Room. Call 911 if necessary. 03/01/25 1424 <Electronically signed by Bennie Gibson DO> Cosigner Signature (if applicable): CC: No Primary Care Physician ~ Signed [facility] Work Phone: [phone] Radiology Diagnostic study note [facility] Imaging Services [address] [place], [place] [id number] CTA Chest W/WO Contrast MR#: [id number] Acct: [id number] Name: NITO ESTRADA Rep #: [id number] : 1975 M 49 From: Volodymyr Hutchison MD PCP: Care Physician,No Primary Status: REG ER Study:CTA Chest W/WO Contrast Date of Exam: 03/01/25 Exam# [id number] Ordering Dr: Marya Gibson DO PROCEDURE: CTA CHEST W/WO CONTRAST 03/01/2025 REASON FOR EXAM: SOB HX OF DVT TECHNIQUE: CTA CHEST W/WO CONTRAST Multiplanar Sagittal and Coronal images were obtained. CONTRAST: Isovue 370 VOLUME: 100 mL One or more dose reduction techniques were used (e.g., Automated exposure control, adjustment of the mA and/or kV according to patient size, use of iterative reconstruction technique). RADIATION DOSE SUMMARY: CTDlvol: 6 mGy DLP: 217 mGycm COMPARISON: Mostly on. FINDINGS: Left thyroid subcentimeter nodule. Peripheral soft tissues are unremarkable Esophagus is normal in caliber. Hypodense liver suggestive of steatosis. No mediastinal lymphadenopathy. No pericardial effusion. No evidence of heart strain. Bilateral lower lobar, segmental, and subsegmental filling defects. The lungs are clear. CT/CTA Chest W/WO Contrast IMPRESSION: Bilateral pulmonary emboli. Hepatic steatosis. Critical results were communicated to Dr. Gibson at 12:50 p.m.. Reading Location: [facility] CC: Dr. Bennie Gibson DO; No Primary Care Physician ~ Forming Machine Tender: Signed [facility]08-08-2025 Discharge summary Author Toy Escalona [facility] Note Date/Time February 24, 2025 1:4 4pm [facility] Medical Records Department [address] [place] [address] Emergency Department Summary 02/24/25 MR#: [id number] Acct: [id number] Name: NITO ESTRADA Rep #:[id number] : 1975 49 From: Toy Escalona MD PCP: Care Physician,No Primary Status :REG ER Location: ED HPI History of Present Illness Chief Complaint: Lower Extremity Injury Informant: patient and family Narrative Narrative: 49-year-old male essentially comes in for a few days of pain in his right scrotum. He denies any urinary issues or new back pain, but he presents saying that his chronic right lower extremity pain is persistent and now is in my [scrotum]. He states he was diagnosed with a DVT months ago and placed on Eliquis, he has been on that, the edema in his right lower extremity has eventually resolved and is gone now, but the pain that he has been having for longer since before he was diagnosed which goes all the way up to his proximal thigh is persistent and unchanged and he states is a 10 out of 10 or more. He denies any pins and needle sensation. He denies any numbness distally. No bowel or bladder dysfunction. He states sometimes the leg gives out on him but that is intermittent but it feels weak. He is mostly concerned about the pain. PFSH PFSH Medical History DVT (deep venous thrombosis) Gout HTN (hypertension) Acute exacerbation of chronic low back pain Difficulty balancing High blood pressure Frequent headaches Back problem Seasonal allergies Alcohol abuse Home Medications ?Medication ?Instructions ?Recorded ?Last Taken ?Type desoximetasone 0.05 % topical 1 applic topical BID #10 0 grams 08/07/23 Unknown Rx cream (Topicort) triamcinolone acetonide 0.1 % 1 applic topical DAILY 0 08/07/23 Unknown History topical cream allopurinol 100 mg tablet 100 mg PO DAILY #90 tabs Unknown Rx amlodipine 10 mg tablet 10 mg PO DAILY #90 tabs 03/21 02/09 Unknown Rx cetirizine 10 mg capsule (Zyrtec) 10 mg PO DAILY #90 c aps 09/27/24 Unknown Rx cyclobenzaprine 10 mg tablet 10 mg PO TID PRN muscle s pasm #30 04/15/24 Unknown Rx tabs nebivolol 10 mg tablet See Rx Instructions .Route 0 04/15/24 Unknown Rx .COMPLEX #180 tabs rivaroxaban 20 mg tablet (Xarelto) 20 mg PO DAILY #90 tabs 04/15/24 Unknown Rx escitalopram oxalate 10 mg tablet 10 mg PO QDAY #30 ta bs 07/27/24 Unknown Rx (Lexapro) doxycycline monohydrate 100 mg 100 mg PO BID #14 CAPSU LES 02/24/25 Unknown Rx capsule Allergy/AdvReac Type Severity Reaction Status Date / Time No Known Allergies Allergy Verified 04/15/24 09:54 Family History Grandfather Kidney disease Liver disease Skin cancer CVA (cerebral vascular accident) Uncle COPD (chronic obstructive pulmonary disease) Mental disorder Social History Smoking Status: Current every day smoker tobacco type: cigarettes alcohol intake: current substance use type: does not use what type of physical activity do you participate in: none ROS ROS ED Constitutional Constitutional ED: Denies chills or fever(s) Cardiovascular Cardiovascular: Denies chest pain Respiratory/Chest Respiratory/Chest: Denies dyspnea Gastrointestinal Gastrointestinal: Denies abdominal pain, diarrhea, nausea or vomiting Genitourinary Genitourinary ED: Reports scrotal pain; Denies dysuria, hematuria, scrotal swelling or urinary frequency Musculoskeletal Musculoskeletal: Reports extremity pain; Denies back pain or neck pain Integumentary Denies Abrasions, rash or wounds Neurologic Neurologic: Denies paresthesias or weakness EXAM Physical Exam Const Vital Signs: 02/24/25 10:26 02/24/25 10:27 Temperature 98 F Temperature Source Temporal Pulse Rate 98 Respiratory Rate 16 Blood Pressure 139/103 H 152/109 H Blood Pressure Mean 115 123 Pulse Ox 98 Oxygen Delivery Method Room Air Positive well nourished and well developed General Appearance ED: well developed and NAD Neck full ROM and supple Resp normal respiratory effort and clear to auscultation bilaterally Cardio regular rate and regular rhythm GI normal to inspection, nondistended, normoactive bowel sounds and non-tender Narrative: Right testicle is tender laterally. Cremasterics intact. Left testicle nontender. No hernia palpable. Back/Spine normal ROM and normal to inspection Extremity normal to inspection Extremity Narrative: 2+/4 bilateral dorsalis pedis pulses easily palpable even through the patient's sock. He has an intact right femoral pulse. There is no inguinal lymphadenopathy. All compartments of the right lower extremity thigh and lower leg are intact, soft, nondistended, and there is no significant tenderness with palpation throughout them. There is no skin abnormalities. There is no palpable cords. Full range of motion of the joint without limitation or difficulty. The leg looks similar to the contralateral on the left. Neuro oriented x3, no focal motor deficits and no sensory deficits noted Sensorium / Orientation: alert Psych mental status grossly normal and thought process normal Skin no wounds Rashes: no rashes MDM MDM MDM Narrative Medical decision making narrative: This patient presents by saying that his chronic right leg pain is now going into his scrotum. Rather I think he has a separate acute scrotal issue that just started a couple days ago according to him. The chronic pain he is having in the right lower extremity could be a number of things. I did a CPK, it is a little abnormal but not high enough to qualify for rhabdomyolysis and he has no signs of RADHA/renal failure, he is a little anemic but the rest of his labs are normal there is no leukocytosis. He seems to have normal 1+ symmetric reflexes both lower extremities, there is no clonus, toes are downgoing with Babinski testing and symmetric. This could be reflex sympathetic dystrophy, complex regional pain syndrome, some type of persistent pain related to his blood clot or it could be unrelated to the DVT that he had in recent past. I do not think he needs any other emergent imaging studies of his right lower extremity nor does he require repeat ultrasound given that he has been anticoagulated and the edema associated with his DVT is resolved and he is neurovascular intact distally with strong pulses and good blood flow. Labs were reviewed, as was ultrasound images and report which I agree with. It is essentially showing a normal scrotal ultrasound. I am going to treat him as if this could be early epididymitis with a week of doxycycline. I advised him that he will need to follow-up with regards to his relatively chronic leg pain. Family spoke with me outside the room, asked if alcohol could interact with any of his medications. Other than the Tylenol with codeine that he is not taking anymore, I do not think that it will other than make it easier for him to bleed even so while he is on a apixaban. He is aware of that. Patient states he is not an alcoholic but family states that he is and has no desire to stop or discontinue/curb his alcohol use. As I discussed with him that we will need to be up to him at some point which they agree with, it is just stressful and difficult with regards to the patient being in denial. Patient has an appointment in 10 days with PCP. Lab Data Attestation: I reviewed the patient's lab results. Labs: Laboratory Results - last 24 hr 02/24/25 11:00 WBC 6.4 RBC 3.05 L Hgb 10.5 L Hct 31.1 L MCV 102.0 H MCH 34.4 H MCHC 33.8 RDW Std Deviation 54.4 H RDW Coeff of Rudy 14.6 Plt Count 206 MPV 8.7 Immature Gran % (Auto) 0.300 Neut % (Auto) 70.0 Lymph % (Auto) 11.0 L Wood % (Auto) 15.9 H Eos % (Auto) 2.0 Baso % (Auto) 0.8 Absolute Neuts (auto) 4.5 Absolute Lymphs (auto) 0.70 L Nucleated RBC % 0 Sodium 140 Potassium 3.7 Chloride 102 Carbon Dioxide 20.7 L Anion Gap 17 H BUN 10 Creatinine 0.90 Estim Creat Clear Calc 103.47 Est GFR (MDRD) Non-Af 104 BUN/Creatinine Ratio 11.1 Glucose 92 Calcium 8.3 Total Creatine Kinase 224 H Radiography Diagnostic Testing: Clinical Impression(s) from Imaging Studies Testicular Ultrasound 02/24/25 10:48 IMPRESSION: NORMAL SCROTAL ULTRASOUND WITH DOPPLER. Reading Location: [id number] Discharge Plan Triage Chief Complaint: Lower Extremity Injury ED Provider: Toy Escalona Dx/Rx/DC Orders Clinical Impression: Epididymitis, right, Alcohol abuse, Chronic pain of right lower extremity Instructions: ED Epididymitis Prescriptions: New doxycycline monohydrate 100 mg capsule 100 mg PO BID Qty: 14 0RF No Action triamcinolone acetonide 0.1 % cream 1 applic topical DAILY desoximetasone [Topicort] 0.05 % cream 1 applic topical BID Qty: 100 0RF allopurinol 100 mg tablet 100 mg PO DAILY Qty: 90 1RF amlodipine 10 mg tablet 10 mg PO DAILY Qty: 90 1RF Zyrtec 10 mg capsule 10 mg PO DAILY Qty: 90 1RF cyclobenzaprine 10 mg tablet 10 mg PO TID PRN (Reason: muscle spasm) Qty: 30 0RF nebivolol 10 mg tablet See Rx Instructions .ROUTE .COMPLEX Qty: 180 1RF Dose Instruction: take 1 tablet by mouth once daily Rx Instructions: take 1 tablet by mouth once daily Xarelto 20 mg tablet 20 mg PO DAILY Qty: 90 1RF Rx Instructions: must administer with evening meal escitalopram oxalate [Lexapro] 10 mg tablet 10 mg PO QDAY Qty: 30 0RF Rx Instructions: started with 1/2 tablet for first 10-14 days Primary Care Provider: Care Physician,No Primary Referrals: Doctor,Your [Non-Staff] - Keep Rodney appointment Print Language: Hungarian Disposition Disposition: Home, Self Care What to do if you have Problems For any increased pain, shortness of breath, bleeding, nausea or vomiting, chestpain, or any unexpected problems, contact your Primary Care Provider. Call [facility] ([phone]) or report to the closest Emergency Room. Call 911 if necessary. 02/24/25 1344 <Electronically signed by Toy Escalona MD> Cosigner Signature (if applicable): CC: No Primary Care Physician ~ Signed [facility] Work Phone: 1(317) 844-433608-08-2025 Discharge summary [facility] Medical Records Department [address] [facility] [place] [address] Emergency Department Summary 02/24/25 MR#: [id number] Acct: [id number] Name: NITO ESTRADA Rep #:[id number] : 1975 49 From: Toy Escalona MD PCP: Care Physician,No Primary Status :REG ER Location: ED HPI History of Present Illness Chief Complaint: Lower Extremity Injury Informant: patient and family Narrative Narrative: 49-year-old male essentially comes in for a few days of pain in his right scrotum. He denies any urinary issues or new back pain, but he presents saying that his chronic right lower extremity pain ispersistent and now is in my [scrotum]. He states he was diagnosed with a DVT months ago and placed on Eliquis, he has been on that, the edema in his right lower extremity has eventually resolved and is gone now, but the pain that he has been having for longer since before he was diagnosed which goes all the way up to his proximal thigh is persistent and unchanged and he states is a 10 out of 10 or more. He denies any pins and needle sensation. He denies any numbness distally. No bowel or bladder dysfunction. He states sometimes the leg gives out on him but that is intermittent but it feels weak. He is mostly concerned about the pain. PFSH PFSH Medical History DVT (deep venous thrombosis) Gout HTN (hypertension) Acute exacerbation of chronic low back pain Difficulty balancing High blood pressure Frequent headaches Back problem Seasonal allergies Alcohol abuse Home Medications ?Medication ?Instructions ?Recorded ?Last Taken ?Type desoximetasone 0.05 % topical 1 applic topical BID #10 0 grams 08/07/23 Unknown Rx cream (Topicort) triamcinolone acetonide 0.1 % 1 applic topical DAILY 0 08/07/23 Unknown History topical cream allopurinol 100 mg tablet 100 mg PO DAILY #90 tabs Unknown Rx amlodipine 10 mg tablet 10 mg PO DAILY #90 tabs 03/21 02/09 Unknown Rx cetirizine 10 mg capsule (Zyrtec) 10 mg PO DAILY #90 c aps 04/15/24 Unknown Rx cyclobenzaprine 10 mg tablet 10 mg PO TID PRN muscle s pasm #30 04/15/24 Unknown Rx tabs nebivolol 10 mg tablet See Rx Instructions .Route 0 04/15/24 Unknown Rx .COMPLEX #180 tabs rivaroxaban 20 mg tablet (Xarelto) 20 mg PO DAILY #90 tabs 04/15/24 Unknown Rx escitalopram oxalate 10 mg tablet 10 mg PO QDAY #30 ta bs 07/27/24 Unknown Rx (Lexapro) doxycycline monohydrate 100 mg 100 mg PO BID #14 CAPSU LES 02/24/25 Unknown Rx capsule Allergy/AdvReac Type Severity Reaction Status Date / Time No Known Allergies Allergy Verified 04/15/24 09:54 Family History Grandfather Kidney disease Liver disease Skin cancer CVA (cerebral vascular accident) Uncle COPD (chronic obstructive pulmonary disease) Mental disorder Social History Smoking Status: Current every day smoker tobacco type: cigarettes alcohol intake: current substance use type: does not use what type of physical activity do you participate in: none ROS ROS ED Constitutional Constitutional ED: Denies chills or fever(s) Cardiovascular Cardiovascular: Denies chest pain Respiratory/Chest Respiratory/Chest: Denies dyspnea Gastrointestinal Gastrointestinal: Denies abdominal pain, diarrhea, nausea or vomiting Genitourinary Genitourinary ED: Reports scrotal pain; Denies dysuria, hematuria, scrotal swelling or urinary frequency Musculoskeletal Musculoskeletal: Reports extremity pain; Denies back pain or neck pain Integumentary Denies Abrasions, rash or wounds Neurologic Neurologic: Denies paresthesias or weakness EXAM Physical Exam Const Vital Signs: 02/24/25 10:26 02/24/25 10:27 Temperature 98 F Temperature Source Temporal Pulse Rate 98 Respiratory Rate 16 Blood Pressure 139/103 H 152/109 H Blood Pressure Mean 115 123 Pulse Ox 98 Oxygen Delivery Method Room Air Positive well nourished and well developed General Appearance ED: well developed and NAD Neck full ROM and supple Resp normal respiratory effort and clear to auscultation bilaterally Cardio regular rate and regular rhythm GI normal to inspection, nondistended, normoactive bowel sounds and non-tender Narrative: Right testicle is tender laterally. Cremasterics intact. Left testicle nontender. No hernia palpable. Back/Spine normal ROM and normal to inspection Extremity normal to inspection Extremity Narrative: 2+/4 bilateral dorsalis pedis pulses easily palpable even through the patient's sock. He has an intact right femoral pulse. There is no inguinal lymphadenopathy. All compartments of the right lower extremity thigh and lower leg are intact, soft, nondistended, and there is no significant tenderness with palpation throughout them. There is no skin abnormalities. There is no palpable cords. Full range of motion of the joint without limitation or difficulty. The leg looks similar to the contralateral on the left. Neuro oriented x3, no focal motor deficits and no sensory deficits noted Sensorium / Orientation: alert Psych mental status grossly normal and thought process normal Skin no wounds Rashes: no rashes MDM MDM MDM Narrative Medical decision making narrative: This patient presents by saying that his chronic right leg pain is now going into his scrotum. Rather I think he has a separate acute scrotal issue that just started a couple days ago according to him. The chronic pain he is having in the right lower extremity could be a number of things. I did a CPK, it is a little abnormal but not high enough to qualify for rhabdomyolysis and he has no signs ofAKI/renal failure, he is a little anemic but the rest of his labs are normal there is no leukocytosis. He seems to have normal 1+ symmetric reflexes both lower extremities, there is no clonus, toes are downgoing with Babinski testing and symmetric. This could be reflex sympathetic dystrophy, complex regional pain syndrome, some type of persistent pain related to his blood clot or it could be unrelated to the DVT that he had in recent past. I do not think he needs any other emergent imaging studies of his right lower extremity nor does he require repeat ultrasound given that he has been anticoagulated and the edema associated with his DVT is resolved and he is neurovascular intact distally with strong pulses and good blood flow. Labs were reviewed, as was ultrasound images and report which I agree with. It is essentially showing a normal scrotal ultrasound. I am going to treat him as if this could be early epididymitis with a week of doxycycline. I advised him that he will need to follow-up with regards to his relatively chronic leg pain. Family spoke with me outside the room, asked if alcohol could interact with any of his medications. Other than the Tylenol with codeine that he is not taking anymore, I do not think that it will other than make it easier for him to bleed even so while he is on a apixaban. He is aware of that. Patient states he is not an alcoholic but family states that he is and has no desire to stop or discontinue/curb his alcohol use. As I discussed with him that we will need to be up to him at some point which they agree with, it is just stressful and difficult with regards to the patient being in denial. Patient has an appointment in 10 days with PCP. Lab Data Attestation: I reviewed the patient's lab results. Labs: Laboratory Results - last 24 hr 02/24/25 11:00 WBC 6.4 RBC 3.05 L Hgb 10.5 L Hct 31.1 L MCV 102.0 H MCH 34.4 H MCHC 33.8 RDW Std Deviation 54.4 H RDW Coeff of Rudy 14.6 Plt Count 206 MPV 8.7 Immature Gran % (Auto) 0.300 Neut % (Auto) 70.0 Lymph % (Auto) 11.0 L Wood % (Auto) 15.9 H Eos % (Auto) 2.0 Baso % (Auto) 0.8 Absolute Neuts (auto) 4.5 Absolute Lymphs (auto) 0.70 L Nucleated RBC % 0 Sodium 140 Potassium 3.7 Chloride 102 Carbon Dioxide 20.7 L Anion Gap 17 H BUN 10 Creatinine 0.90 Estim Creat Clear Calc 103.47 Est GFR (MDRD) Non-Af 104 BUN/Creatinine Ratio 11.1 Glucose 92 Calcium 8.3 Total Creatine Kinase 224 H Radiography Diagnostic Testing: Clinical Impression(s) from Imaging Studies Testicular Ultrasound 02/24/25 10:48 IMPRESSION: NORMAL SCROTAL ULTRASOUND WITH DOPPLER. Reading Location: [id number] Discharge Plan Triage Chief Complaint: Lower Extremity Injury ED Provider: Toy Escalona Dx/Rx/DC Orders Clinical Impression: Epididymitis, right, Alcohol abuse, Chronic pain of right lower extremity Instructions: ED Epididymitis Prescriptions: New doxycycline monohydrate 100 mg capsule 100 mg PO BID Qty: 14 0RF No Action triamcinolone acetonide 0.1 % cream 1 applic topical DAILY desoximetasone [Topicort] 0.05 % cream 1 applic topical BID Qty: 100 0RF allopurinol 100 mg tablet 100 mg PO DAILY Qty: 90 1RF amlodipine 10 mg tablet 10 mg PO DAILY Qty: 90 1RF Zyrtec 10 mg capsule 10 mg PO DAILY Qty: 90 1RF cyclobenzaprine 10 mg tablet 10 mg PO TID PRN (Reason: muscle spasm) Qty: 30 0RF nebivolol 10 mg tablet See Rx Instructions .ROUTE .COMPLEX Qty: 180 1RF Dose Instruction: take 1 tablet by mouth once daily Rx Instructions: take 1 tablet by mouth once daily Xarelto 20 mg tablet 20 mg PO DAILY Qty: 90 1RF Rx Instructions: must administer with evening meal escitalopram oxalate [Lexapro] 10 mg tablet 10 mg PO QDAY Qty: 30 0RF Rx Instructions: started with 1/2 tablet for first 10-14 days Primary Care Provider: Care Physician,No Primary Referrals: Doctor,Your [Non-Staff] - Keep Rodney appointment Print Language: Hungarian Disposition Disposition: Home, Self Care What to do if you have Problems For any increased pain, shortness of breath, bleeding, nausea or vomiting, chestpain, or any unexpected problems, contact your Primary Care Provider. Call [facility] ([phone]) or report tothe closest Emergency Room. Call 911 if necessary. 02/24/25 1344 Cosigner Signature (if applicable): CC: No Primary Care Physician ~ Signed [facility]08-08-2025 Radiology Diagnostic study note [facility] Imaging Services [address] [facility] [place] [address] Testicular with Arterial Flow MR#: [id number] Acct: [id number] Name: NITO ESTRADA Rep #: [id number] : 1975 M 49 From: Baron Johnson MD PCP: Care Physician,No Primary Status: REG ER Study:Testicular with Arterial Flow Date of E xam: 02/24/25 Exam# [id number] Ordering Dr: Adilene Escalona MD PROCEDURE: TESTICULAR WITH ARTERIAL FLOW 02/24/2025 REASON FOR EXAM: R TESTICULAR PAIN TECHNIQUE: TESTICULAR WITH ARTERIAL FLOW COMPARISON: None FINDINGS: RIGHT testicle: 4.8 cm x 3.1 cm x 2.2 cm Homogeneous echotexture. No intratesticular mass. Right epididymis: Unremarkable. It measures 0.8 cm x 1.3 cm x 0.6 cm. LEFT testicle: 4.2 cm x 3.1 cm x 2.6 cm Homogeneous echotexture. No intratesticular mass. Left epididymis: Unremarkable. It measures 0.8 cm 1 cm 0.8 cm. Other findings: No hydrocele or large varicocele. DOPPLER FINDINGS: Symmetric color doppler blood flow signal at both testes. Normal arterial inflow and venous outflow waveforms at both testes. US/Testicular with Arterial Flow IMPRESSION: NORMAL SCROTAL ULTRASOUND WITH DOPPLER. Reading Location: [id number] CC: Dr. Toy Escalona MD; No Primary Care Physician ~ Forming Machine Tender: Signed [facility]08-05-2025 NotePatient Outreach (INTMMN) NITO ESTRADA ([id number]) 1975 M Date Time Provider Department 02/21/25 [place] During your visit today, we recorded the following information about you: Allergies As of Date: 02/21/2025 (No Known Allergies) Date Reviewed: 03/04/2023 Reviewed by: Heather Barr, RT(R) - Fully Assessed Visit Diagnoses:Primary hypertension [I10] Medication management [Z79.899] Order(s):BASIC METABOLIC PANEL [SQBMP] Order #: [id number] FUTURE LIPID PANEL, FASTING [SQLIPB] Order #: [id number] FUTURE COMPLETE BLOOD COUNT [SQCBC] Order #: [id number] FUTURE Prescriptions as of 02/24/2025 - aspirin, enteric coated (ASPIRIN, ENTERIC COATED) 81 mg EC tablet Take 81 mg by mouth once daily. - apixaban (ELIQUIS) 5 mg tab(s) Take 1 tablet by mouth twice daily. - cetirizine (ZYRTEC) 10 mg tablet Take 1 tablet by mouth every afternoon. - apixaban (ELIQUIS) 5 mg tab(s) Take 1 tablet by mouth twice daily. - BYSTOLIC 10 mg tablet Take 10 mg by mouth once daily. - meloxicam (MOBIC) 15 mg tablet Take by mouth. - cyclobenzaprine (FLEXERIL) 10 mg tablet Take by mouth. Problem List As Of Date 02/21/2025 Noted Resolved Primary hypertension [I10] 01/27/2023 Acute deep vein thrombosis (DVT) of proximal ve*01/27/2023 Radiculopathy of lumbar region [M54.16] 01/27/2023 Chronic right-sided low back pain without sciat*01/27/2023 Encounter Status:Closed by TIM VELAZQUEZ on 02/24/25[facility] 02-20-2025 Telephone encounter Note* Telephone Encounter - Ashli Vega MA - 02/20/2025 11:04 AM EDT Patient is NOT checked in for appointment- patient not present in waiting room or gastelum at this timepatient's name was called with no response a total of 3 times by this ZAID Vega. NOT [facility]08-04-2025 Miscellaneous Notes* Telephone Encounter - Ashli Vega MA - 02/20/2025 11:04 AM EDT Patient is NOT checked in for appointment- patient not present in waiting room or gastelum at this timepatient's name was called with no response a total of 3 times by this ZAID Vega. NOT documented [facility] Telephone encounter Note * Telephone Encounter - Viridiana Thomas RN - 02/13/2025 3:13 PM EDT Answer Assessment - Initial Assessment Questions Visit scheduled with Dr. Israel for 02/20/25 at 11 am Protocols used: Information Only Call - No [id number] [facility] Work Phone: 1(880) 417-308407-28-2025 Miscellaneous Notes* Telephone Encounter - Viridiana Thomas RN - 02/13/2025 3:13 PM EDT Answer Assessment - Initial Assessment Questions Visit scheduled with Dr. Israel for 02/20/25 at 11 am Protocols used: Information Only Call - No [id number] documented in this encounterBl[facility] Hospital Discharge instructions Patient Education 02/06/2025 22:42:35 [facility] Senior Living Clearance You have been evaluated today for any illness or injury that may require special attention while you are in snf. It appears that your condition is stable at this time. You have been medically cleared for snf. Follow any special advice given regarding the care of any illness or injury present. Notify snf personnel if there is any worsening of your symptoms or if new symptoms appear. When you are released from snf, follow up with your own medical doctor or the clinic that you havebeen referred to. If you do not know where to go after you are released, contact us for referral information. [phone] [employer] [place] [address]. All rights reserved. This information is not intended as a substitute for professional medical care. Always follow yourhealthcare professional's instructions. 02/06/2025 22:42:31 Deep Vein Thrombosis (DVT) Deep Vein Thrombosis (DVT) Deep vein thrombosis (DVT) occurs when a blood clot (thrombus) forms in a deep vein. This happens most often in the leg. It can also happen in the arms or other parts of the body. A part of the clot called an embolus can break off and travel to the lungs. When this happens, it s called a pulmonary embolism (PE). PE is a medical emergency. It can cut off blood flow and lead to . Both DVT and PE are closely related. Together, they are often referred to by the term venous thromboembolism (VTE). Risk factors for DVT Anything that slows blood flow, injures the lining of a vein, or increases blood clotting can make you more prone to having DVT. This includes the following: Long periods without movement (such as when sitting for many hours at a time or when recovering from major surgery or illness) Estrogen (female hormone) therapy, such as hormone replacement therapy (HRT) or control pills Fractured hip or leg Major surgery or joint replacement Major trauma or spinal cord injury Cancer Family history Excess weight or obesity Smoking Older age Symptoms DVT does not always cause symptoms. When symptoms do occur, they may appear around the site of the DVT, such as in the leg. Possible symptoms include: Swelling Pain Warmth Redness Tenderness Home care You were likely prescribed blood thinners (anticoagulants). They may be given as pills (oral) or shots (injections). Follow all instructions when using these medicines. Note: Don't take blood thinners with other medicines, herbal remedies, or supplements without talking to your provider first. Certain medicines or products can affect how blood thinners work. Follow your provider s instructions about activity and rest. If support or compression stockings are prescribed, wear them as directed. These may help improve blood flow in the legs. When sitting or lying down, move your ankles, toes and knees often. This may also help improve blood flow in the legs. Follow-up care Follow up with your healthcare provider, or as advised. If imaging tests were done, they may need further review by a doctor. You will be told of any new findings that may affect your care. When to seek medical advice Call your healthcare provider right away if any of these occur: New or increased swelling, pain, tenderness, warmth, or redness, in the leg, arm, or other area Blood in the urine Bleeding with bowel movements Call 911 Call 911 if any of these occur: Bleeding from the nose, gums, a cut, or vagina Heavy or uncontrolled bleeding Trouble breathing Chest pain or discomfort that worsens with deep breathing or coughing Coughing (may cough up blood) Fast heartbeat Sweating Anxiety Lightheadedness, dizziness, or fainting [phone] [employer]. [address] [place] [address]. All rights reserved. This information is not intended as a substitute for professional medical care. Always follow yourhealthcare professional's instructions. Follow Up Care 02/06/2025 22:41:22 With:VIANEY RODRIGUEZ MD Address: [address] [place] [phone] When:2-4 days [facility] 07-21-2025 Emergency department Discharge summary Discharge Instructions Thank you for allowing [facility] to assist you with your healthcare needs. The following is importantdischarge information regarding your hospital visit. Diagnosis from Today's Visit DVT of lower limb, acute What to Do Next Instructions from Your Care Team No qualifying data available. Post Acute Orders No qualifying data available. You Need to Schedule the Following Appointments Follow Up with VIANEY RODRIGUEZ MD When:Within 2-4 days Where:[place] [address]- [phone] Allergies NKA Medications Please ask your primary doctor or pharmacist before taking any other medication not listed, including over the counter drugs, herbal medications, vitamins and or supplements as they may interact withyour home medications. What How Much When Instructions Last Dose Unchanged apixaban (Eliquis Starter Pack for Treatment ofDVT and PE 5 mg oral tablet) [10mg BID x 7days-then 5mg BID] by mouth Two (2) times a day Duration: 30 Days Unchanged cyclobenzaprine (cyclobenzaprine 10 mg oral tablet) 1 tab(s) by mouth Three (3) times a day Duration: 7 Days Unchanged escitalopram (escitalopram 10 mg oral tablet) 1 tab(s) by mouth Once a day Unchanged lidocaine topical (lidocaine 5% topical patch) 1 patch(es) Topical Every day Duration: 10 Days Unchanged nebivolol (Bystolic 10 mg oral tablet) 1 tab(s) by mouth Once a day Please take this list to your next doctor s visit. Bring all medications you take, including over the counter medications, herbals and other supplements with you to your doctor s visit. Patients and families are reminded to discard old lists and to update any records with all medication providers or retail pharmacies. Education Materials Senior Living Clearance You have been evaluated today for any illness or injury that may require special attention while you are in snf. It appears that your condition is stable at this time. You have been medically cleared for snf. Follow any special advice given regarding the care of any illness or injury present. Notify snf personnel if there is any worsening of your symptoms or if new symptoms appear. When you are released from snf, follow up with your own medical doctor or the clinic that you havebeen referred to. If you do not know where to go after you are released, contact us for referral information. [phone] [employer]. [address] [place] [address], [place] [address]. All rights reserved. This information is not intended as a substitute for professional medical care. Always follow yourhealthcare professional's instructions. Deep Vein Thrombosis (DVT) Deep vein thrombosis (DVT) occurs when a blood clot (thrombus) forms in a deep vein. This happens most often in the leg. It can also happen in the arms or other parts of the body. A part of the clot called an embolus can break off and travel to the lungs. When this happens, it s called a pulmonary embolism (PE). PE is a medical emergency. It can cut off blood flow and lead to . Both DVT and PE are closely related. Together, they are often referred to by the term venous thromboembolism (VTE). Risk factors for DVT Anything that slows blood flow, injures the lining of a vein, or increases blood clotting can make you more prone to having DVT. This includes the following: Long periods without movement (such as when sitting for many hours at a time or when recovering from major surgery or illness) Estrogen (female hormone) therapy, such as hormone replacement therapy (HRT) or control pills Fractured hip or leg Major surgery or joint replacement Major trauma or spinal cord injury Cancer Family history Excess weight or obesity Smoking Older age Symptoms DVT does not always cause symptoms. When symptoms do occur, they may appear around the site of the DVT, such as in the leg. Possible symptoms include: Swelling Pain Warmth Redness Tenderness Home care You were likely prescribed blood thinners (anticoagulants). They may be given as pills (oral) or shots (injections). Follow all instructions when using these medicines. Note: Don't take blood thinners with other medicines, herbal remedies, or supplements without talking to your provider first. Certain medicines or products can affect how blood thinners work. Follow your provider s instructions about activity and rest. If support or compression stockings are prescribed, wear them as directed. These may help improve blood flow in the legs. When sitting or lying down, move your ankles, toes and knees often. This may also help improve blood flow in the legs. Follow-up care Follow up with your healthcare provider, or as advised. If imaging tests were done, they may need further review by a doctor. You will be told of any new findings that may affect your care. When to seek medical advice Call your healthcare provider right away if any of these occur: New or increased swelling, pain, tenderness, warmth, or redness, in the leg, arm, or other area Blood in the urine Bleeding with bowel movements Call 911 Call 911 if any of these occur: Bleeding from the nose, gums, a cut, or vagina Heavy or uncontrolled bleeding Trouble breathing Chest pain or discomfort that worsens with deep breathing or coughing Coughing (may cough up blood) Fast heartbeat Sweating Anxiety Lightheadedness, dizziness, or fainting [id number] [employer]. [address] [place] [address]81. All rights reserved. This information is not intended as a substitute for professional medical care. Always follow yourhealthcare professional's instructions. Additional Information VACCINATE! IT SAVES LIVES! Members of the community who have not yet received the COVID-19 vaccine and would like to receive it can visit one of [facility] vaccine clinics. There are many vaccine clinic locations within the [facility]. For locations and available times, please visit [email or web address]/. It is important to note that some COVID mobile vaccine clinics are held outdoors and may be canceled in rainy or stormy conditions. To learn more about pediatric vaccinations (ages 5-11), we invite you to visit the [facility] webpage. https://www.[facility].org/pages/6579-Ievlp-Cilxzpatdoo-Daviolelez-Hayjv-Dog stions.htmlTo learn more about the COVID-19 vaccine, we invite you to visit the CDC website for a list of frequently asked questions. https://www.cdc.gov/coronavirus/2019-ncov/vaccines/faq.html [facility] Patient Portal Access Instructions: Stay connected with your healthcare team and access your personal medical information anytime with the [facility] Patient Portal. If you would like a full copy of your medical records please contact the [facility] Medical Records Department Thursday through Thursday between 8a.m. and 4:30p.m. Please follow the directions below to access the portal: 1.Access the email account you provided upon registration to the [facility].2.Look for an invitation email from [facility].3.Open the email and access the invitation link: Accept Invitation to [facility]4.Fill in the required beard to create your account. Sign into [email or web address] with your username and password that you created in the above steps to stay up to date. You can then view a summary of results, a summary of your visits, and the ability to download your summaries to your computer or send the information securely to a physician. Remember that your healthcare information is confidential, so carefully consider who you will allow to register on the [email or web address] Patient Portal for access to your information. You can also access the [email or web address] Patient Portal on the [employer] venkatesh. Simply click on Health Records under [employer] and then click on the Nu[employer] logo. HOW TO SAFELY DISPOSE OF PRESCRIPTION MEDICATIONS Please use one of the following methods to safely dispose of your unused medications. 1.Use a drug disposal kit: the drug disposal pouch allows you to safely discard your old and unuseddrugs. Ask your nurse to give you one when you are discharged.2.Visit a local take-back location: Many local pharmacies and police departments have programs that collect old and unwanted prescriptiondrugs. Call your local pharmacy or go to http://Brandicted/3Y4Fw4h to find one close to you.3.Make use of household items: Use cat litter or old coffee grounds to dispose medications if other options arenot available. Mix your drugs with these household products, seal them in an airtight container andthrow it into the garbage. Call [facility]: [phone] to be sure your drugs can be disposed of in this way. Some medicines may require a different approach.4.Never flush your medications down the toilet. IF YOU HAVE BEEN PRESCRIBED AN OPIOIDS FOR PAIN If you have been prescribed an opioid (such as hydrocodone, oxycodone or morphine), it is critical to understand the possible side effects and risks of opioid pain medications. Even when taken as directed, opioids can have several side effects including: Tolerance, meaning you might need to take more of a medication for the same pain relief. Nausea, vomiting and/or constipation. Sleepiness, dizziness, dry mouth, confusion, depression or itching. Physical dependence, meaning you have withdrawal symptoms when a medication is stopped ? this can develop within a few days. KNOW YOUR RESPONSIBILITIES It is important to know exactly how much and how often to take the opioid pain medications you are prescribed. Never take opioids in higher amounts or more often than prescribed. Do not combine opioids with alcohol or other drugs that cause drowsiness, such as benzodiazepines, also known as benzos,including diazepam and alprazolam, muscle relaxants or sleep aids. Never sell or share prescriptionopioids. This is illegal. Store opioids in a secure place and out of reach of others (including children, family, friends and visitors). The last page(s) of this document has been signed and retained as a CHART COPY Signatures Patient Education Materials [facility] Deep Vein Thrombosis (DVT) Medication Leaflets My discharge plan and instructions have been reviewed and explained to me and I,NITO ESTRADA understand my current condition and have read and understand these discharge instructions. I have received a written copy of the plan/instructions. If I have questions, I am aware that I should contactmy doctor. 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 Sometimes the leg pain can happen without any back pain. Sciatica happens when a spinal nerve is irritated or has pressure put on it as comes out of the spinal canal in the lower back. This most often happens when a bulge or rupture of a nearby spinal disk presses on the nerve. Sciatica can also be caused by a narrowing of the spinal canal (spinal stenosis) or spasm of the muscle in the buttocks that the sciatic nerve passes through (pyriform muscle). Sciatica is also called lumbar radiculopathy. Sciatica may begin after a sudden twisting or bending force, such as in a car accident. Or it can happen after a simple awkward movement. In either case, muscle spasm often also happens. Muscle spasmmakes the pain worse. A healthcare provider makes a diagnosis of sciatica from your symptoms and a physical exam. Unless you had an injury from a car accident or fall, you usually won t have X-rays taken at this time. This is because the nerves and disks in your back can t be seen on an X-ray. If the provider sees signsof a compressed nerve, you will need to schedule an MRI scan as an outpatient. Signs of a compressed nerve include loss of strength in a leg. Most sciatica gets better with medicine, exercise, and physical therapy. If your symptoms continue after at least 3 months of medical treatment, you may need surgery or injections to your lower back. Home care Follow these tips when caring for yourself at home: You may need to stay in bed the first few days. But as soon as possible, begin sitting up or walking. This will help you avoid problems that come from staying in bed for long periods. When in bed, try to find a position that is comfortable. A firm mattress is best. Try lying flat onyour back with pillows under your knees. You can also try lying on your side with your knees bent up toward your chest and a pillow between your knees. Avoid sitting for long periods. This puts more stress on your lower back than standing or walking. Use heat from a hot shower, hot bath, or heating pad to help ease pain. Massage can also help. You can also try using an ice pack. You can make your own ice pack by putting ice cubes in a plastic bag. Wrap the bag in a thin towel. Try both heat and cold to see which works best. Use the method that feels best for 20 minutes several times a day. You may use acetaminophen or ibuprofen to ease pain, unless another pain medicine was prescribed. Note: If you have chronic liver or kidney disease, talk with your healthcare provider before taking these medicines. Also talk with your provider if you ve had a stomach ulcer or gastrointestinal bleeding. Use safe lifting methods. Don t lift anything heavier than 15 pounds until all of the pain is gone. Follow-up care Follow up with your healthcare provider, or as advised. You may need physical therapy or additionaltests. If X-rays were taken, a radiologist will look at them. You will be told of any new findings that may affect your care. When to seek medical advice Call your healthcare provider right away if any of these occur: Pain gets worse even after taking prescribed medicine Weakness or numbness in 1 or both legs or hips Numbness in your groin or genital area You can t control your bowel or bladder Fever Redness or swelling over your back or spine [phone] [employer]. [address] [place] [address]26. All rights reserved. This information is not intended as a substitute for professional medical care. Always follow yourhealthcare professional's instructions. Follow Up Care 02/03/2025 17:28:17 With:VIANEY RODRIGUEZ MD Address: [facility] [place] [address] [phone] When:2-4 days [facility] 07-18-2025 Emergency department Discharge summary Discharge Instructions Thank you for allowing [facility] to assist you with your healthcare needs. The following is importantdischarge information regarding your hospital visit. Diagnosis from Today's Visit Sciatica What to Do Next Instructions from Your Care Team Use lidocaine patches as prescribed. He may use cyclobenzaprine as well. Follow- up back pain clinicat [phone]. It would be good idea to have your doctor test for blood clotting disorders as youseem to be getting frequent blood clots in your leg which appear to be unprovoked. Continue Eliquis. Return if worsening or concerning symptoms. No qualifying data available. Post Acute Orders No qualifying data available. You Need to Schedule the Following Appointments Follow Up with VIANEY RODRIGUEZ MD When:Within 2-4 days Where:[facility] [place] [address] [phone] Allergies NKA Medications Please ask your primary doctor or pharmacist before taking any other medication not listed, including over the counter drugs, herbal medications, vitamins and or supplements as they may interact withyour home medications. What How Much When Instructions Last Dose New cyclobenzaprine (cyclobenzaprine 10 mg oral tablet) 1 tab(s) by mouth Three (3) times a day Duration: 7 Days Printed Prescription New lidocaine topical (lidocaine 5% topical patch) 1 patch(es) Topical Every day Duration: 10 Days Printed Prescription Unchanged apixaban (Eliquis Starter Pack for Treatment of DVT and PE 5 mg oral tablet) [10mg BID x 7days-then 5mg BID] by mouth Two (2) times a day Duration: 30 Days Unchanged escitalopram (escitalopram 10 mg oral tablet) 1 tab(s) by mouth Once a day Unchanged nebivolol (Bystolic 10 mg oral tablet) 1 tab(s) by mouth Once a day Please take this list to your next doctor s visit. Bring all medications you take, including over the counter medications, herbals and other supplements with you to your doctor s visit. Patients and families are reminded to discard old lists and to update any records with all medication providers or retail pharmacies. Education Materials Sciatica Sciatica is a condition that causes pain in the lower back that spreads down into the buttock, hip,and leg. Sometimes the leg pain can happen without any back pain. Sciatica happens when a spinal nerve is irritated or has pressure put on it as comes out of the spinal canal in the lower back. This most often happens when a bulge or rupture of a nearby spinal disk presses on the nerve. Sciatica can also be caused by a narrowing of the spinal canal (spinal stenosis) or spasm of the muscle in the buttocks that the sciatic nerve passes through (pyriform muscle). Sciatica is also called lumbar radiculopathy. Sciatica may begin after a sudden twisting or bending force, such as in a car accident. Or it can happen after a simple awkward movement. In either case, muscle spasm often also happens. Muscle spasmmakes the pain worse. A healthcare provider makes a diagnosis of sciatica from your symptoms and a physical exam. Unless you had an injury from a car accident or fall, you usually won t have X-rays taken at this time. This is because the nerves and disks in your back can t be seen on an X-ray. If the provider sees signsof a compressed nerve, you will need to schedule an MRI scan as an outpatient. Signs of a compressed nerve include loss of strength in a leg. Most sciatica gets better with medicine, exercise, and physical therapy. If your symptoms continue after at least 3 months of medical treatment, you may need surgery or injections to your lower back. Home care Follow these tips when caring for yourself at home: You may need to stay in bed the first few days. But as soon as possible, begin sitting up or walking. This will help you avoid problems that come from staying in bed for long periods. When in bed, try to find a position that is comfortable. A firm mattress is best. Try lying flat onyour back with pillows under your knees. You can also try lying on your side with your knees bent up toward your chest and a pillow between your knees. Avoid sitting for long periods. This puts more stress on your lower back than standing or walking. Use heat from a hot shower, hot bath, or heating pad to help ease pain. Massage can also help. You can also try using an ice pack. You can make your own ice pack by putting ice cubes in a plastic bag. Wrap the bag in a thin towel. Try both heat and cold to see which works best. Use the method that feels best for 20 minutes several times a day. You may use acetaminophen or ibuprofen to ease pain, unless another pain medicine was prescribed. Note: If you have chronic liver or kidney disease, talk with your healthcare provider before taking these medicines. Also talk with your provider if you ve had a stomach ulcer or gastrointestinal bleeding. Use safe lifting methods. Don t lift anything heavier than 15 pounds until all of the pain is gone. Follow-up care Follow up with your healthcare provider, or as advised. You may need physical therapy or additionaltests. If X-rays were taken, a radiologist will look at them. You will be told of any new findings that may affect your care. When to seek medical advice Call your healthcare provider right away if any of these occur: Pain gets worse even after taking prescribed medicine Weakness or numbness in 1 or both legs or hips Numbness in your groin or genital area You can t control your bowel or bladder Fever Redness or swelling over your back or spine [phone] [employer]. [address] [place] [address], [place] [address]. All rights reserved. This information is not intended as a substitute for professional medical care. Always follow yourhealthcare professional's instructions. Additional Information VACCINATE! IT SAVES LIVES! Members of the community who have not yet received the COVID-19 vaccine and would like to receive it can visit one of [facility] vaccine clinics. There are many vaccine clinic locations within the [facility]. For locations and available times, please visit www.[email or web address]/. It is important to note that some COVID mobile vaccine clinics are held outdoors and may be canceled in rainy or stormy conditions. To learn more about pediatric vaccinations (ages 5-11), we invite you to visit the [facility] webpage. https://www.[facility].org/pages/[email or web address]-Afhqx-Qlwczbhkqzx-Gyxbrzahbc-Caqlb-[email or web address] stions.htmlTo learn more about the COVID-19 vaccine, we invite you to visit the CDC website for a list of frequently asked questions. https://www.cdc.gov/coronavirus/2019-ncov/vaccines/faq.html [facility] Patient Portal Access Instructions: Stay connected with your healthcare team and access your personal medical information anytime with the [facility] Patient Portal. If you would like a full copy of your medical records please contact the [facility] Medical Records Department Thursday through Thursday between 8a.m. and 4:30p.m. Please follow the directions below to access the portal: 1.Access the email account you provided upon registration to the [facility].2.Look for an invitation email from [facility].3.Open the email and access the invitation link: Accept Invitation to [facility]4.Fill in the required beard to create your account. Sign into [email or web address] with your username and password that you created in the above steps to stay up to date. You can then view a summary of results, a summary of your visits, and the ability to download your summaries to your computer or send the information securely to a physician. Remember that your healthcare information is confidential, so carefully consider who you will allow to register on the [facility] Patient Portal for access to your information. You can also access the [email or web address] Patient Portal on the [employer] venkatesh. Simply click on Health Records under [employer] and then click on the [employer] logo. HOW TO SAFELY DISPOSE OF PRESCRIPTION MEDICATIONS Please use one of the following methods to safely dispose of your unused medications. 1.Use a drug disposal kit: the drug disposal pouch allows you to safely discard your old and unuseddrugs. Ask your nurse to give you one when you are discharged.2.Visit a local take-back location: Many local pharmacies and police departments have programs that collect old and unwanted prescriptiondrugs. Call your local pharmacy or go to http://[employer]/7N3Er0n to find one close to you.3.Make use of household items: Use cat litter or old coffee grounds to dispose medications if other options arenot available. Mix your drugs with these household products, seal them in an airtight container andthrow it into the garbage. Call [facility]: [phone] to be sure your drugs can be disposed of in this way. Some medicines may require a different approach.4.Never flush your medications down the toilet. IF YOU HAVE BEEN PRESCRIBED AN OPIOIDS FOR PAIN If you have been prescribed an opioid (such as hydrocodone, oxycodone or morphine), it is critical to understand the possible side effects and risks of opioid pain medications. Even when taken as directed, opioids can have several side effects including: Tolerance, meaning you might need to take more of a medication for the same pain relief. Nausea, vomiting and/or constipation. Sleepiness, dizziness, dry mouth, confusion, depression or itching. Physical dependence, meaning you have withdrawal symptoms when a medication is stopped ? this can develop within a few days. KNOW YOUR RESPONSIBILITIES It is important to know exactly how much and how often to take the opioid pain medications you are prescribed. Never take opioids in higher amounts or more often than prescribed. Do not combine opioids with alcohol or other drugs that cause drowsiness, such as benzodiazepines, also known as benzos,including diazepam and alprazolam, muscle relaxants or sleep aids. Never sell or share prescriptionopioids. This is illegal. Store opioids in a secure place and out of reach of others (including children, family, friends and visitors). The last page(s) of this document has been signed and retained as a CHART COPY Signatures Patient Education Materials Sciatica Medication Leaflets My discharge plan and instructions have been reviewed and explained to me and INATALIE ANTHONY J understand my current condition and have read and understand these discharge instructions. I have received a written copy of the plan/instructions. If I have questions, I am aware that I should contactmy doctor. 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 Multilevel degenerative changes of the spine with varying degrees of disc height loss, osteophyte formation, facet arthropathy and neuroforaminal narrowing, greatest in the lower lumbar spine and better evaluated on recent CT L-spine. Atherosclerosis of the abdominal aorta. IMPRESSION: No acute osseous abnormality by radiograph. I have personally reviewed the images of this examination and agree with the resident's findings and interpretation. Interpreted by: Omkar Upton Preliminary Report By: Gee Rodriges Electronically signed By Omkar Upton Dictated Date: 02/03/2025 7:00:18 PM Prelim Date: 02/03/2025 7:02:21 PM Sign Date: 02/03/2025 7:03:50 PM Ordering Provider: BRANDON JONES [facility]07-18-2025 Note* Exam Date Time Procedure Performing Provider Status 02/03/25 5:54 PM XR Hip 2-3 Views Right JASPER UPTON MD; Auth (Verified) [id number] ORIGINAL EXAMINATION: XRAY VIEWS OF THE RIGHT HIP 02/03/2025 5:55 pm COMPARISON: None. HISTORY: ORDERING SYSTEM PROVIDED HISTORY: Reason for Exam: pain FINDINGS: No acute fracture or dislocation. Enthesopathy of the right iliac crest. Pelvic phleboliths. Vascular calcifications. IMPRESSION: No acute osseous findings. I have personally reviewed the images of this examination and agree with the resident's findings and interpretation. Interpreted by: Omkar Upton Preliminary Report By: Gee Rodriges Electronically signed By Omkar Upton Dictated Date: 02/03/2025 6:56:20 PM Prelim Date: 02/03/2025 6:59:33 PM Sign Date: 02/03/2025 7:04:48 PM Ordering Provider: BRANDON JONES [facility]07-11-2025 Hospital Discharge instructions Patient Education 01/27/2025 11:44:23 Understanding Deep Vein Thrombosis Understanding Deep Vein Thrombosis Deep vein thrombosis (DVT) is a condition in which a blood clot or thrombus forms in a deep vein. Ablood clot is most common in the leg, but can develop in a large vein deep inside the leg, arm, or other part of the body. Part of the clot called an embolus can separate from the vein. It may travelto the lungs and form a pulmonary embolus (PE). This can cut off the flow to a portion of the lung or to the entire lung. A PE is a medical emergency and may cause . Healthcare providers use theterm venous thromboembolism (VTE) to describe the two conditions, DVT and PE. They use the term VTEbecause the two conditions are very closely related. And, because their prevention and treatment are closely related. Over time, a blood clot can also permanently damage veins. To protect your health, a blood clot must be treated right away. How DVT develops The deep veins of the legs are located in the muscles. These help carry blood from the legs to the heart. When leg muscles contract and relax, blood is squeezed through the veins back to the heart. One-way valves inside the veins help keep the blood moving in the right direction. When blood moves too slowly or not at all, it can pool in the veins. This makes a clot more likely to form. Risk factors Anyone can develop a blood clot. The following risk factors make a blood clot more likely to happen: Being inactive for a long period, such as when you re in the hospital, or traveling by plane or car Injury to a vein from an accident, a broken bone, or surgery Having blood clots in the past Personal or family history of a blood-clotting disorder Recent surgery Cancer and certain cancer treatments Smoking Other factors can also put you at higher risk for a blood clot. They include: Age over 60 years Taking control or hormone replacement Having other vein problems Being overweight Common symptoms A blood clot does not always cause obvious symptoms. If you do have symptoms, they usually happen suddenly. They may include: Pain, especially deep in the muscle Swelling Aching or tenderness Red or warm skin Fever Call your healthcare provider if you have these symptoms. Symptoms of pulmonary embolism may include: Trouble breathing Fast heartbeat Chest pain Sweating Coughing (may cough up blood) Fainting Call 911 if you have these symptoms. If you take medicine to help prevent blood clots, you have an increased risk of bleeding. Call 911 if you have heavy or uncontrolled bleeding. Call your healthcare provider if you have other signs orsymptoms of bleeding like blood in the urine, bleeding with bowel movements, or bleeding from the nose, gums, a cut, or vagina. Diagnosing DVT Diagnosis begins with thorough questions about your symptoms and medical history along with a physical exam. Diagnostic tests include: An imaging test called a duplex ultrasound. This test uses sound waves to create pictures of veins and blood flow. Blood tests to check for clotting and other problems. If your healthcare provider thinks you may have pulmonary embolism, additional testing will be done. Treating DVT Treating a blood clot may include: Medicine to thin the blood and prevent pulmonary embolism and other complications. Staying in the hospital. This may or may not be necessary. Surgery for some people, like those who cannot take blood-thinning medicines. Preventing DVT Many people who are in the hospital are at an increased risk of developing blood clots. So, preventing blood clots is an important part of in-hospital care. The care may include getting out of bed regularly, taking medicine, or using special therapies or devices. Other factors and conditions may increase the risk of blood clots. Review your risk with your healthcare provider. 3489-3461 [employer]. [address] [place] [address], [place] [address]. All rights reserved. This information is not intended as a substitute for professional medical care. Always follow yourhealthcare professional's instructions. Follow Up Care 01/27/2025 11:09:51 With:VIANEY RODRIGUEZ MD Address: [address] [place] [address] [place] [address] [phone] When:2-4 days [facility] 07-11-2025 Note Discharge Instructions Thank you for allowing [facility] to assist you with your healthcare needs. The following is importantdischarge information regarding your hospital visit. Diagnosis from Today's Visit DVT (deep venous thrombosis) Leg pain, right What to Do Next Instructions from Your Care Team Discharge Return to Work, School, or Sports - Ordered -- 01/26/25, 02/01/25, May return to: work, 01/27/25 11:44:00 EDT Post Acute Orders No qualifying data available. You Need to Schedule the Following Appointments Follow Up with VIANEY RODRIGUEZ MD When:Within 2-4 days Where:[address] [place] [address] [phone] Allergies NKA Medications Please ask your primary doctor or pharmacist before taking any other medication not listed, including over the counter drugs, herbal medications, vitamins and or supplements as they may interact withyour home medications. What How Much When Instructions Last Dose Unchanged apixaban (Eliquis Starter Pack for Treatment ofDVT and PE 5 mg oral tablet) [10mg BID x 7days-then 5mg BID] by mouth Two (2) times a day Duration: 30 Days Unchanged escitalopram (escitalopram 10 mg oral tablet) 1 tab(s) by mouth Once a day Unchanged nebivolol (Bystolic 10 mg oral tablet) 1 tab(s) by mouth Once a day Please take this list to your next doctor s visit. Bring all medications you take, including over the counter medications, herbals and other supplements with you to your doctor s visit. Patients and families are reminded to discard old lists and to update any records with all medication providers or retail pharmacies. Education Materials Understanding Deep Vein Thrombosis Deep vein thrombosis (DVT) is a condition in which a blood clot or thrombus forms in a deep vein. Ablood clot is most common in the leg, but can develop in a large vein deep inside the leg, arm, or other part of the body. Part of the clot called an embolus can separate from the vein. It may travelto the lungs and form a pulmonary embolus (PE). This can cut off the flow to a portion of the lung or to the entire lung. A PE is a medical emergency and may cause . Healthcare providers use theterm venous thromboembolism (VTE) to describe the two conditions, DVT and PE. They use the term VTEbecause the two conditions are very closely related. And, because their prevention and treatment are closely related. Over time, a blood clot can also permanently damage veins. To protect your health, a blood clot must be treated right away. How DVT develops The deep veins of the legs are located in the muscles. These help carry blood from the legs to the heart. When leg muscles contract and relax, blood is squeezed through the veins back to the heart. One-way valves inside the veins help keep the blood moving in the right direction. When blood moves too slowly or not at all, it can pool in the veins. This makes a clot more likely to form. Risk factors Anyone can develop a blood clot. The following risk factors make a blood clot more likely to happen: Being inactive for a long period, such as when you re in the hospital, or traveling by plane or car Injury to a vein from an accident, a broken bone, or surgery Having blood clots in the past Personal or family history of a blood-clotting disorder Recent surgery Cancer and certain cancer treatments Smoking Other factors can also put you at higher risk for a blood clot. They include: Age over 60 years Taking control or hormone replacement Having other vein problems Being overweight Common symptoms A blood clot does not always cause obvious symptoms. If you do have symptoms, they usually happen suddenly. They may include: Pain, especially deep in the muscle Swelling Aching or tenderness Red or warm skin Fever Call your healthcare provider if you have these symptoms. Symptoms of pulmonary embolism may include: Trouble breathing Fast heartbeat Chest pain Sweating Coughing (may cough up blood) Fainting Call 911 if you have these symptoms. If you take medicine to help prevent blood clots, you have an increased risk of bleeding. Call 911 if you have heavy or uncontrolled bleeding. Call your healthcare provider if you have other signs orsymptoms of bleeding like blood in the urine, bleeding with bowel movements, or bleeding from the nose, gums, a cut, or vagina. Diagnosing DVT Diagnosis begins with thorough questions about your symptoms and medical history along with a physical exam. Diagnostic tests include: An imaging test called a duplex ultrasound. This test uses sound waves to create pictures of veins and blood flow. Blood tests to check for clotting and other problems. If your healthcare provider thinks you may have pulmonary embolism, additional testing will be done. Treating DVT Treating a blood clot may include: Medicine to thin the blood and prevent pulmonary embolism and other complications. Staying in the hospital. This may or may not be necessary. Surgery for some people, like those who cannot take blood-thinning medicines. Preventing DVT Many people who are in the hospital are at an increased risk of developing blood clots. So, preventing blood clots is an important part of in-hospital care. The care may include getting out of bed regularly, taking medicine, or using special therapies or devices. Other factors and conditions may increase the risk of blood clots. Review your risk with your healthcare provider. 2444-1274 [employer]. [address] [place] [address]. All rights reserved. This information is not intended as a substitute for professional medical care. Always follow yourhealthcare professional's instructions. Additional Information VACCINATE! IT SAVES LIVES! Members of the community who have not yet received the COVID-19 vaccine and would like to receive it can visit one of [facility] vaccine clinics. There are many vaccine clinic locations within the [facility]. For locations and available times, please visit www.[email or web address].[place].gov/. It is important to note that some COVID mobile vaccine clinics are held outdoors and may be canceled in rainy or stormy conditions. To learn more about pediatric vaccinations (ages 5-11), we invite you to visit the [facility] webpage. https://www.[email or web address].org/pages/3125-Xfaxr-Pbmuwicglol-Tufhwlzrpk-Cvbtn-[email or web address] stions.htmlTo learn more about the COVID-19 vaccine, we invite you to visit the CDC website for a list of frequently asked questions. https://www.cdc.gov/coronavirus/2019-ncov/vaccines/faq.html [facility] Access Instructions: Stay connected with your healthcare team and access your personal medical information anytime with the [facility] Patient [facility]. If you would like a full copy of your medical records please contact the [facility] Medical Records Department Thursday through Thursday between 8a.m. and 4:30p.m. Please follow the directions below to access the portal: 1.Access the email account you provided upon registration to the [facility].2.Look for an invitation email from [facility].3.Open the email and access the invitation link: Accept Invitation to [email or web address].Fill in the required beard to create your account. Sign into www.[email or web address] with your username and password that you created in the above steps to stay up to date. You can then view a summary of results, a summary of your visits, and the ability to download your summaries to your computer or send the information securely to a physician. Remember that your healthcare information is confidential, so carefully consider who you will allow to register on the [email or web address] Patient Portal for access to your information. You can also access the [email or web address] Patient Portal on the [employer]Haiti. Simply click on Health Records under [employer] and then click on the [employer] logo. HOW TO SAFELY DISPOSE OF PRESCRIPTION MEDICATIONS Please use one of the following methods to safely dispose of your unused medications. 1.Use a drug disposal kit: the drug disposal pouch allows you to safely discard your old and unuseddrugs. Ask your nurse to give you one when you are discharged.2.Visit a local take-back location: Many local pharmacies and police departments have programs that collect old and unwanted prescriptiondrugs. Call your local pharmacy or go to http://[employer]/6J4Sz2f to find one close to you.3.Make use of household items: Use cat litter or old coffee grounds to dispose medications if other options arenot available. Mix your drugs with these household products, seal them in an airtight container andthrow it into the garbage. Call [facility]: [phone] to be sure your drugs can be disposed of in this way. Some medicines may require a different approach.4.Never flush your medications down the toilet. IF YOU HAVE BEEN PRESCRIBED AN OPIOIDS FOR PAIN If you have been prescribed an opioid (such as hydrocodone, oxycodone or morphine), it is critical to understand the possible side effects and risks of opioid pain medications. Even when taken as directed, opioids can have several side effects including: Tolerance, meaning you might need to take more of a medication for the same pain relief. Nausea, vomiting and/or constipation. Sleepiness, dizziness, dry mouth, confusion, depression or itching. Physical dependence, meaning you have withdrawal symptoms when a medication is stopped ? this can develop within a few days. KNOW YOUR RESPONSIBILITIES It is important to know exactly how much and how often to take the opioid pain medications you are prescribed. Never take opioids in higher amounts or more often than prescribed. Do not combine opioids with alcohol or other drugs that cause drowsiness, such as benzodiazepines, also known as benzos,including diazepam and alprazolam, muscle relaxants or sleep aids. Never sell or share prescriptionopioids. This is illegal. Store opioids in a secure place and out of reach of others (including children, family, friends and visitors). The last page(s) of this document has been signed and retained as a CHART COPY Signatures Patient Education Materials Understanding Deep Vein Thrombosis Medication Leaflets My discharge plan and instructions have been reviewed and explained to me and I,NITO ESTRADA understand my current condition and have read and understand these discharge instructions. I have received a written copy of the plan/instructions. If I have questions, I am aware that I should contactmy doctor. 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: Date/Time: Relationship to Patient: Witness Name/Signature: Date/Time: [facility]25 Hospital Discharge instructions Patient Education 01/14/2025 22:57:31 Alcoholism: Getting Help Alcoholism: Getting Help Facing a problem with alcohol can be hard. Once a person decides to get help, it can be found in many places. Below you will find resources that can give you more information. They can also help you find treatment. Primary care Speak with your primary healthcare provider. Sometimes your provider can provide medicine to help you stop drinking. If not, he or she can refer you to a specialist. Professional care This kind of care can be inpatient. It means you spend a period of time in a facility. Or it can beoutpatient. This means you come and go. The facilities have medical support and can help a person detox. Most health insurance plans will cover at least some treatment. To find this kind of care, talk to your healthcare provider or a counselor. Or go to a mental health clinic and ask for information. You can also go online to Substance Abuse and Mental Health Services Administration. Alcoholics Anonymous Alcoholics Anonymous (AA) helps members get sober and stay sober. They help you build healthy patterns of living. Everyone is welcome at an AA meeting. You don't have to identify yourself. Some people find it easier to go to the first meeting with a friend. To find a meeting near you, contact Alcoholics Anonymous online at www.aa.org. The road to recovery Many people with alcoholism can give up alcohol for good. But change may not be easy or quick. Treatment is only a start. Relapses can be common. A relapse is not a sign of failure. Instead, it meanstreatment should continue. Once a person stops drinking, support is needed for them to stay sober. After care programs and groups, such as AA, are good for this kind of support. Helpful websites National [place] on Alcohol Abuse and Addiction www.niaaa.nih.gov/alcohol-health National Closplint on Alcoholism and Drug Dependence, Inc. (NCADD) www.ncadd.org Alcoholism Anonymous www.aa.org Substance Abuse and Mental Health Services Administration (SAMHSA) www.samhsa.gov/treatment 5727-[address] [employer] [place] [address]. All rights reserved. This information is not intended as a substitute for professional medical care. Always follow yourhealthcare professional's instructions. 01/14/2025 22:56:54 Head Injury (Adult) Head Injury (Adult) You have a head injury. It does not appear serious at this time. But symptoms of a more serious problem, such as a mild brain injury (concussion) or bruising or bleeding in the brain, may appear later. For this reason, you or someone caring for you will need to watch for the symptoms listed below. Once you re home, also be sure to follow any care instructions you re given. Home care Watch for the following symptoms Seek emergency medical care if you have any of these symptoms over the next hours to days: Headache Nausea or vomiting Dizziness Sensitivity to light or noise Unusual sleepiness or grogginess Trouble falling asleep Personality changes Vision changes Memory loss Confusion Trouble walking or clumsiness Loss of consciousness (even for a short time) Inability to be awakened Stiff neck Weakness or numbness in any part of the body Seizures General care If you were prescribed medicines for pain, use them as directed. Note: Don t take other medicines for pain without talking to your provider first. To help reduce swelling and pain, apply a cold source to the injured area for up to 20 minutes at atime. Do this as often as directed. Use a cold pack or bag of ice wrapped in a thin towel. Never apply a cold source directly to the skin. If you have cuts or scrapes as a result of your head injury, care for them as directed. For the next 24 hours (or longer, if instructed): oDon t drink alcohol or use sedatives or other medicines that make you sleepy. oDon t drive or operate machinery. oDon t do anything strenuous, such as heavy lifting or straining. oLimit tasks that require concentration. This includes reading, using a smartphone or computer, watching TV, and playing video games. oDon t return to sports or other activities that could result in another head injury. Follow-up care Follow up with your healthcare provider, or as directed. If imaging tests were done, they will be reviewed by a doctor. You will be told the results and any new findings that may affect your care. When to seek medical advice Call your healthcare provider right away if any of these occur: Pain doesn t get better or worsens New or increased swelling or bruising Fever of 100.4 F (38 C) or higher, or as directed by your provider Increased redness, warmth, drainage, or bleeding from the injured area Fluid drainage or bleeding from the nose or ears Any depression or bony abnormality in the injured area Persistent confusion or lethargy Bruising behind the ears or bruising around the eyes [phone] [employer]. [address] [place] [address], [place] [address]. All rights reserved. This information is not intended as a substitute for professional medical care. Always follow yourhealthcare professional's instructions. Follow Up Care 01/14/2025 21:07:51 With:VIANEY RODRIGUEZ MD Address: [address] [place] [phone] When:2-4 days [facility] 06-28-2025 Note Discharge Instructions Thank you for allowing [facility] to assist you with your healthcare needs. The following is importantdischarge information regarding your hospital visit. Diagnosis from Today's Visit Fall Head injury Leg pain What to Do Next Instructions from Your Care Team No qualifying data available. Post Acute Orders No qualifying data available. You Need to Schedule the Following Appointments Follow Up with VIANEY RODRIGUEZ MD When:Within 2-4 days Where:[place] [address] [phone] Allergies NKA Medications Please ask your primary doctor or pharmacist before taking any other medication not listed, including over the counter drugs, herbal medications, vitamins and or supplements as they may interact withyour home medications. What How Much When Why Instructions Last Dose New acetaminophen-codeine (Tylenol with Codeine #3 use acetaminophen-codeine 300 mg-30 mg tablet ) 1 tab(s) by mouth Every 6 hours as needed for as needed for pain Leg pain Duration: 3 Days Printed Prescription Unchanged apixaban (Eliquis Starter Pack for Treatment of DVT and PE 5 mg oral tablet) [10mg BID x 7days-then 5mg BID] by mouth Two (2) times a day Duration: 30 Days Unchanged escitalopram (escitalopram 10 mg oral tablet) 1 tab(s) by mouth Once a day Unchanged nebivolol (Bystolic 10 mg oral tablet) 1 tab(s) by mouth Once a day Please take this list to your next doctor s visit. Bring all medications you take, including over the counter medications, herbals and other supplements with you to your doctor s visit. Patients and families are reminded to discard old lists and to update any records with all medication providers or retail pharmacies. Education Materials Alcoholism: Getting Help Facing a problem with alcohol can be hard. Once a person decides to get help, it can be found in many places. Below you will find resources that can give you more information. They can also help you find treatment. Primary care Speak with your primary healthcare provider. Sometimes your provider can provide medicine to help you stop drinking. If not, he or she can refer you to a specialist. Professional care This kind of care can be inpatient. It means you spend a period of time in a facility. Or it can beoutpatient. This means you come and go. The facilities have medical support and can help a person detox. Most health insurance plans will cover at least some treatment. To find this kind of care, talk to your healthcare provider or a counselor. Or go to a mental health clinic and ask for information. You can also go online to Substance Abuse and Mental Health Services Administration. Alcoholics Anonymous Alcoholics Anonymous (AA) helps members get sober and stay sober. They help you build healthy patterns of living. Everyone is welcome at an AA meeting. You don't have to identify yourself. Some people find it easier to go to the first meeting with a friend. To find a meeting near you, contact Alcoholics Anonymous online at www.aa.org. The road to recovery Many people with alcoholism can give up alcohol for good. But change may not be easy or quick. Treatment is only a start. Relapses can be common. A relapse is not a sign of failure. Instead, it meanstreatment should continue. Once a person stops drinking, support is needed for them to stay sober. After care programs and groups, such as AA, are good for this kind of support. Helpful websites National [place] on Alcohol Abuse and Addiction www.niaaa.nih.gov/alcohol-health National Closplint on Alcoholism and Drug Dependence, Inc. (NCADD) www.ncadd.org Alcoholism Anonymous www.aa.org Substance Abuse and Mental Health Services Administration (SAMHSA) www.samhsa.gov/treatment 0454-[address] [employer] [place] [address]. All rights reserved. This information is not intended as a substitute for professional medical care. Always follow yourhealthcare professional's instructions. Head Injury (Adult) You have a head injury. It does not appear serious at this time. But symptoms of a more serious problem, such as a mild brain injury (concussion) or bruising or bleeding in the brain, may appear later. For this reason, you or someone caring for you will need to watch for the symptoms listed below. Once you re home, also be sure to follow any care instructions you re given. Home care Watch for the following symptoms Seek emergency medical care if you have any of these symptoms over the next hours to days: Headache Nausea or vomiting Dizziness Sensitivity to light or noise Unusual sleepiness or grogginess Trouble falling asleep Personality changes Vision changes Memory loss Confusion Trouble walking or clumsiness Loss of consciousness (even for a short time) Inability to be awakened Stiff neck Weakness or numbness in any part of the body Seizures General care If you were prescribed medicines for pain, use them as directed. Note: Don t take other medicines for pain without talking to your provider first. To help reduce swelling and pain, apply a cold source to the injured area for up to 20 minutes at atime. Do this as often as directed. Use a cold pack or bag of ice wrapped in a thin towel. Never apply a cold source directly to the skin. If you have cuts or scrapes as a result of your head injury, care for them as directed. For the next 24 hours (or longer, if instructed): oDon t drink alcohol or use sedatives or other medicines that make you sleepy. oDon t drive or operate machinery. oDon t do anything strenuous, such as heavy lifting or straining. oLimit tasks that require concentration. This includes reading, using a smartphone or computer, watching TV, and playing video games. oDon t return to sports or other activities that could result in another head injury. Follow-up care Follow up with your healthcare provider, or as directed. If imaging tests were done, they will be reviewed by a doctor. You will be told the results and any new findings that may affect your care. When to seek medical advice Call your healthcare provider right away if any of these occur: Pain doesn t get better or worsens New or increased swelling or bruising Fever of 100.4 F (38 C) or higher, or as directed by your provider Increased redness, warmth, drainage, or bleeding from the injured area Fluid drainage or bleeding from the nose or ears Any depression or bony abnormality in the injured area Persistent confusion or lethargy Bruising behind the ears or bruising around the eyes [id number] [employer]. [address] [place] [address], [place] [address]. All rights reserved. This information is not intended as a substitute for professional medical care. Always follow yourhealthcare professional's instructions. Additional Information VACCINATE! IT SAVES LIVES! Members of the community who have not yet received the COVID-19 vaccine and would like to receive it can visit one of [facility] vaccine clinics. There are many vaccine clinic locations within the [facility]. For locations and available times, please visit [email or web address] It is important to note that some COVID mobile vaccine clinics are held outdoors and may be canceled in rainy or stormy conditions. To learn more about pediatric vaccinations (ages 5-11), we invite you to visit the [facility] webpage. [email or web address]/[email or web address] [email or web address] learn more about the COVID-19 vaccine, we invite you to visit the CDC website for a list of frequently asked questions. https://www.cdc.gov/coronavirus/2019-ncov/vaccines/faq.html [facility] Patient Portal Access Instructions: Stay connected with your healthcare team and access your personal medical information anytime with the [facility] Patient Portal. If you would like a full copy of your medical records please contact the [facility] Medical Records Department Thursday through Thursday between 8a.m. and 4:30p.m. Please follow the directions below to access the portal: 1.Access the email account you provided upon registration to the hospital.2.Look for an invitation email from [facility].3.Open the email and access the invitation link: Accept Invitation to [facility]4.Fill in the required beard to create your account. Sign into [email or web address] with your username and password that you created in the above steps to stay up to date. You can then view a summary of results, a summary of your visits, and the ability to download your summaries to your computer or send the information securely to a physician. Remember that your healthcare information is confidential, so carefully consider who you will allow to register on the [facility] Patient Portal for access to your information. You can also access the [facility] Patient Portal on the [employer] venkatesh. Simply click on Health Records under [employer] and then click on the [employer] logo. HOW TO SAFELY DISPOSE OF PRESCRIPTION MEDICATIONS Please use one of the following methods to safely dispose of your unused medications. 1.Use a drug disposal kit: the drug disposal pouch allows you to safely discard your old and unuseddrugs. Ask your nurse to give you one when you are discharged.2.Visit a local take-back location: Many local pharmacies and police departments have programs that collect old and unwanted prescriptiondrugs. Call your local pharmacy or go to http://[employer]/1X9Uh0i to find one close to you.3.Make use of household items: Use cat litter or old coffee grounds to dispose medications if other options arenot available. Mix your drugs with these household products, seal them in an airtight container andthrow it into the garbage. Call [facility]: [phone] to be sure your drugs can be disposed of in this way. Some medicines may require a different approach.4.Never flush your medications down the toilet. IF YOU HAVE BEEN PRESCRIBED AN OPIOIDS FOR PAIN If you have been prescribed an opioid (such as hydrocodone, oxycodone or morphine), it is critical to understand the possible side effects and risks of opioid pain medications. Even when taken as directed, opioids can have several side effects including: Tolerance, meaning you might need to take more of a medication for the same pain relief. Nausea, vomiting and/or constipation. Sleepiness, dizziness, dry mouth, confusion, depression or itching. Physical dependence, meaning you have withdrawal symptoms when a medication is stopped ? this can develop within a few days. KNOW YOUR RESPONSIBILITIES It is important to know exactly how much and how often to take the opioid pain medications you are prescribed. Never take opioids in higher amounts or more often than prescribed. Do not combine opioids with alcohol or other drugs that cause drowsiness, such as benzodiazepines, also known as benzos,including diazepam and alprazolam, muscle relaxants or sleep aids. Never sell or share prescriptionopioids. This is illegal. Store opioids in a secure place and out of reach of others (including children, family, friends and visitors). The last page(s) of this document has been signed and retained as a CHART COPY Signatures Patient Education Materials Alcoholism: Getting Help Head Injury (Adult) Medication Leaflets My discharge plan and instructions have been reviewed and explained to me and INATALIE ANTHONY J understand my current condition and have read and understand these discharge instructions. I have received a written copy of the plan/instructions. If I have questions, I am aware that I should contactmy doctor. 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: Date/Time: Relationship to Patient: Witness Name/Signature: Date/Time: [facility]06-28-2025 Note* Exam Date Time Procedure Performing Provider Status 01/14/25 10:[address] Head or Brain w/o Contrast HARMAN JEFFERSON Y DO; Auth (Verified) [id number] ORIGINAL EXAMINATION: CT OF THE HEAD WITHOUT CONTRAST 01/14/2025 10:32 pm TECHNIQUE: CT of the head was performed without the administration of intravenous contrast. Automated exposure control, iterative reconstruction, and/or weight based adjustment of the mA/kV was utilized to reduce the radiation dose to as low as reasonably achievable. COMPARISON: None. HISTORY: ORDERING SYSTEM PROVIDED HISTORY: Reason for Exam: pt c/o R sided leg pain. seems to be a chronic issue, states this has been going on for a while. states he did fall his afternoon. did hit his head; head trauma, moderate-severe ; Head trauma, minor, normal mental status FINDINGS: BRAIN/VENTRICLES: There is no acute intracranial hemorrhage, mass effect or midline shift. No abnormal extra-axial fluid collection. The molina-white differentiation is maintained without evidence of an acute infarct. Mild generalized parenchymal volume loss with concordant expansion of ventricular system. There is no evidence of hydrocephalus. Scattered white matter hypodensities, nonspecific but likely representing chronic microvascular angiopathy. Atherosclerosis of bilateral carotid siphons. Senescent calcification within bilateral basal ganglia. ORBITS: The visualized portion of the orbits demonstrate no acute abnormality. SINUSES: Possible chronic sinusitis of the right frontal and ethmoid sinuses. The mastoids are clear. SOFT TISSUES/SKULL: No acute abnormality of the visualized skull. Mild high posterior scalp soft tissue swelling.. IMPRESSION: No acute intracranial hemorrhage or large vessel territory infarct. Mild high posterior scalp soft tissue swelling. I have personally reviewed the images of this examination and agree with the resident's findings and interpretation. Interpreted by: Praful Jefferson DO Preliminary Report By: Christ Dove Electronically signed By Praful Jefferson DO Dictated Date: 01/14/2025 10:43:45 PM Prelim Date: 01/14/2025 10:45:49 PM Sign Date: 01/14/2025 10:48:56 PM Ordering Provider: MICHEL KIM Interpreted by: Praful Jefferson DO Preliminary Report By: Christ Dove Electronically signed By Praful Jefferson DO Dictated Date: 01/14/2025 10:43:45 PM Prelim Date: 01/14/2025 10:45:49 PM Sign Date: 01/14/2025 10:48:56 PM Ordering Provider: MICHEL [facility]06-28-2025 Note* Exam Date Time Procedure Performing Provider Status 01/14/25 10:02 PM XR Knee 1 or 2 Views Right GLADYS JEFFERSON ARNOLD Burns DO; Auth (Verified) [id number] ORIGINAL EXAMINATION: TWO XRAY VIEWS OF THE RIGHT KNEE 01/14/2025 10:02 pm COMPARISON: None. HISTORY: ORDERING SYSTEM PROVIDED HISTORY: Reason for Exam: pt c/o R sided leg pain. seems to be a chronic issue, states this has been going on for a while. states he did fall his afternoon. did hit his head fall FINDINGS: No acute fracture or dislocation. No significant degenerative changes of the knee. No significant knee joint effusion or soft tissue swelling. Vascular calcifications. IMPRESSION: No acute osseous abnormality. I have personally reviewed the images of this examination and agree with the resident's findings and interpretation. Interpreted by: Praful Jefferson DO Preliminary Report By: Christ Dove Electronically signed By Praful Jefferson DO Dictated Date: 01/14/2025 10:17:45 PM Prelim Date: 01/14/2025 10:18:27 PM Sign Date: 01/14/2025 11:04:26 PM Ordering Provider: MICHEL KIM Interpreted by: Praful Jefferson DO Preliminary Report By: Christ Dove Electronically signed By Praful Jefferson DO Dictated Date: 01/14/2025 10:17:45 PM Prelim Date: 01/14/2025 10:18:27 PM Sign Date: 01/14/2025 11:04:26 PM Ordering Provider: MICHEL [facility] [address]06-28-2025 Note* Exam Date Time Procedure Performing Provider Status 01/14/25 10:02 PM XR Chest 1 View PRAFUL JEFFERSON DO; Natalia [facility] (Verified) [id number] ORIGINAL EXAMINATION: ONE XRAY VIEW OF THE CHEST 01/14/2025 10:02 pm COMPARISON: None. HISTORY: ORDERING SYSTEM PROVIDED HISTORY: Reason for Exam: pt c/o R sided leg pain. seems to be a chronic issue, states this has been going on for a while. states he did fall his afternoon. did hit his head chest pain FINDINGS: Cardiomediastinal contour is normal. No focal consolidation or pulmonary edema. No pneumothorax or pleural effusion. No acute osseous abnormality. IMPRESSION: No acute radiographic abnormality. I have personally reviewed the images of this examination and agree with the resident's findings and interpretation. Interpreted by: Praful Jefferson DO Preliminary Report By: Christ Dove Electronically signed By Praful Jefferson DO Dictated Date: 01/14/2025 10:15:43 PM Prelim Date: 01/14/2025 10:17:28 PM Sign Date: 01/14/2025 11:03:31 PM Ordering Provider: MICHEL KIM Interpreted by: Praful Jefferson DO Preliminary Report By: Christ Dove Electronically signed By Praful Jefferson DO Dictated Date: 01/14/2025 10:15:43 PM Prelim Date: 01/14/2025 10:17:28 PM Sign Date: 01/14/2025 11:03:31 PM Ordering Provider: MICHEL [facility]06-25-2025 Hospital Discharge instructions Patient Education 01/11/2025 08:14:11 Deep Vein Thrombosis (DVT) Deep Vein Thrombosis (DVT) Deep vein thrombosis (DVT) occurs when a blood clot (thrombus) forms in a deep vein. This happens most often in the leg. It can also happen in the arms or other parts of the body. A part of the clot called an embolus can break off and travel to the lungs. When this happens, it s called a pulmonary embolism (PE). PE is a medical emergency. It can cut off blood flow and lead to . Both DVT and PE are closely related. Together, they are often referred to by the term venous thromboembolism (VTE). Risk factors for DVT Anything that slows blood flow, injures the lining of a vein, or increases blood clotting can make you more prone to having DVT. This includes the following: Long periods without movement (such as when sitting for many hours at a time or when recovering from major surgery or illness) Estrogen (female hormone) therapy, such as hormone replacement therapy (HRT) or control pills Fractured hip or leg Major surgery or joint replacement Major trauma or spinal cord injury Cancer Family history Excess weight or obesity Smoking Older age Symptoms DVT does not always cause symptoms. When symptoms do occur, they may appear around the site of the DVT, such as in the leg. Possible symptoms include: Swelling Pain Warmth Redness Tenderness Home care You were likely prescribed blood thinners (anticoagulants). They may be given as pills (oral) or shots (injections). Follow all instructions when using these medicines. Note: Don't take blood thinners with other medicines, herbal remedies, or supplements without talking to your provider first. Certain medicines or products can affect how blood thinners work. Follow your provider s instructions about activity and rest. If support or compression stockings are prescribed, wear them as directed. These may help improve blood flow in the legs. When sitting or lying down, move your ankles, toes and knees often. This may also help improve blood flow in the legs. Follow-up care Follow up with your healthcare provider, or as advised. If imaging tests were done, they may need further review by a doctor. You will be told of any new findings that may affect your care. When to seek medical advice Call your healthcare provider right away if any of these occur: New or increased swelling, pain, tenderness, warmth, or redness, in the leg, arm, or other area Blood in the urine Bleeding with bowel movements Call 911 Call 911 if any of these occur: Bleeding from the nose, gums, a cut, or vagina Heavy or uncontrolled bleeding Trouble breathing Chest pain or discomfort that worsens with deep breathing or coughing Coughing (may cough up blood) Fast heartbeat Sweating Anxiety Lightheadedness, dizziness, or fainting [id number] [employer]. [address] [place] [address], [place] [address]. All rights reserved. This information is not intended as a substitute for professional medical care. Always follow yourhealthcare professional's instructions. Follow Up Care 01/11/2025 05:19:46 With:Go to emergency room if symptoms worsen Address:Unknown When:2-4 days With:VIANEY RODRIGUEZ MD Address: [address] [place] [address] [phone] When:2-4 days [facility] Discharge Instructions Thank you for allowing [facility] to assist you with your healthcare needs. The following is importantdischarge information regarding your hospital visit. Diagnosis from Today's Visit Acute superficial venous thrombosis of lower extremity Chronic deep vein thrombosis (DVT) of femoral vein What to Do Next Instructions from Your Care Team please take your eliquis as prescribed and follow up closely with your pcp for continued monitoringand for refills of the eliquis. can elevate the extremity and monitor for any worsening swelling, pain, or if you develop skin changes or have any acute emergent concerns please return to the ED. No qualifying data available. Post Acute Orders No qualifying data available. You Need to Schedule the Following Appointments Follow Up with Go to emergency room if symptoms worsen When:Within 2-4 days Follow Up with VIANEY RODRIGUEZ MD When:Within 2-4 days Where:[address] [place] [address] [phone] Allergies NKA Medications Please ask your primary doctor or pharmacist before taking any other medication not listed, including over the counter drugs, herbal medications, vitamins and or supplements as they may interact withyour home medications. What How Much When Instructions Last Dose New apixaban (Eliquis Starter Pack for Treatment of DVT and PE 5 mg oral tablet) [10mg BID x 7days-then 5mg BID] by mouth Two (2) times a day Duration: 30 Days Printed Prescription Unchanged escitalopram (escitalopram 10 mg oral tablet) 1 tab(s) by mouth Once a day Unchanged nebivolol (Bystolic 10 mg oral tablet) 1 tab(s) by mouth Once a day Please take this list to your next doctor s visit. Bring all medications you take, including over the counter medications, herbals and other supplements with you to your doctor s visit. Patients and families are reminded to discard old lists and to update any records with all medication providers or retail pharmacies. Medication Leaflets apixaban (a PIX a ban) [place] What is the most important information I should know about apixaban? Apixaban increases your risk of severe or fatal bleeding, especially if you take certain medicines at the same time (including some gtvp-piw-wkylfyg medicines). Tell your doctor about all medicines you have recently used. Call your doctor at once if you have signs of bleeding such as: easy bruising, unusual bleeding, unexpected pain or swelling, feeling very weak or dizzy, bleeding gums, nosebleeds, heavy menstrual bleeding, blood in your urine or stools, coughing up blood or vomit that looks like coffee grounds, orany bleeding that will not stop. Apixaban can cause a very serious blood clot around your spinal cord that can lead to long-term or permanent paralysis. This type of blood clot can occur during a spinal tap or spinal anesthesia (epidural), especially if you have a genetic spinal defect, if you use a spinal catheter, if you've had spinal surgery or repeated spinal taps, or if you use other drugs that can affect blood clotting. Get emergency medical help if you have symptoms of a spinal cord blood clot such as tingling, numbness, or muscle weakness especially in your legs and feet. Do not stop taking apixaban unless your doctor tells you to. Stopping suddenly can increase your risk of blood clot or stroke. What is apixaban? Apixaban is used to lower the risk of stroke caused by a blood clot in people with a heart rhythm disorder called atrial fibrillation. Apixaban is also used after hip or knee replacement surgery to prevent a type of blood clot called deep vein thrombosis (DVT), which can lead to blood clots in the lungs (pulmonary embolism). Apixaban is also used to treat DVT or pulmonary embolism (PE), and to lower your risk of having a repeat DVT or PE. Apixaban may also be used for purposes not listed in this medication guide. What should I discuss with my healthcare provider before taking apixaban? You should not take apixaban if you are allergic to it, or if you have active bleeding from a surgery, injury, or other cause. Apixaban may cause you to bleed more easily, especially if you have a bleeding disorder that is inherited or caused by disease. Tell your doctor if you have an artificial heart valve, or if you have ever had: bleeding problems; antiphospholipid syndrome, especially if you have a triple positive antibody test; or liver or kidney disease. Apixaban can cause a very serious blood clot around your spinal cord if you undergo a spinal tap orreceive spinal anesthesia (epidural). This type of blood clot could cause long-term paralysis, and may be more likely to occur if: you have a spinal catheter in place or if a catheter has been recently removed; you have a history of spinal surgery or repeated spinal taps; you have recently had a spinal tap or epidural anesthesia; you take aspirin or other NSAIDs (nonsteroidal anti-inflammatory drugs)--ibuprofen (Advil, Motrin),naproxen (Aleve), diclofenac, indomethacin, meloxicam, and others; or you are using other medicines to treat or prevent blood clots. Taking apixaban may increase the risk of bleeding while you are or during your delivery. Tell your doctor if you are or plan to become . Do not breastfeed. How should I take apixaban? Follow all directions on your prescription label and read all medication guides or instruction sheets. Your doctor may occasionally change your dose. Use the medicine exactly as directed. You may take apixaban with or without food. If you cannot swallow a tablet whole, crush it and mix with water, apple juice, or applesauce. Swallow the mixture right away without chewing. A crushed tablet mixture may also be given through a nasogastric (NG) feeding tube. Read and carefully follow any Instructions for Use provided with your medicine. Apixaban can make it easier for you to bleed, even from a minor injury. Seek medical attention if you have bleeding that will not stop. Tell your doctor if you have a planned surgery or dental work. You may need to stop taking apixabanfor a short time. Do not stop taking apixaban unless your doctor tells you to. If you stop taking apixaban for any reason, your doctor may prescribe another medicine to prevent blood clots. Store at room temperature away from moisture and heat. What happens if I miss a dose? Take the missed dose on the same day you remember it. Take your next dose at the regular time and stay on your twice-daily schedule. Do not take two doses at one time. Get your prescription refilled before you run out of medicine completely. What happens if I overdose? Seek emergency medical attention or call the Poison Help line at . What should I avoid while taking apixaban? Avoid activities that may increase your risk of bleeding or injury. Use extra care while shaving orbrushing your teeth. What are the possible side effects of apixaban? Get emergency medical help if you have signs of an allergic reaction: hives; chest pain, wheezing, difficult breathing; feeling light-headed; swelling of your face, lips, tongue, or throat. Also seek emergency medical attention if you have symptoms of a spinal blood clot such as tingling,numbness, or muscle weakness especially in your legs and feet. Call your doctor at once if you have: easy bruising, unusual bleeding (nose, mouth, vagina, or rectum), bleeding from wounds or needle injections, any bleeding that will not stop; heavy menstrual bleeding; headache, dizziness, weakness, feeling like you might pass out; urine that looks red, pink, or brown; or black or bloody stools, coughing up blood or vomit that looks like coffee grounds. This is not a complete list of side effects and others may occur. Call your doctor for medical advice about side effects. You may report side effects to FDA at 1-326-DYE-4264. What other drugs will affect apixaban? Sometimes it is not safe to use certain medications at the same time. Some drugs can affect your blood levels of other drugs you take, which may increase side effects or make the medications less effective. Many other drugs (including some okse-ocw-kpditvb medicines) can increase your risk of bleeding or blood clots. Tell your doctor about all medicines you have recently used, especially: any other medicines to treat or prevent blood clots; a blood thinner such as heparin or warfarin (Coumadin, Jantoven); an antidepressant; or aspirin or other NSAID (nonsteroidal anti-inflammatory drug) used long term care administrator. This list is not complete and many other drugs may affect apixaban. This includes prescription and gpuq-dih-pvwdwrb medicines, vitamins, and herbal products. Not all possible drug interactions are listed here. Where can I get more information? Your pharmacist can provide more information about apixaban. Remember, keep this and all other medicines out of the reach of children, never share your medicines with others, and use this medication only for the indication prescribed. Every effort has been made to ensure that the information provided by [employer]') is accurate, up-to-date, and complete, but no guarantee is made to that effect. Drug information contained herein may be time sensitive. [employer] information has been compiled for use by healthcare practitioners and consumers in the [place] and therefore [employer] does not warrant that uses outside of the [place] are appropriate, unless specifically indicated otherwise. [employer] drug information does not endorse drugs, diagnose patients or recommend therapy. [employer] drug information isan informational resource designed to assist licensed healthcare practitioners in caring for their p atients and/or to serve consumers viewing this service as a supplement to, and not a substitute for, the expertise, skill, knowledge and judgment of healthcare practitioners. The absence of a warningfor a given drug or drug combination in no way should be construed to indicate that the drug or drug combination is safe, effective or appropriate for any given patient. [employer] does not assume any responsibility for any aspect of healthcare administered with the aid of information [employer] provides. The information contained herein is not intended to cover all possible uses, directions, precautions, warnings, drug interactions, allergic reactions, or adverse effects. If you have questions about the drugs you are taking, check with your doctor, nurse or pharmacist. Copyright 3860-9222 [employer]. Version: 6.01. Revision Date: 03/12/2021. Education Materials Deep Vein Thrombosis (DVT) Deep vein thrombosis (DVT) occurs when a blood clot (thrombus) forms in a deep vein. This happens most often in the leg. It can also happen in the arms or other parts of the body. A part of the clot called an embolus can break off and travel to the lungs. When this happens, it s called a pulmonary embolism (PE). PE is a medical emergency. It can cut off blood flow and lead to . Both DVT and PE are closely related. Together, they are often referred to by the term venous thromboembolism (VTE). Risk factors for DVT Anything that slows blood flow, injures the lining of a vein, or increases blood clotting can make you more prone to having DVT. This includes the following: Long periods without movement (such as when sitting for many hours at a time or when recovering from major surgery or illness) Estrogen (female hormone) therapy, such as hormone replacement therapy (HRT) or control pills Fractured hip or leg Major surgery or joint replacement Major trauma or spinal cord injury Cancer Family history Excess weight or obesity Smoking Older age Symptoms DVT does not always cause symptoms. When symptoms do occur, they may appear around the site of the DVT, such as in the leg. Possible symptoms include: Swelling Pain Warmth Redness Tenderness Home care You were likely prescribed blood thinners (anticoagulants). They may be given as pills (oral) or shots (injections). Follow all instructions when using these medicines. Note: Don't take blood thinners with other medicines, herbal remedies, or supplements without talking to your provider first. Certain medicines or products can affect how blood thinners work. Follow your provider s instructions about activity and rest. If support or compression stockings are prescribed, wear them as directed. These may help improve blood flow in the legs. When sitting or lying down, move your ankles, toes and knees often. This may also help improve blood flow in the legs. Follow-up care Follow up with your healthcare provider, or as advised. If imaging tests were done, they may need further review by a doctor. You will be told of any new findings that may affect your care. When to seek medical advice Call your healthcare provider right away if any of these occur: New or increased swelling, pain, tenderness, warmth, or redness, in the leg, arm, or other area Blood in the urine Bleeding with bowel movements Call 911 Call 911 if any of these occur: Bleeding from the nose, gums, a cut, or vagina Heavy or uncontrolled bleeding Trouble breathing Chest pain or discomfort that worsens with deep breathing or coughing Coughing (may cough up blood) Fast heartbeat Sweating Anxiety Lightheadedness, dizziness, or fainting [id number] [employer]. [address] [place] [address], [place] [address]. All rights reserved. This information is not intended as a substitute for professional medical care. Always follow yourhealthcare professional's instructions. Additional Information VACCINATE! IT SAVES LIVES! Members of the community who have not yet received the COVID-19 vaccine and would like to receive it can visit one of [facility] vaccine clinics. There are many vaccine clinic locations within the [facility]. For locations and available times, please visit www.[email or web address].[email or web address]/. It is important to note that some COVID mobile vaccine clinics are held outdoors and may be canceled in rainy or stormy conditions. To learn more about pediatric vaccinations (ages 5-11), we invite you to visit the [facility] webpage. [email or web address]/[email or web address] [email or web address] learn more about the COVID-19 vaccine, we invite you to visit the CDC website for a list of frequently asked questions. https://www.cdc.gov/coronavirus/2019-ncov/vaccines/faq.html [facility] Patient Portal Access Instructions: Stay connected with your healthcare team and access your personal medical information anytime with the [facility] Patient Portal. If you would like a full copy of your medical records please contact the [facility] Medical Records Department Thursday through Thursday between 8a.m. and 4:30p.m. Please follow the directions below to access the portal: 1.Access the email account you provided upon registration to the [facility].2.Look for an invitation email from [facility].3.Open the email and access the invitation link: Accept Invitation to [facility]4.Fill in the required beard to create your account. Sign into [email or web address] with your username and password that you created in the above steps to stay up to date. You can then view a summary of results, a summary of your visits, and the ability to download your summaries to your computer or send the information securely to a physician. Remember that your healthcare information is confidential, so carefully consider who you will allow to register on the [facility] Patient Portal for access to your information. You can also access the [email or web address] Patient Portal on the [employer] venkatesh. Simply click on Health Records under [employer] and then click on the [employer] logo. HOW TO SAFELY DISPOSE OF PRESCRIPTION MEDICATIONS Please use one of the following methods to safely dispose of your unused medications. 1.Use a drug disposal kit: the drug disposal pouch allows you to safely discard your old and unuseddrugs. Ask your nurse to give you one when you are discharged.2.Visit a local take-back location: Many local pharmacies and police departments have programs that collect old and unwanted prescriptiondrugs. Call your local pharmacy or go to http://[employer]/0F8Xn7v to find one close to you.3.Make use of household items: Use cat litter or old coffee grounds to dispose medications if other options arenot available. Mix your drugs with these household products, seal them in an airtight container andthrow it into the garbage. Call [facility]: [phone] to be sure your drugs can be disposed of in this way. Some medicines may require a different approach.4.Never flush your medications down the toilet. IF YOU HAVE BEEN PRESCRIBED AN OPIOIDS FOR PAIN If you have been prescribed an opioid (such as hydrocodone, oxycodone or morphine), it is critical to understand the possible side effects and risks of opioid pain medications. Even when taken as directed, opioids can have several side effects including: Tolerance, meaning you might need to take more of a medication for the same pain relief. Nausea, vomiting and/or constipation. Sleepiness, dizziness, dry mouth, confusion, depression or itching. Physical dependence, meaning you have withdrawal symptoms when a medication is stopped ? this can develop within a few days. KNOW YOUR RESPONSIBILITIES It is important to know exactly how much and how often to take the opioid pain medications you are prescribed. Never take opioids in higher amounts or more often than prescribed. Do not combine opioids with alcohol or other drugs that cause drowsiness, such as benzodiazepines, also known as benzos,including diazepam and alprazolam, muscle relaxants or sleep aids. Never sell or share prescriptionopioids. This is illegal. Store opioids in a secure place and out of reach of others (including children, family, friends and visitors). The last page(s) of this document has been signed and retained as a CHART COPY Signatures Patient Education Materials Deep Vein Thrombosis (DVT) Medication Leaflets apixaban My discharge plan and instructions have been reviewed and explained to me and INATALIE ANTHONY J understand my current condition and have read and understand these discharge instructions. I have received a written copy of the plan/instructions. If I have questions, I am aware that I should contactmy doctor. 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 DUNCAN BENAVIDES MD; Auth (Verified) [facility]08-17-2023 History of Present illness Narrative * Heather Barr RT(R) - 03/05/2023 2:00 PM EDT Radiology Service Progress Note DATE OF SERVICE: March 05, 2023 TIME: 2:48 PM PATIENT IDENTITY VERIFICATION COMPLETED USING TWO (2) STANDARD IDENTIFIERS: Name and Date of confirmed by patient verbally. FALL SCREENING: Has the patient had 2 falls in the last year or 1 fall with injury or currently using an Ambulatory Assistive Device (Walker, Cane, Wheelchair, Crutches, etc.)? No PATIENT GENDER DATA: Male PATIENT RELEVANT IMPLANT DATA REVIEWED: Yes ALLERGIES: Reviewed and unchanged CONTRAST ALLERGY: NO. EXAM: CT -CONTRAST INDUCED NEPHROPATHY RISK FACTORS: Not applicable CREATININE: No results found for: CREAT, EGFROTH, EGFRAA P.O.C.T. RESULTS: POC done: Yes, See Lab Tab March 05, 2023 TREATMENT: N/A PERIPHERAL IV DATA: Ambulatory: A peripheral IV was started in the Left antecubital site with a Angio cath: 22 gauge. RADIOLOGY DEPARTMENT: CT; Exam(s) Completed: Abdomen/Pelvis SIGNATURE: RT Wendy(Olivia) PATIENT NAME: Nito Estrada DATE: March 05, 2023 TIME: 2:48 PM documented in this encounterBl[facility] Miscellaneous Notes* Telephone Encounter - Meri Serrano LISW - 03/04/2023 11:14 AM EDT SOCIAL WORK FOLLOW UP NOTE: [facility] Date of service: March 03, 2023 Nito Estrada is being seen for a follow up social work visit. Today's visit includes: patient TOPICS ADDRESSED: SW met with pt about short-term disability paperwork and discussed needs for timeoff. SW completed paperwork and had physician review and sign. SW faxed forms and sent a copy to internal scanning. Pt reporting he would like original copy back. Original awaiting pt pickup. PLAN: Continue follow up as needed F/U APPOINTMENT: PRN Assigned SW listed in Care Team tab: No MAGALIS Ordaz-S documented in this encounterBlanchard [facility]08-03-2023 Miscellaneous Notes* Telephone Encounter - Ramona Granado LPN - 02/19/2023 4:53 PM EDT I called [facility] in [place] and confirmed that they do have Eliquis in stock. Patient is aware and will call [facility] to transfer Rx to [facility] in [place]. Ramona Granado LPN * Telephone Encounter - Jessie Diaz - 02/19/2023 3:20 PM EDT Patient states pharmacy informed him Eliquis is on backorder. He took last pill this morning. He is asking what he should do. Please advise. documented in this encounterBlanchard [facility]08-02-2023 Miscellaneous Notes* Addendum Note - Jamie Renee MD - 02/18/2023 3:40 PM EDTAddended by: JAMIE RENEE on: 02/18/2023 03:40 PM Modules accepted: Orders documented in this encounterBlanchard [facility]08-02-[facility] History of Present illness Narrative* Jamie Renee MD - 02/18/2023 1:31 PM EDT HISTORY OF PRESENT ILLNESS: Nito Estrada is a 47 year old male several weeks ago had sudden onset right leg. was at [facility], they discussed thrombectomy as well, but was not covered. CTA chest was negative for PE. On eliquis at this point. Leg feels much better, he has photos on his phone, the leg is visibly much less swollen, still residual right groin area. Father's side of family notable for blood clots. Has a cousin who had a thrombectomy of arm. 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 RECOMMENDATION/PLAN: 1. Plan indefinite anticoagulation given unprovoked nature of clot. 2. Compression stockings 3. 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 4. Will request records from [facility] 5. After review of [facility] records, think it prudent to check a CT scan abd and pelvis, called patient after visit, left VM to that effect. Will order. Written and verbal health teaching given to patient, patient verbalizes understanding and agrees with treatment plan. PAST MEDICAL HISTORY Diagnosis Date DVT (deep venous thrombosis) ([facility]) 01/13/2023 Essential hypertension Seasonal allergies PAST SURGICAL HISTORY Procedure Laterality Date NONE FAMILY HISTORY Problem Relation Age of Onset Emphysema Mother other (cholestitis) Mother Hypertension Father Diabetes Maternal Grandmother Kidney Disease Maternal Grandmother Heart Attack Maternal Grandfather Stroke Maternal Grandfather Lung Cancer Maternal Grandfather Mental illness Maternal Uncle COPD Maternal Uncle Coronary Artery Disease No Family History Hyperlipidemia No Family History Blood Disease No Family History Blood Clots No Family History Factor 5 Leiden No Family History DVT No Family History Rheumatologic disease No Family History Systemic Lupus Erythematosus No Family History Multiple Sclerosis No Family History Bipolar disorder No Family History Depression No Family History Schizophrenia No Family History Alzheimer's Disease No Family History Dementia No Family History Parkinson s Disease No Family History Tremor No Family History Essential Tremor No Family History Aneurysm No Family History Cancer No Family History Social History Tobacco Use Smoking status: Every Day Packs/day: 0.50 Years: 7.00 Total pack years: 3.50 Types: Cigarettes Smokeless tobacco: Never Vaping Use Vaping Use: Former Substances: Nicotine, Flavoring Substance Use Topics Alcohol use: Yes Comment: 1/2 pint per day Drug use: Not Currently Types: Marijuana Comment: Occasionally when on vacation ALLERGIES: ALLERGIES No Known Allergies CURRENT OUTPATIENT MEDICATIONS: aspirin, enteric coated (ASPIRIN, ENTERIC COATED) 81 mg EC tablet Take 81 mg by mouth once daily. cetirizine (ZYRTEC) 10 mg tablet Take 1 tablet by mouth every afternoon. apixaban (ELIQUIS) 5 mg tab(s) Take 1 tablet by mouth twice daily. BYSTOLIC 10 mg tablet Take 10 mg by mouth once daily. meloxicam (MOBIC) 15 mg tablet Take by mouth. (Patient not taking: Reported on 02/18/2023) cyclobenzaprine (FLEXERIL) 10 mg tablet Take by mouth. (Patient not taking: Reported on 02/18/2023) REVIEW OF SYSTEMS: GENERAL: No fever, night sweats, weight loss or malaise. All other reviewed and negative other than HPI. PHYSICAL EXAMINATION: VITAL SIGNS: BP 128/88 Pulse 114 Temp (Src) 97.7 (Temporal) Resp 14 Ht 6' 3 (1.91m) Wt 190 lb (86.2kg) SpO2 100% BMI 23.75 kg/(m^2). GENERAL APPEARANCE: Well appearing, in no acute distress, alert and oriented x3, well-hydrated, well nourished. I spent a total of 45 minutes on the date of the service which included preparing to see the patient, [id number] patient care, completing clinical documentation, obtaining and/or reviewing separately obtained history, counseling and educating the patient/family/caregiver, ordering medications, lionel ts, or procedures, independently interpreting results (not separately reported), and communicating results to the patient/family/caregiver. Electronically Signed: Jamie Renee MD February 18, 2023 1:32 PM documented in this encounterBlanchard [facility]07-14-2023 Miscellaneous Notes* Telephone Encounter - Nazia Joshua - 01/30/2023 4:52 PM EDT Spoke with pt and scheduled as directed * Telephone Encounter - Chandler Trevino DO - 01/30/2023 4:40 PM EDT Next new patient appointment with either me or Dr. Renee. Chandler Trevino DO * Telephone Encounter - Ramona Granado LPN - 01/29/2023 5:35 PM EDT Patient states surgery was denied. Also stated has family history of blood clots on his father's side of the family. Ramona Granado LPN * Telephone Encounter - Ramona Granado LPN - 01/29/2023 5:10 PM EDT Venous doppler and vascular surgery notes obtained. Patient is scheduled for venogram/thrombectomy. Will await disposition from vascular surgery prior to scheduling OV here. Ramona Granado LPN * Telephone Encounter - Colleen Israel MD - 01/29/2023 3:31 PM EDT The only records that I was able to obtain are in care everywhere from his recent ER visit * Telephone Encounter - Ramona Granado LPN - 01/29/2023 3:09 PM EDT Please obtain vascular surgery records and imaging. We will need these prior to scheduling an appointment. Ramona Granado LPN * Telephone Encounter - Humera Freitas LPN - 01/28/2023 3:19 PM EDT Vascular? Humera Freitas LPN * Telephone Encounter - Karyn Smith - 01/28/2023 3:05 PM EDT Patient being referred to Hematology: DX: Acute DVT Insurance: Merged With [facility] Referred by: Colleen Israel Please advise. documented in this encounterBlanchard [facility]09-18-2022 Hospital Discharge instructions Patient Education 04/06/2022 13:00:31 Back Care Tips Back Care Tips Caring for your back These are things you can do to prevent a recurrence of acute back pain and to reduce symptoms from chronic back pain: Maintain a healthy weight. If you are overweight, losing weight will help most types of back pain. Exercise is an important part of recovery from most types of back pain. The muscles behind and in front of the spine support the back. This means strengthening both the back muscles and the abdominalmuscles will provide better support for your spine. Swimming and brisk walking are good overall exercises to improve your fitness level. Practice safe lifting methods (below). Practice good posture when sitting, standing and walking. Avoid prolonged sitting. This puts more stress on the lower back than standing or walking. Wear quality shoes with sufficient arch support. Foot and ankle alignment can affect back symptoms.Women should avoid wearing high heels. Therapeutic massage can help relax the back muscles without stretching them. During the first 24 to 72 hours after an acute injury or flare-up of chronic back pain, apply an ice pack to the painful area for 20 minutes and then remove it for 20 minutes, over a period of 60 to 90 minutes, or several times a day. As a safety precaution, do not use a heating pad at bedtime. Sleeping on a heating pad can lead to skin beltran or tissue damage. You can alternate ice and heat therapies. Medicines Talk to your healthcare provider before using medicines, especially if you have other medical problems or are taking other medicines. You may use acetaminophen or ibuprofen to control pain, unless your healthcare provider prescribed other pain medicine. If you have chronic conditions like diabetes, liver or kidney disease, stomach ulcers, or gastrointestinal bleeding, or are taking blood thinners, talk with your healthcare provider before taking any medicines. Be careful if you are given prescription pain medicines, narcotics, or medicine for muscle spasm. They can cause drowsiness, affect your coordination, reflexes, and judgment. Do not drive or operate heavy machinery while taking these types of medicines. Take prescription pain medicine only as prescribed by your healthcare provider. Lumbar stretch Here is a simple stretching exercise that will help relax muscle spasm and keep your back more limber. If exercise makes your back pain worse, don t do it. Lie on your back with your knees bent and both feet on the ground. Slowly raise your left knee to your chest as you flatten your lower back against the floor. Hold for 5 seconds. Relax and repeat the exercise with your right knee. Do 10 of these exercises for each leg. Safe lifting method Don t bend over at the waist to lift an object off the floor. Instead, bend your knees and hips in a squat. Keep your back and head upright Hold the object close to your body, directly in front of you. Straighten your legs to lift the object. Lower the object to the floor in the reverse fashion. If you must slide something across the floor, push it. Posture tips Sitting Sit in chairs with straight backs or low-back support. Keep your knees lower than your hips, with your feet flat on the floor. When driving, sit up straight. Adjust the seat forward so you are not leaning toward the steering wheel. A small pillow or rolled towel behind your lower back may help if you are driving long distances. Standing When standing for long periods, shift most of your weight to one leg at a time. Alternate legs every few minutes. Sleeping The best way to sleep is on your side with your knees bent. Put a low pillow under your head to support your neck in a neutral spine position. Avoid thick pillows that bend your neck to one side. Puta pillow between your legs to further relax your lower back. If you sleep on your back, put pillowsunder your knees to support your legs in a slightly flexed position. Use a firm mattress. If your mattress sags, replace it, or use a 1/2-inch plywood board under the mattress to add support. Follow-up care Follow up with your healthcare provider, or as advised. If X-rays, a CT scan or an MRI scan were taken, they will be reviewed by a radiologist. You will benotified of any new findings that may affect your care. Call 911 Call 911 if any of the following occur: Trouble breathing Confusion Very drowsy Fainting or loss of consciousness Rapid or very slow heart rate Loss of bowel or bladder control When to seek medical advice Call your healthcare provider right away if any of the following occur: Pain becomes worse or spreads to your arms or legs Weakness or numbness in one or both arms or legs Numbness in the groin area [id number] [employer]. [address] [place] [address]. All rights reserved. This information is not intended as a substitute for professional medical care. Always follow yourhealthcare professional's instructions. Follow Up Care 04/06/2022 12:36:45 With:IESHA HYDE MD, [facility] Address: [address] [place] [address] [place] [address]- [phone] When:2-4 days With:RAYMOND GARCIA DO, Orthopedic, [facility] Address: [address] [place] [phone] When:2-4 days With:VIANEY RODRIGUEZ MD Address: [address] [place] [phone] When:2-4 days [facility] 09-18-2022 Note Discharge Instructions Thank you for allowing [facility] to assist you with your healthcare needs. The following is importantdischarge information regarding your hospital visit. Diagnosis from Today's Visit Back pain What to Do Next Instructions from Your Care Team Discharge Return to Work, School, or Sports (Return to Work, School, or Sports) - Ordered -- 04/06/22, 04/08/22, May return to: work, 04/06/22 13:10:00 EDT Post Acute Orders No qualifying data available. You Need to Schedule the Following Appointments Follow Up with IESHA HYDE MD, [facility]Spine When Within 2-4 days Where: [address] [place] [address] [place] [id number] [phone] Follow Up with RAYMOND [facility]ARC[facility] DO, [facility] When Within 2-4 days Where: [address] [address], [place] [id number] [phone] Follow Up with VIANEY RODRIGUEZ MD When Within 2-4 days Where: [address] [place] [address]- [phone] Allergies NKA Medications Please ask your primary doctor or pharmacist before taking any other medication not listed, including over the counter drugs, herbal medications, vitamins and or supplements as they may interact withyour home medications. What How Much When Instructions Last Dose New cyclobenzaprine (cyclobenzaprine 5 mg oral tablet) 1 tab(s) by mouth Three (3) times a day Duration: 7 Days Printed Prescription New lidocaine topical (lidocaine 5% topical patch) 1 patch(es) Topical Once a day Duration: 30 Days remove patches after 12 hours Printed Prescription New naproxen (naproxen 500 mg oral delayed release tablet) 1 tab(s) by mouth Two (2) times a day Duration: 20 Days Printed Prescription New predniSONE (predniSONE 10 mg oral tablet) 3 tab(s) by mouth Two (2) times a day Duration: 5 Days -Take 60mg (6tabs) the 1st dose. -30mg every 12 hrs. after 1st dose Printed Prescription Unchanged nebivolol (Bystolic 10 mg oral tablet) 1 tab(s) by mouth Once a day Please take this list to your next doctor s visit. Bring all medications you take, including over the counter medications, herbals and other supplements with you to your doctor s visit. Patients and families are reminded to discard old lists and to update any records with all medication providers or retail pharmacies. Medication Leaflets lidocaine topical (LYE biggs gonzalez TOP i lorna) AneCream, Bactine, Glydo, LidaMantle, Lidoderm, LidoRx, Medi-Quik [place], RadiaGuard, RectiCare, Regenecare JACKSON [place], Solarcaine Cool Aloe What is the most important information I should know about lidocaine topical? An overdose of numbing medicine can cause fatal side effects if too much of the medicine is absorbed through your skin. Do not use large amounts of lidocaine topical, or cover treated skin areas with a bandage or plastic wrap without medical advice. Keep both used and unused lidocaine skin patches out of the reach of children or pets. The amount of lidocaine in the skin patches could be harmful to a child or pet who accidentally sucks on or swallows the patch. What is lidocaine topical? Lidocaine is a local anesthetic (numbing medication). There are many brands and forms of lidocaine available. Not all brands are listed on this leaflet. Lidocaine topical (for use on the skin) is used to reduce pain or discomfort caused by skin irritations such as sunburn, insect bites, poison thad, poison oak, poison sumac, and minor cuts, scratches,or beltran. Lidocaine topical is also used to treat rectal discomfort caused by hemorrhoids. Lidocaine intradermal device can be used in minor medical procedures such as venipuncture or peripheral intravenous cannulation. Lidocaine topical may also be used for purposes not listed in this medication guide. What should I discuss with my healthcare provider before using lidocaine topical? You should not use lidocaine topical if you are allergic to any type of numbing medicine. Fatal overdoses have occurred when numbing medicines were used without the advice of a medical doctor (such as during a cosmetic procedure like laser hair removal). However, overdose has also occurred in women treated with a numbing medicine before having a mammography. Be aware that many cosmetic procedures are performed without a medical doctor present. Tell your doctor if you have ever had: a blood cell disorder called methemoglobinemia (in you or a family member); liver disease; or if you take a heart rhythm medicine. Tell your doctor if you are or . If you apply lidocaine topical to your chest, avoid areas that may come into contact with the baby's mouth. How should I use lidocaine topical? Use this medicine exactly as directed on the label, or as it has been prescribed by your doctor. Donot apply this medicine in larger amounts than recommended. Improper use of lidocaine topical may result in . Lidocaine topical comes in many different forms (gel, spray, cream, lotion, ointment, liquid, skin patch, and others). Do not take by mouth. Topical medicine is for use only on the skin. If this medicine gets in your eyes, nose, mouth, rectum, or vagina, rinse with water. Read and carefully follow any Instructions for Use provided with your medicine. Ask your doctor or pharmacist if you do not understand these instructions. Use the smallest amount of medicine needed to numb the skin or relieve pain. Your body may absorb too much of this medicine if you use too much, if you apply it over large skin areas, or if you applyheat, bandages, or plastic wrap to treated skin areas. Skin that is cut or irritated may also absorb more topical medication than healthy skin. Do not apply this medicine to swollen skin areas or deep puncture wounds. Avoid using the medicine on skin that is raw or blistered, such as a severe burn or abrasion. Do not cover treated skin unless your doctor has told you to. Lidocaine topical may be applied with your finger tips or a cotton swab. Lidocaine intradermal device is applied by a healthcare provider. Store at room temperature away from moisture and heat. Keep both used and unused lidocaine topical skin patches out of the reach of children or pets. The amount of lidocaine in the skin patches could be harmful to a child or pet who accidentally sucks onor swallows the patch. Seek emergency medical attention if this happens. What happens if I miss a dose? Since lidocaine topical is used when needed, you may not be on a dosing schedule. Skip any missed dose if it's almost time for your next dose. Do not use two doses at one time. What happens if I overdose? Seek emergency medical attention or call the Poison Help line at . An overdose of numbing medicine can cause fatal side effects if too much of the medicine is absorbed through your skinand into your blood. Overdose symptoms may include uneven heartbeats, seizure (convulsions), slowed breathing, coma, or respiratory failure (breathing stops). Lidocaine applied to the skin is not likely to cause an overdose unless you apply more than the recommended dose. What should I avoid while using lidocaine topical? Avoid touching the sticky side of a lidocaine skin patch while applying it. Avoid accidentally injuring treated skin areas while they are numb. Avoid coming into contact with very hot or very cold surfaces. What are the possible side effects of lidocaine topical? Get emergency medical help if you have signs of an allergic reaction: hives; difficulty breathing; swelling of your face, lips, tongue, or throat. Call your doctor at once if you have: severe headache or vomiting; severe burning, stinging, or irritation where the medicine was applied; swelling or redness; sudden dizziness or drowsiness after medicine is applied; confusion, problems with speech or vision, ringing in your ears; or unusual sensations of temperature. Common side effects include: mild irritation where the medication is applied; or numbness in places where the medicine is accidentally applied. This is not a complete list of side effects and others may occur. Call your doctor for medical advice about side effects. You may report side effects to FDA at 1-890-NMR-6684. What other drugs will affect lidocaine topical? Medicine used on the skin is not likely to be affected by other drugs you use. But many drugs can interact with each other. Tell each of your health care providers about all medicines you use, including prescription and kopi-uyr-nijqplc medicines, vitamins, and herbal products. Where can I get more information? Your pharmacist can provide more information about lidocaine topical. Remember, keep this and all other medicines out of the reach of children, never share your medicines with others, and use this medication only for the indication prescribed. Every effort has been made to ensure that the information provided by [employer]. [employer]') is accurate, up-to-date, and complete, but no guarantee is made to that effect. Drug information contained herein may be time sensitive. [employer] information has been compiled for use by healthcare practitioners and consumers in the [place] and therefore [employer] does not warrant that uses outside of the [place] are appropriate, unless specifically indicated otherwise. [employer] drug information does not endorse drugs, diagnose patients or recommend therapy. [employer] drug information isan informational resource designed to assist licensed healthcare practitioners in caring for their p atients and/or to serve consumers viewing this service as a supplement to, and not a substitute for, the expertise, skill, knowledge and judgment of healthcare practitioners. The absence of a warningfor a given drug or drug combination in no way should be construed to indicate that the drug or drug combination is safe, effective or appropriate for any given patient. [employer] does not assume any responsibility for any aspect of healthcare administered with the aid of information [employer] provides. The information contained herein is not intended to cover all possible uses, directions, precautions, warnings, drug interactions, allergic reactions, or adverse effects. If you have questions about the drugs you are taking, check with your doctor, nurse or pharmacist. Copyright 7804-0708 [employer]. Version: 9.02. Revision Date: 12/03/2021. naproxen (na PROX en) Aleve, Anaprox-DS, Midol Extended Relief, Naprelan 500, Naprosyn What is the most important information I should know about naproxen? Naproxen can increase your risk of fatal heart attack or stroke. Do not use this medicine just before or after heart bypass surgery (coronary artery bypass graft, or CABG). Naproxen may also cause stomach or intestinal bleeding, which can be fatal. What is naproxen? Naproxen is a nonsteroidal anti-inflammatory drug (NSAID). Naproxen is used to treat pain or inflammation caused by conditions such as arthritis, ankylosing spondylitis, tendinitis, bursitis, gout, or menstrual cramps. The delayed-release or extended-release tablets are slower-acting forms of naproxen that are used only for treating chronic conditions such as arthritis or ankylosing spondylitis. These forms of naproxen will not work fast enough to treat acute pain. Naproxen may also be used for purposes not listed in this medication guide. What should I discuss with my healthcare provider before taking naproxen? Naproxen can increase your risk of fatal heart attack or stroke, even if you don't have any risk factors. Do not use this medicine just before or after heart bypass surgery (coronary artery bypass graft, or CABG). Naproxen may also cause stomach or intestinal bleeding, which can be fatal. These conditions can occur without warning while you are using naproxen, especially in older adults. You should not use naproxen if you are allergic to it, or if you have ever had an asthma attack or severe allergic reaction after taking aspirin or an NSAID. Ask a doctor before giving naproxen to a child younger than 12 years old. Ask a doctor or pharmacist if this medicine is safe to use if you have: heart disease, high blood pressure, high cholesterol, diabetes, or if you smoke; a heart attack, stroke, or blood clot; stomach ulcers or bleeding; asthma; liver or kidney disease; fluid retention; or if you take aspirin to prevent heart attack or stroke. If you are , you should not take naproxen unless your doctor tells you to. Taking an NSAID during the last 20 weeks of can cause serious heart or kidney problems in the unborn baby and possible complications with your . It may not be safe to breastfeed while using this medicine. Ask your doctor about any risk. How should I take naproxen? Use exactly as directed on the label, or as prescribed by your doctor. Use the lowest dose that is effective in treating your condition. Shake the oral suspension (liquid) before you measure a dose. Measure a dose with the supplied measuring device (not a kitchen spoon). Take this medicine with food or milk if it upsets your stomach. Always follow directions on the medicine label about giving this medicine to a child. Naproxen doses are based on weight in children. Your child's dose needs may change if the child gains or loses weight. If you use naproxen long-term, you may need frequent medical tests. This medicine can affect the results of certain medical tests. Tell any doctor who treats you that you are using naproxen. Store at room temperature away from moisture, heat, and light. Keep the bottle tightly closed when not in use. What happens if I miss a dose? Since naproxen is used when needed, you may not be on a dosing schedule. Skip any missed dose if it's almost time for your next dose. Do not use two doses at one time. What happens if I overdose? Seek emergency medical attention or call the Poison Help line at . What should I avoid while taking naproxen? Avoid drinking alcohol. It may increase your risk of stomach bleeding. Avoid taking aspirin or other NSAIDs unless your doctor tells you to. Ask a doctor or pharmacist before using other medicines for pain, fever, swelling, or cold/flu symptoms. They may contain ingredients similar to naproxen (such as aspirin, ibuprofen, or ketoprofen). Ask your doctor before using an antacid, and use only the type your doctor recommends. Some antacids can make it harder for your body to absorb naproxen. What are the possible side effects of naproxen? Get emergency medical help if you have signs of an allergic reaction (runny or stuffy nose, wheezing or trouble breathing, hives, swelling in your face or throat) or a severe skin reaction (fever, sore throat, burning eyes, skin pain, red or purple skin rash with blistering and peeling). Stop using naproxen and seek medical treatment if you have a serious drug reaction that can affect many parts of your body. Symptoms may include skin rash, fever, swollen glands, muscle aches, severeweakness, unusual bruising, or yellowing of your skin or eyes. Get emergency medical help if you have signs of a heart attack or stroke: chest pain spreading to your jaw or shoulder, sudden numbness or weakness on one side of the body, slurred speech, leg swelling, feeling short of breath. Stop using naproxen and call your doctor at once if you have: shortness of breath (even with mild exertion); swelling or rapid weight gain; the first sign of any skin rash or blister, no matter how mild; signs of stomach bleeding--bloody or tarry stools, coughing up blood or vomit that looks like coffee grounds; liver problems--nausea, upper stomach pain, loss of appetite, dark urine, herson- colored stools, jaundice (yellowing of the skin or eyes); kidney problems--little or no urination, painful urination, swelling in your feet or ankles; or low red blood cells (anemia)--pale skin, unusual tiredness, feeling light-headed or short of breath, cold hands and feet. Common side effects may include: headache; indigestion, heartburn, stomach pain; or flu symptoms; This is not a complete list of side effects and others may occur. Call your doctor for medical advice about side effects. You may report side effects to FDA at 8-305-JFI-4790. What other drugs will affect naproxen? Ask your doctor before using naproxen if you take an antidepressant. Taking certain antidepressantswith an NSAID may cause you to bruise or bleed easily. Ask a doctor or pharmacist before using naproxen with any other medications, especially: other NSAIDs or salicylates (diflunisal, salsalate); antacids and sucralfate; cholestyramine; cyclosporine; digoxin; lithium; methotrexate; pemetrexed; probenecid; warfarin (Coumadin, Jantoven) or similar blood thinners; a diuretic or 'water pill'; or heart or blood pressure medication. This list is not complete. Other drugs may affect naproxen, including prescription and jbmn-izj-swsqxhz medicines, vitamins, and herbal products. Not all possible drug interactions are listed here. Where can I get more information? Your pharmacist can provide more information about naproxen. Remember, keep this and all other medicines out of the reach of children, never share your medicines with others, and use this medication only for the indication prescribed. Every effort has been made to ensure that the information provided by [employer]. [employer] is accurate, up-to-date, and complete, but no guarantee is made to that effect. Drug information contained herein may be time sensitive. [employer] information has been compiled for use by healthcare practitioners and consumers in the [place] and therefore [employer] does not warrant that uses outside of the [place] are appropriate, unless specifically indicated otherwise. [employer] drug information does not endorse drugs, diagnose patients or recommend therapy. [employer] drug information isan informational resource designed to assist licensed healthcare practitioners in caring for their p atients and/or to serve consumers viewing this service as a supplement to, and not a substitute for, the expertise, skill, knowledge and judgment of healthcare practitioners. The absence of a warningfor a given drug or drug combination in no way should be construed to indicate that the drug or drug combination is safe, effective or appropriate for any given patient. [employer] does not assume any responsibility for any aspect of healthcare administered with the aid of information [employer] provides. The information contained herein is not intended to cover all possible uses, directions, precautions, warnings, drug interactions, allergic reactions, or adverse effects. If you have questions about the drugs you are taking, check with your doctor, nurse or pharmacist. Copyright 7539-5840 [employer]. Version: .. Revision Date: 11/26/2021. cyclobenzaprine (theodore west) Amrix, Comfort Pac with Cyclobenzaprine, Fexmid What is the most important information I should know about cyclobenzaprine? You should not use cyclobenzaprine if you have a thyroid disorder, heart block, congestive heart failure, a heart rhythm disorder, or you have recently had a heart attack. Do not use cyclobenzaprine if you have taken an MAO inhibitor in the past 14 days, such as isocarboxazid, linezolid, phenelzine, rasagiline, selegiline, or tranylcypromine. What is cyclobenzaprine? Cyclobenzaprine is a muscle relaxant. It works by blocking nerve impulses (or pain sensations) thatare sent to your brain. Cyclobenzaprine is used together with rest and physical therapy to relieve muscle spasms caused by painful conditions such as an injury. Cyclobenzaprine may also be used for purposes not listed in this medication guide. What should I discuss with my healthcare provider before taking cyclobenzaprine? You should not use cyclobenzaprine if you are allergic to it, or if you have: a thyroid disorder; heart block, heart rhythm disorder, congestive heart failure; or if you have recently had a heart attack. Cyclobenzaprine is not approved for use by anyone younger than 15 years old. Do not use cyclobenzaprine if you have taken an MAO inhibitor in the past 14 days. A dangerous druginteraction could occur. MAO inhibitors include isocarboxazid, linezolid, phenelzine, rasagiline, selegiline, and tranylcypromine. Some medicines can interact with cyclobenzaprine and cause a serious condition called serotonin syndrome. Be sure your doctor knows if you also take stimulant medicine, opioid medicine, herbal products, or medicine for depression, mental illness, Parkinson's disease, migraine headaches, serious infections, or prevention of nausea and vomiting. Ask your doctor before making any changes in how or when you take your medications. Tell your doctor if you have ever had: liver disease; glaucoma; enlarged prostate; or problems with urination. It is not known whether this medicine will harm an unborn baby. Tell your doctor if you are or plan to become . It may not be safe to breast-feed while using this medicine. Ask your doctor about any risk. Older adults may be more sensitive to the effects of this medicine. How should I take cyclobenzaprine? Follow all directions on your prescription label and read all medication guides or instruction sheets. Your doctor may occasionally change your dose. Use the medicine exactly as directed. Cyclobenzaprine is usually taken once daily for only 2 or 3 weeks. Follow your doctor's dosing instructions very carefully. Swallow the capsule whole and do not crush, chew, break, or open it. Take the medicine at the same time each day. Call your doctor if your symptoms do not improve after 3 weeks, or if they get worse. Store at room temperature away from moisture, heat, and light. What happens if I miss a dose? Take the medicine as soon as you can, but skip the missed dose if it is almost time for your next dose. Do not take two doses at one time. What happens if I overdose? Seek emergency medical attention or call the Poison Help line at . An overdose of cyclobenzaprine can be fatal. Overdose symptoms may include severe drowsiness, vomiting, fast heartbeats, tremors, agitation, or hallucinations. What should I avoid while taking cyclobenzaprine? Avoid driving or hazardous activity until you know how this medicine will affect you. Your reactions could be impaired. Avoid drinking alcohol. Dangerous side effects could occur. What are the possible side effects of cyclobenzaprine? Get emergency medical help if you have signs of an allergic reaction: hives; difficult breathing; swelling of your face, lips, tongue, or throat. Stop using cyclobenzaprine and call your doctor at once if you have: fast or irregular heartbeats; chest pain or pressure, pain spreading to your jaw or shoulder; or sudden numbness or weakness (especially on one side of the body), slurred speech, balance problems. Seek medical attention right away if you have symptoms of serotonin syndrome, such as: agitation, hallucinations, fever, sweating, shivering, fast heart rate, muscle stiffness, twitching, loss of coordination, nausea, vomiting, or diarrhea. Serious side effects may be more likely in older adults. Common side effects may include: drowsiness, tiredness; headache, dizziness; dry mouth; or upset stomach, nausea, constipation. This is not a complete list of side effects and others may occur. Call your doctor for medical advice about side effects. You may report side effects to FDA at 0-287-PBH-1293. What other drugs will affect cyclobenzaprine? Using cyclobenzaprine with other drugs that make you drowsy can worsen this effect. Ask your doctorbefore using opioid medication, a sleeping pill, a muscle relaxer, or medicine for anxiety or seizures. Tell your doctor about all your other medicines, especially: bupropion (Zyban, for smoking cessation); meperidine; tramadol; verapamil; cold or allergy medicine that contains an antihistamine (Benadryl and others); medicine to treat Parkinson's disease; medicine to treat excess stomach acid, stomach ulcer, motion sickness, or irritable bowel syndrome; medicine to treat overactive bladder; or bronchodilator asthma medication. This list is not complete. Other drugs may affect cyclobenzaprine, including prescription and ldyj-aoi-ycnnfhx medicines, vitamins, and herbal products. Not all possible drug interactions are listed here. Where can I get more information? Your pharmacist can provide more information about cyclobenzaprine. Remember, keep this and all other medicines out of the reach of children, never share your medicines with others, and use this medication only for the indication prescribed. Every effort has been made to ensure that the information provided by [employer]. [employer] is accurate, up-to-date, and complete, but no guarantee is made to that effect. Drug information contained herein may be time sensitive. [employer] information has been compiled for use by healthcare practitioners and consumers in the [place] and therefore [employer] does not warrant that uses outside of the [place] are appropriate, unless specifically indicated otherwise. [employer] drug information does not endorse drugs, diagnose patients or recommend therapy. [employer] drug information isan informational resource designed to assist licensed healthcare practitioners in caring for their p atients and/or to serve consumers viewing this service as a supplement to, and not a substitute for, the expertise, skill, knowledge and judgment of healthcare practitioners. The absence of a warningfor a given drug or drug combination in no way should be construed to indicate that the drug or drug combination is safe, effective or appropriate for any given patient. [employer] does not assume any responsibility for any aspect of healthcare administered with the aid of information [employer] provides. The information contained herein is not intended to cover all possible uses, directions, precautions, warnings, drug interactions, allergic reactions, or adverse effects. If you have questions about the drugs you are taking, check with your doctor, nurse or pharmacist. Copyright 3899-8733 [employer]. Version: 5.01. Revision Date: 04/14/2018. prednisone (PRED benjy Diallo What is the most important information I should know about prednisone? You should not use prednisone if you have a fungal infection anywhere in your body. You should not stop using prednisone suddenly. Follow your doctor's instructions about tapering your dose. What is prednisone? Prednisone is a steroid that reduces inflammation in the body, and also suppresses your immune system. Prednisone is used to treat many different conditions such as hormonal disorders, skin diseases, arthritis, lupus, psoriasis, allergic conditions, ulcerative colitis, Crohn's disease, eye diseases, lung diseases, asthma, tuberculosis, blood cell disorders, kidney disorders, leukemia, lymphoma, multi ple sclerosis, organ transplant rejection, swelling from a brain tumor or injury. Prednisone may also be used for purposes not listed in this medication guide. What should I discuss with my healthcare provider before taking prednisone? You should not use prednisone if you are allergic to it, or if you have a fungal infection anywherein your body. Steroid medication can weaken your immune system, making it easier for you to get an infection or worsening an infection you already have. Tell your doctor about any illness or infection you've had within the past several weeks. Tell your doctor if you have ever had: heart problems, high blood pressure, or a heart attack; glaucoma or cataracts; herpes infection of the eyes; past or present tuberculosis; a parasite infection that causes diarrhea (such as threadworms); any illness that causes diarrhea; underactive thyroid; diabetes; a stomach ulcer, diverticulitis; a colostomy or ileostomy; osteoporosis or low bone mineral density (steroid medication can increase your risk of bone loss); low levels of calcium or potassium in your blood; cirrhosis or other liver disease; mental illness or psychosis; or a muscle disorder such as myasthenia gravis. Long-term use of steroids may lead to bone loss (osteoporosis), especially if you smoke or drink alcohol, if you do not exercise, or if you do not get enough vitamin D or calcium in your diet. It is not known whether this medicine will harm an unborn baby. Tell your doctor if you are or plan to become . You should not breastfeed while using prednisone. How should I take prednisone? Follow all directions on your prescription label and read all medication guides or instruction sheets. Your doctor may occasionally change your dose. Use the medicine exactly as directed. Prednisone is taken daily or every other day, depending on the condition being treated. You may need to take the medicine at a certain time of day. Follow your doctor's instructions about when and how often to take this medicine. Take with food if prednisone upsets your stomach. Measure liquid medicine carefully. Use the dosing syringe provided, or use a medicine dose-measuring device (not a kitchen spoon). Swallow the delayed-release tablet whole and do not crush, chew, or break it. Prednisone can weaken (suppress) your immune system, and you may get an infection more easily. Callyour doctor if you have signs of infection (fever, weakness, cold or flu symptoms, skin sores, diarrhea, frequent or recurring illness). If you have major surgery or a severe injury or infection, your prednisone dose needs may change. Make sure any doctor caring for you knows you are using this medicine. If you use this medicine long-term, you may need medical tests and vision exams. In case of emergency, wear or carry medical identification to let others know you use a steroid. You should not stop using prednisone suddenly. Follow your doctor's instructions about tapering your dose. Store at room temperature away from moisture, heat, and light. What happens if I miss a dose? Take the medicine as soon as you can, but skip the missed dose if it is almost time for your next dose. Do not take two doses at one time. What happens if I overdose? Seek emergency medical attention or call the [employer] Help line at . High doses or long-term use of prednisone can lead to thinning skin, easy bruising, changes in bodyfat (especially in your face, neck, back, and waist), increased acne or facial hair, menstrual problems, impotence, or loss of interest in sex. What should I avoid while taking prednisone? Do not receive a 'live' vaccine while using prednisone. The vaccine may not work as well and may not fully protect you from disease. Live vaccines include measles, mumps, rubella (MMR), polio, rotavirus, typhoid, yellow fever, varicella (chickenpox), zoster (shingles), and nasal flu (influenza) vaccine. Avoid being near people who are sick or have infections. Call your doctor for preventive treatment if you are exposed to chickenpox or measles. These conditions can be serious or even fatal in peoplewho are using steroid medicine. Avoid drinking alcohol. What are the possible side effects of prednisone? Get emergency medical help if you have signs of an allergic reaction: hives; difficult breathing; swelling of your face, lips, tongue, or throat. Call your doctor at once if you have: muscle pain or weakness; blurred vision, tunnel vision, eye pain, or seeing halos around lights; severe depression, changes in personality, unusual thoughts or behavior; bloody or tarry stools, coughing up blood or vomit that looks like coffee grounds; swelling, rapid weight gain, feeling short of breath; irregular heartbeats; severe headache, pounding in your neck or ears; decreased adrenal gland hormones--muscle weakness, tiredness, diarrhea, nausea, menstrual changes, skin discoloration, craving salty foods, and feeling light- headed; or low potassium level--leg cramps, constipation, irregular heartbeats, fluttering in your chest, increased thirst or urination, numbness or tingling, muscle weakness or limp feeling. Prednisone can affect growth in children. Tell your doctor if your child is not growing at a normalrate while using this medicine. Common side effects may include: weight gain (especially in your face or your upper back and torso); increased appetite; mood changes, trouble sleeping; changes in your menstrual periods; problems with memory or thought; muscle or joint pain; weakness; headache, dizziness, spinning sensation; nausea, bloating, loss of appetite; slow wound healing; or acne, increased sweating, thinning skin, bruising, pinpoint spots under your skin. This is not a complete list of side effects and others may occur. Call your doctor for medical advice about side effects. You may report side effects to FDA at 3-751-ULE-5074. What other drugs will affect prednisone? Sometimes it is not safe to use certain medications at the same time. Some drugs can affect your blood levels of other drugs you take, which may increase side effects or make the medications less effective. Tell your doctor about all your current medicines. Many drugs can affect prednisone, especially: bupropion; cyclosporine; digoxin; ketoconazole; an antibiotic; control pills or hormone replacement therapy; a diuretic or 'water pill'; insulin or oral diabetes medicine; a blood thinner--warfarin, Coumadin, Jantoven; or NSAIDs (nonsteroidal anti-inflammatory drugs)--aspirin, ibuprofen (Advil, Motrin), naproxen (Aleve), celecoxib, diclofenac, indomethacin, meloxicam, and others. This list is not complete and many other drugs may affect prednisone. This includes prescription and [id number] medicines, vitamins, and herbal products. Not all possible drug interactions are listed here. Where can I get more information? Your pharmacist can provide more information about prednisone. Remember, keep this and all other medicines out of the reach of children, never share your medicines with others, and use this medication only for the indication prescribed. Every effort has been made to ensure that the information provided by [employer]. ('[employer]') is accurate, up-to-date, and complete, but no guarantee is made to that effect. Drug information contained herein may be time sensitive. [employer] information has been compiled for use by healthcare practitioners and consumers in the [place] and therefore [employer] does not warrant that uses outside of the [place] are appropriate, unless specifically indicated otherwise. [employer] drug information does not endorse drugs, diagnose patients or recommend therapy. [employer] drug information isan informational resource designed to assist licensed healthcare practitioners in caring for their p atients and/or to serve consumers viewing this service as a supplement to, and not a substitute for, the expertise, skill, knowledge and judgment of healthcare practitioners. The absence of a warningfor a given drug or drug combination in no way should be construed to indicate that the drug or drug combination is safe, effective or appropriate for any given patient. [employer] does not assume any responsibility for any aspect of healthcare administered with the aid of information [employer] provides. The information contained herein is not intended to cover all possible uses, directions, precautions, warnings, drug interactions, allergic reactions, or adverse effects. If you have questions about the drugs you are taking, check with your doctor, nurse or pharmacist. Copyright 4069-5029 [employer]. Version: 10. Revision Date: 10/14/2018. Education Materials Back Care Tips Caring for your back These are things you can do to prevent a recurrence of acute back pain and to reduce symptoms from chronic back pain: Maintain a healthy weight. If you are overweight, losing weight will help most types of back pain. Exercise is an important part of recovery from most types of back pain. The muscles behind and in front of the spine support the back. This means strengthening both the back muscles and the abdominalmuscles will provide better support for your spine. Swimming and brisk walking are good overall exercises to improve your fitness level. Practice safe lifting methods (below). Practice good posture when sitting, standing and walking. Avoid prolonged sitting. This puts more stress on the lower back than standing or walking. Wear quality shoes with sufficient arch support. Foot and ankle alignment can affect back symptoms.Women should avoid wearing high heels. Therapeutic massage can help relax the back muscles without stretching them. During the first 24 to 72 hours after an acute injury or flare-up of chronic back pain, apply an ice pack to the painful area for 20 minutes and then remove it for 20 minutes, over a period of 60 to 90 minutes, or several times a day. As a safety precaution, do not use a heating pad at bedtime. Sleeping on a heating pad can lead to skin beltran or tissue damage. You can alternate ice and heat therapies. Medicines Talk to your healthcare provider before using medicines, especially if you have other medical problems or are taking other medicines. You may use acetaminophen or ibuprofen to control pain, unless your healthcare provider prescribed other pain medicine. If you have chronic conditions like diabetes, liver or kidney disease, stomach ulcers, or gastrointestinal bleeding, or are taking blood thinners, talk with your healthcare provider before taking any medicines. Be careful if you are given prescription pain medicines, narcotics, or medicine for muscle spasm. They can cause drowsiness, affect your coordination, reflexes, and judgment. Do not drive or operate heavy machinery while taking these types of medicines. Take prescription pain medicine only as prescribed by your healthcare provider. Lumbar stretch Here is a simple stretching exercise that will help relax muscle spasm and keep your back more limber. If exercise makes your back pain worse, don t do it. Lie on your back with your knees bent and both feet on the ground. Slowly raise your left knee to your chest as you flatten your lower back against the floor. Hold for 5 seconds. Relax and repeat the exercise with your right knee. Do 10 of these exercises for each leg. Safe lifting method Don t bend over at the waist to lift an object off the floor. Instead, bend your knees and hips in a squat. Keep your back and head upright Hold the object close to your body, directly in front of you. Straighten your legs to lift the object. Lower the object to the floor in the reverse fashion. If you must slide something across the floor, push it. Posture tips Sitting Sit in chairs with straight backs or low-back support. Keep your knees lower than your hips, with your feet flat on the floor. When driving, sit up straight. Adjust the seat forward so you are not leaning toward the steering wheel. A small pillow or rolled towel behind your lower back may help if you are driving long distances. Standing When standing for long periods, shift most of your weight to one leg at a time. Alternate legs every few minutes. Sleeping The best way to sleep is on your side with your knees bent. Put a low pillow under your head to support your neck in a neutral spine posi (more content not included)... [facility]05-08-2022 Hospital Discharge instructions Patient Education 11/24/2021 12:02:11 Back Care Tips Back Care Tips Caring for your back These are things you can do to prevent a recurrence of acute back pain and to reduce symptoms from chronic back pain: Maintain a healthy weight. If you are overweight, losing weight will help most types of back pain. Exercise is an important part of recovery from most types of back pain. The muscles behind and in front of the spine support the back. This means strengthening both the back muscles and the abdominalmuscles will provide better support for your spine. Swimming and brisk walking are good overall exercises to improve your fitness level. Practice safe lifting methods (below). Practice good posture when sitting, standing and walking. Avoid prolonged sitting. This puts more stress on the lower back than standing or walking. Wear quality shoes with sufficient arch support. Foot and ankle alignment can affect back symptoms.Women should avoid wearing high heels. Therapeutic massage can help relax the back muscles without stretching them. During the first 24 to 72 hours after an acute injury or flare-up of chronic back pain, apply an ice pack to the painful area for 20 minutes and then remove it for 20 minutes, over a period of 60 to 90 minutes, or several times a day. As a safety precaution, do not use a heating pad at bedtime. Sleeping on a heating pad can lead to skin beltran or tissue damage. You can alternate ice and heat therapies. Medicines Talk to your healthcare provider before using medicines, especially if you have other medical problems or are taking other medicines. You may use acetaminophen or ibuprofen to control pain, unless your healthcare provider prescribed other pain medicine. If you have chronic conditions like diabetes, liver or kidney disease, stomach ulcers, or gastrointestinal bleeding, or are taking blood thinners, talk with your healthcare provider before taking any medicines. Be careful if you are given prescription pain medicines, narcotics, or medicine for muscle spasm. They can cause drowsiness, affect your coordination, reflexes, and judgment. Do not drive or operate heavy machinery while taking these types of medicines. Take prescription pain medicine only as prescribed by your healthcare provider. Lumbar stretch Here is a simple stretching exercise that will help relax muscle spasm and keep your back more limber. If exercise makes your back pain worse, don t do it. Lie on your back with your knees bent and both feet on the ground. Slowly raise your left knee to your chest as you flatten your lower back against the floor. Hold for 5 seconds. Relax and repeat the exercise with your right knee. Do 10 of these exercises for each leg. Safe lifting method Don t bend over at the waist to lift an object off the floor. Instead, bend your knees and hips in a squat. Keep your back and head upright Hold the object close to your body, directly in front of you. Straighten your legs to lift the object. Lower the object to the floor in the reverse fashion. If you must slide something across the floor, push it. Posture tips Sitting Sit in chairs with straight backs or low-back support. Keep your knees lower than your hips, with your feet flat on the floor. When driving, sit up straight. Adjust the seat forward so you are not leaning toward the steering wheel. A small pillow or rolled towel behind your lower back may help if you are driving long distances. Standing When standing for long periods, shift most of your weight to one leg at a time. Alternate legs every few minutes. Sleeping The best way to sleep is on your side with your knees bent. Put a low pillow under your head to support your neck in a neutral spine position. Avoid thick pillows that bend your neck to one side. Puta pillow between your legs to further relax your lower back. If you sleep on your back, put pillowsunder your knees to support your legs in a slightly flexed position. Use a firm mattress. If your mattress sags, replace it, or use a 1/2-inch plywood board under the mattress to add support. Follow-up care Follow up with your healthcare provider, or as advised. If X-rays, a CT scan or an MRI scan were taken, they will be reviewed by a radiologist. You will benotified of any new findings that may affect your care. Call 911 Call 911 if any of the following occur: Trouble breathing Confusion Very drowsy Fainting or loss of consciousness Rapid or very slow heart rate Loss of bowel or bladder control When to seek medical advice Call your healthcare provider right away if any of the following occur: Pain becomes worse or spreads to your arms or legs Weakness or numbness in one or both arms or legs Numbness in the groin area [phone] [employer]. [address] [place] [address]. All rights reserved. This information is not intended as a substitute for professional medical care. Always follow yourhealthcare professional's instructions. Follow Up Care 11/24/2021 11:35:27 With:VIANEY RODRIGUEZ MD Address: [address] [place] [address] [place] [id number]- [phone] When:2-4 days [facility] 12-06-2021 History of Present illness Narrative* Clari Mace RT(R) - 06/24/2021 11:00 AM EST Radiology Service Progress Note PATIENT NAME: Nito Estrada DATE OF SERVICE: June 24, 2021 TIME: 11:04 AM PATIENT IDENTITY VERIFICATION COMPLETED USING TWO (2) IDENTIFIERS: Name and Date of confirmedby patient verbally. FALL SCREENING: Has the patient had 2 falls in the last year or 1 fall with injury or currently using an Ambulatory Assistive Device (Walker, Cane, Wheelchair, Crutches, etc.)? No PATIENT GENDER DATA: Male PATIENT RELEVANT IMPLANT DATA REVIEWED: Not Applicable RADIOLOGY DEPARTMENT: General X-ray: Exam(s) Completed: Lower Extremity X- Ray(s): Knee, AP / Lat / Tunne / Merchant Left and Wt. Bearing PERIPHERAL IV DATA: Not applicable SIGNED BY: RT Alek(R) June 24, 2021 11:04 AM documented in this encounterC[facility] ClinicDisad[facility] summary Author Toy Escalona [facility] January 14, 2023 11:05am Note Date/Time January 14, 2023 9:30 am [facility] Medical Records Department [address] [place] [id number] Emergency Department Summary 01/14/23 MR#: [id number] Acct: [id number] Name: NITO ESTRADA Rep #:[id number] : 1975 47 From: Toy Escalona MD PCP: Dr. Vianey Rodriguez MD Status:R EG ER Location: ED HPI History of Present Illness Chief Complaint: Lower Extremity Injury Informant: patient and spouse/S.O. Narrative Narrative: Patient presents with just a day or 2 of swelling, pain, redness right lower extremity. Spontaneous in onset. No recent surgery, hospitalization, long travel or other reason for mobilization. No history of DVT or PE. Has no chestpain or shortness of breath, no fevers or chills. He states it initially started with swelling in his ankle and his foot, and seemed to very quickly progress between last night and this morning. [facility] Medical History Acute exacerbation of chronic low back pain Alcohol abuse Back problem Difficulty balancing Frequent headaches High blood pressure HTN (hypertension) Seasonal allergies Home Medications prednisone 10 mg tablet See Rx Instructions PO QDAY #30 tabs 11/26/21 [Rx Last Taken Unknown] amlodipine 10 mg tablet 10 mg PO DAILY #10 tabs 11/15/22 [Rx Last Taken Unknown] nebivolol 10 mg tablet (Bystolic) 10 mg PO DAILY #10 tabs 11/15/22 [Rx Last Taken Unknown] baclofen 20 mg tablet 20 mg PO TID PRN muscle spasm #60 tabs 11/27/22 [Rx Last Taken Unknown] cetirizine 10 mg capsule (Zyrtec) 10 mg PO DAILY #90 caps 11/27/22 [Rx Last Taken Unknown] prednisone 10 mg tablet See Rx Instructions PO QDAY #30 tabs 11/27/22 [Rx Last Taken Unknown] apixaban 5 mg (74 tabs) tablets in a dose pack (Eliquis DVT-PE Treat 30D Start) 5 mg PO BID #74 tabs 01/14/23 [Rx Last Taken Unknown] Allergy/AdvReac Type Severity Reaction Status Date / Time No Known Allergies Allergy Verified 01/14/23 09:13 Family History Grandfather Kidney disease Liver disease Skin cancer CVA (cerebral vascular accident) Uncle COPD (chronic obstructive pulmonary disease) Mental disorder Social History Smoking Status: Current every day smoker tobacco type: cigarettes alcohol intake: current substance use type: does not use what type of physical activity do you participate in: none ROS ROS ED Constitutional Constitutional ED: Denies chills or fever(s) Cardiovascular Cardiovascular: Denies chest pain, lightheadedness, palpitations, racing heartbeat or syncope Respiratory/Chest Respiratory/Chest: Denies cough or dyspnea Musculoskeletal Musculoskeletal: Reports as per HPI and extremity pain; Denies neck pain Integumentary Denies abscess, Abrasions, rash or wounds Neurologic Neurologic: Denies paresthesias or weakness EXAM Physical Exam Const Vital Signs: 01/14/23 09:10 Temperature 98 F Temperature Source Temporal Pulse Rate 103 H Respiratory Rate 16 Blood Pressure 131/88 H Blood Pressure Mean 102 Pulse Ox 99 Oxygen Delivery Method Room Air Positive well nourished and well developed General Appearance ED: well developed and NAD HEENT Reports moist mucous membranes Eyes PERRL Eyes Narrative: EOMI Neck full ROM and supple Chest Wall inspection of chest normal Resp normal respiratory effort, no retractions and clear to auscultation bilaterally Cardio regular rate, regular rhythm and no murmurs Back/Spine normal ROM and normal to inspection Extremity Extremity Narrative: Erythematous swollen right lower extremity. Progresses proximal to the knee. Some difficulty bending the knee due to swelling, but mostly limited movement due to pain in the groin where he has some palpable lymphadenopathy. No palpable cords throughout the thigh/leg. Very swollen between the knee and ankle, no paresthesias negative Homans, compartments are soft, minimally tender throughout the skin, full range of motion of the ankle without difficulty, foot is less affected does not appear erythematous. The entire lower leg is erythematous, and it progresses up the medial aspect of the thigh. Neuro oriented x3, CN's II-XII intact bilaterally, no focal motor deficits and no sensory deficits noted Sensorium / Orientation: alert Psych mental status grossly normal and thought process normal Skin no wounds Rashes: no rashes MDM MDM MDM Narrative Medical decision making narrative: Given the groin pain and palpable lymphadenopathy my suspicion is that this is aquickly spreading infection, but DVT is in the differential as well. Given thisI ordered basic labs, x-ray to evaluate for subcutaneous air, IV with pain medication and empiric antibiotics, in addition to a duplex ultrasound of the right lower extremity to evaluate for venous thromboembolic process. Although his white blood count is 12.7 slightly elevated, the ultrasound was done after the antibiotics were started and does show extensive DVT all the way up to the external iliac. I suspect now that that is what I was feeling in his groin thatwas tender instead of a lymph node. The exam was somewhat limited because the patient was guarding, understandably. I discussed these findings with Dr. Spaulding vascular, he recommends anticoagulation in the standard manner, and close apatient follow-up for discussions about possible thrombectomy given the extent of clot. He does not have any signs or symptoms of a PE right now. I am given him an injection of Lovenox 1.5 mg/kg to cover him for 24 hours while he feels aprescription for Eliquis and starts that in the morning tomorrow. Lab Data Attestation: I reviewed the patient's lab results. Labs: Laboratory Results - last 24 hr 01/14/23 09:36 WBC 12.7 H RBC 3.93 L Hgb 14.3 Hct 39.8 L MCV 101.3 H MCH 36.4 H MCHC 35.9 RDW Std Deviation 43.2 RDW Coeff of Rudy 11.6 Plt Count 162 MPV 8.9 Immature Gran % (Auto) 0.600 Neut % (Auto) 86.8 H Lymph % (Auto) 4.9 L Wood % (Auto) 5.5 Eos % (Auto) 1.7 Baso % (Auto) 0.5 Absolute Neuts (auto) 11.0 H Absolute Lymphs (auto) 0.62 L Nucleated RBC % 0 Sodium 140 Potassium 3.4 L Chloride 107 Carbon Dioxide 24.0 Anion Gap 9 BUN 11 Creatinine 0.94 Estim Creat Clear Calc 114.86 Est GFR (MDRD) Af Amer 110 Est GFR (MDRD) Non-Af 91 BUN/Creatinine Ratio 11.8 Glucose 112 H Calcium 8.8 Discharge Plan Triage Chief Complaint: Lower Extremity Injury ED Provider: Toy Escalona Dx/Rx/DC Orders Clinical Impression: Acute deep vein thrombosis (DVT) of right lower extremity Instructions: DVT Dc Prescriptions: New Eliquis DVT-PE Treat 30D Start 5 mg (74 tabs) tablets,dose pack 5 mg PO BID Qty: 74 0RF Rx Instructions: use as directed No Action prednisone 10 mg tablet See Rx Instructions PO QDAY Qty: 30 0RF Rx Instructions: 4 tabs for 3 days, then 3 tabs for 3 days, then 2 tabs for 3 days, then 1 tabfor 3 days PO QDAY; administer with food or milk baclofen 20 mg tablet 20 mg PO TID PRN (Reason: muscle spasm) Qty: 60 1RF prednisone 10 mg tablet See Rx Instructions PO QDAY Qty: 30 0RF Rx Instructions: 4 tabs for 3 days, then 3 tabs for 3 days, then 2 tabs for 3 days, then 1 tabfor 3 days PO QDAY; administer with food or milk Zyrtec 10 mg capsule 10 mg PO DAILY Qty: 90 3RF Bystolic 10 mg tablet 10 mg PO DAILY Qty: 10 0RF amlodipine 10 mg tablet 10 mg PO DAILY Qty: 10 0RF Primary Care Provider: Vianey Rodriguez Referrals: Vianey Rodriguez MD [Primary Care Provider] - Fredo Kincaid MD [Med Staff - Active Staff] - As soon as possible (his office to call you and set up follow-up) Disposition Disposition: Home, Self Care What to do if you have Problems For any increased pain, shortness of breath, bleeding, nausea or vomiting, chestpain, or any unexpected problems, contact your Primary Care Provider. Call [facility] ([phone]) or report to the closest Emergency Room. Call 911 if necessary. 01/14/23 1043 <Electronically signed by Toy Escalona MD> Cosigner Signature (if applicable): CC: Dr. Vianey Rodriguez MD ~ Signed ADDENDUM by Dr. Toy Escalona MD on 01/14/23 at 1105 Three-view x-ray series of the right tib-fib shows no subcutaneous emphysema or other bony abnormality on my interpretation. 01/14/23 1105<Electronically signed by Toy Escalona MD> Cosigner Signature (if applicable): cc: Dr. Vianey Rodriguez MD ~* Signed [facility] Work Phone: Evaluation + Plan note No data available for this section [facility] Evaluation note* Diagnosis Onset Date Resolution Status HTN (hypertension) chronic [facility] Work Phone: Evaluation note* Diagnosis Onset Date Resolution Status HTN (hypertension) chronic Muscle spasm noneactive Right shoulder pain noneacti ve [facility] Work Phone: Evaluation note* Diagnosis Localized enlarged lymph nodes- Primary Enlargement of lymph nodes Acute deep vein thrombosis (DVT) of proximal vein of right lower extremity (HCC) documented in this encounter [facility] note* Diagnosis Primary hypertension Unspecified essential hypertension Medication management Encounter for long-term (current) use of other medications documented in this encounter [facility] note* Diagnosis Localized enlarged lymph nodes Enlargement of lymph nodes documented in this encounter [facility] note* Diagnosis Onset Date Resolution Status DVT (deep venous thrombosis) chronic Gout chronic HTN (hypertension) [facility] Work Phone: Evaluation note* Diagnosis Acute pain of left knee documented in this encounter [facility] noteNo assessment information availableWWright-[facility] Work Phone: Hospital Discharge instructionsAdditional Instructions Thank you for trusting us with your care today! Your labs images today were concerning for blood clots in your lung. This is treated blood thinners. Please discontinue taking Eliquis and start taking Xarelto. Please return to the emergency department if your symptoms change or worsen. Specifically develop worsening shortness of breath, chest pain if you lose consciousness. If you develop any bleeding issues. Please follow with your primary care physician for further outpatient evaluation and management. Please follow with Dr. Neely open this is hand surgery) for further evaluation of concern for Dupuytren's contracture.[facility] Work Phone: Note* Orly Howell RN: PERFORM Event Display: [facility] Patient Summary Authored Date: [id number] Discharge Instructions Thank you for allowing [facility] to assist you with your healthcare needs. The following is importantdischarge information regarding your hospital visit. Diagnosis from Today's Visit Back pain What to Do Next Instructions from Your Care Team Discharge Return to Work, School, or Sports (Return to Work, School, or Sports) - Ordered -- 04/06/22, 04/08/22, May return to: work, 04/06/22 13:10:00 EDT Post Acute Orders No qualifying data available. You Need to Schedule the Following Appointments Follow Up with IESHA HYDE MD, [facility] When Within 2-4 days Where: [address] [facility] [place] [address]- [phone] Follow Up with RAYMOND GARCIA DO, Orthopedic, [facility] When Within 2-4 days Where: [address] [place] [address]- [phone] Follow Up with VIANEY RODRIGUEZ MD When Within 2-4 days Where: [address] [place] [address]- [phone] Allergies NKA Medications Please ask your primary doctor or pharmacist before taking any other medication not listed, including over the counter drugs, herbal medications, vitamins and or supplements as they may interact withyour home medications. What How Much When Instructions Last Dose New cyclobenzaprine (cyclobenzaprine 5 mg oral tablet) 1 tab(s) by mouth Three (3) times a day Duration: 7 Days Printed Prescription New lidocaine topical (lidocaine 5% topical patch) 1 patch(es) Topical Once a day Duration: 30 Days remove patches after 12 hours Printed Prescription New naproxen (naproxen 500 mg oral delayed release tablet) 1 tab(s) by mouth Two (2) times a day Duration: 20 Days Printed Prescription New predniSONE (predniSONE 10 mg oral tablet) 3 tab(s) by mouth Two (2) times a day Duration: 5 Days -Take 60mg (6tabs) the 1st dose. -30mg every 12 hrs. after 1st dose Printed Prescription Unchanged nebivolol (Bystolic 10 mg oral tablet) 1 tab(s) by mouth Once a day Please take this list to your next doctor s visit. Bring all medications you take, including over the counter medications, herbals and other supplements with you to your doctor s visit. Patients and families are reminded to discard old lists and to update any records with all medication providers or retail pharmacies. Medication Leaflets lidocaine topical (LYE biggs gonzalez TOP i lorna) AneCream, Bactine, Glydo, LidaMantle, Lidoderm, LidoRx, Medi-Quik [place], RadiaGuard, RectiCare, Regenecare JACKSON [place], Solarcaine Cool Aloe What is the most important information I should know about lidocaine topical? An overdose of numbing medicine can cause fatal side effects if too much of the medicine is absorbed through your skin. Do not use large amounts of lidocaine topical, or cover treated skin areas with a bandage or plastic wrap without medical advice. Keep both used and unused lidocaine skin patches out of the reach of children or pets. The amount of lidocaine in the skin patches could be harmful to a child or pet who accidentally sucks on or swallows the patch. What is lidocaine topical? Lidocaine is a local anesthetic (numbing medication). There are many brands and forms of lidocaine available. Not all brands are listed on this leaflet. Lidocaine topical (for use on the skin) is used to reduce pain or discomfort caused by skin irritations such as sunburn, insect bites, poison thad, poison oak, poison sumac, and minor cuts, scratches,or beltran. Lidocaine topical is also used to treat rectal discomfort caused by hemorrhoids. Lidocaine intradermal device can be used in minor medical procedures such as venipuncture or peripheral intravenous cannulation. Lidocaine topical may also be used for purposes not listed in this medication guide. What should I discuss with my healthcare provider before using lidocaine topical? You should not use lidocaine topical if you are allergic to any type of numbing medicine. Fatal overdoses have occurred when numbing medicines were used without the advice of a medical doctor (such as during a cosmetic procedure like laser hair removal). However, overdose has also occurred in women treated with a numbing medicine before having a mammography. Be aware that many cosmetic procedures are performed without a medical doctor present. Tell your doctor if you have ever had: a blood cell disorder called methemoglobinemia (in you or a family member); liver disease; or if you take a heart rhythm medicine. Tell your doctor if you are or . If you apply lidocaine topical to your chest, avoid areas that may come into contact with the baby's mouth. How should I use lidocaine topical? Use this medicine exactly as directed on the label, or as it has been prescribed by your doctor. Donot apply this medicine in larger amounts than recommended. Improper use of lidocaine topical may result in . Lidocaine topical comes in many different forms (gel, spray, cream, lotion, ointment, liquid, skin patch, and others). Do not take by mouth. Topical medicine is for use only on the skin. If this medicine gets in your eyes, nose, mouth, rectum, or vagina, rinse with water. Read and carefully follow any Instructions for Use provided with your medicine. Ask your doctor or pharmacist if you do not understand these instructions. Use the smallest amount of medicine needed to numb the skin or relieve pain. Your body may absorb too much of this medicine if you use too much, if you apply it over large skin areas, or if you applyheat, bandages, or plastic wrap to treated skin areas. Skin that is cut or irritated may also absorb more topical medication than healthy skin. Do not apply this medicine to swollen skin areas or deep puncture wounds. Avoid using the medicine on skin that is raw or blistered, such as a severe burn or abrasion. Do not cover treated skin unless your doctor has told you to. Lidocaine topical may be applied with your finger tips or a cotton swab. Lidocaine intradermal device is applied by a healthcare provider. Store at room temperature away from moisture and heat. Keep both used and unused lidocaine topical skin patches out of the reach of children or pets. The amount of lidocaine in the skin patches could be harmful to a child or pet who accidentally sucks onor swallows the patch. Seek emergency medical attention if this happens. What happens if I miss a dose? Since lidocaine topical is used when needed, you may not be on a dosing schedule. Skip any missed dose if it's almost time for your next dose. Do not use two doses at one time. What happens if I overdose? Seek emergency medical attention or call the Poison Help line at . An overdose of numbing medicine can cause fatal side effects if too much of the medicine is absorbed through your skinand into your blood. Overdose symptoms may include uneven heartbeats, seizure (convulsions), slowed breathing, coma, or respiratory failure (breathing stops). Lidocaine applied to the skin is not likely to cause an overdose unless you apply more than the recommended dose. What should I avoid while using lidocaine topical? Avoid touching the sticky side of a lidocaine skin patch while applying it. Avoid accidentally injuring treated skin areas while they are numb. Avoid coming into contact with very hot or very cold surfaces. What are the possible side effects of lidocaine topical? Get emergency medical help if you have signs of an allergic reaction: hives; difficulty breathing; swelling of your face, lips, tongue, or throat. Call your doctor at once if you have: severe headache or vomiting; severe burning, stinging, or irritation where the medicine was applied; swelling or redness; sudden dizziness or drowsiness after medicine is applied; confusion, problems with speech or vision, ringing in your ears; or unusual sensations of temperature. Common side effects include: mild irritation where the medication is applied; or numbness in places where the medicine is accidentally applied. This is not a complete list of side effects and others may occur. Call your doctor for medical advice about side effects. You may report side effects to FDA at 1-099-OQV-2100. What other drugs will affect lidocaine topical? Medicine used on the skin is not likely to be affected by other drugs you use. But many drugs can interact with each other. Tell each of your health care providers about all medicines you use, including prescription and rtwg-wki-ffjyehh medicines, vitamins, and herbal products. Where can I get more information? Your pharmacist can provide more information about lidocaine topical. Remember, keep this and all other medicines out of the reach of children, never share your medicines with others, and use this medication only for the indication prescribed. Every effort has been made to ensure that the information provided by [employer]. [employer]') is accurate, up-to-date, and complete, but no guarantee is made to that effect. Drug information contained herein may be time sensitive. [employer] information has been compiled for use by healthcare practitioners and consumers in the [place] and therefore [employer] does not warrant that uses outside of the [place] are appropriate, unless specifically indicated otherwise. [employer] drug information does not endorse drugs, diagnose patients or recommend therapy. [employer] drug information isan informational resource designed to assist licensed healthcare practitioners in caring for their p atients and/or to serve consumers viewing this service as a supplement to, and not a substitute for, the expertise, skill, knowledge and judgment of healthcare practitioners. The absence of a warningfor a given drug or drug combination in no way should be construed to indicate that the drug or drug combination is safe, effective or appropriate for any given patient. [facility] does not assume any responsibility for any aspect of healthcare administered with the aid of information [facility] provides. The information contained herein is not intended to cover all possible uses, directions, precautions, warnings, drug interactions, allergic reactions, or adverse effects. If you have questions about the drugs you are taking, check with your doctor, nurse or pharmacist. Copyright [id number] [employer]. Version: 9.02. Revision Date: 12/03/2021. naproxen (na PROX en) Aleve, Anaprox-DS, Midol Extended Relief, Naprelan 500, Naprosyn What is the most important information I should know about naproxen? Naproxen can increase your risk of fatal heart attack or stroke. Do not use this medicine just before or after heart bypass surgery (coronary artery bypass graft, or CABG). Naproxen may also cause stomach or intestinal bleeding, which can be fatal. What is naproxen? Naproxen is a nonsteroidal anti-inflammatory drug (NSAID). Naproxen is used to treat pain or inflammation caused by conditions such as arthritis, ankylosing spondylitis, tendinitis, bursitis, gout, or menstrual cramps. The delayed-release or extended-release tablets are slower-acting forms of naproxen that are used only for treating chronic conditions such as arthritis or ankylosing spondylitis. These forms of naproxen will not work fast enough to treat acute pain. Naproxen may also be used for purposes not listed in this medication guide. What should I discuss with my healthcare provider before taking naproxen? Naproxen can increase your risk of fatal heart attack or stroke, even if you don't have any risk factors. Do not use this medicine just before or after heart bypass surgery (coronary artery bypass graft, or CABG). Naproxen may also cause stomach or intestinal bleeding, which can be fatal. These conditions can occur without warning while you are using naproxen, especially in older adults. You should not use naproxen if you are allergic to it, or if you have ever had an asthma attack or severe allergic reaction after taking aspirin or an NSAID. Ask a doctor before giving naproxen to a child younger than 12 years old. Ask a doctor or pharmacist if this medicine is safe to use if you have: heart disease, high blood pressure, high cholesterol, diabetes, or if you smoke; a heart attack, stroke, or blood clot; stomach ulcers or bleeding; asthma; liver or kidney disease; fluid retention; or if you take aspirin to prevent heart attack or stroke. If you are , you should not take naproxen unless your doctor tells you to. Taking an NSAID during the last 20 weeks of can cause serious heart or kidney problems in the unborn baby and possible complications with your . It may not be safe to breastfeed while using this medicine. Ask your doctor about any risk. How should I take naproxen? Use exactly as directed on the label, or as prescribed by your doctor. Use the lowest dose that is effective in treating your condition. Shake the oral suspension (liquid) before you measure a dose. Measure a dose with the supplied measuring device (not a kitchen spoon). Take this medicine with food or milk if it upsets your stomach. Always follow directions on the medicine label about giving this medicine to a child. Naproxen doses are based on weight in children. Your child's dose needs may change if the child gains or loses weight. If you use naproxen long-term, you may need frequent medical tests. This medicine can affect the results of certain medical tests. Tell any doctor who treats you that you are using naproxen. Store at room temperature away from moisture, heat, and light. Keep the bottle tightly closed when not in use. What happens if I miss a dose? Since naproxen is used when needed, you may not be on a dosing schedule. Skip any missed dose if it's almost time for your next dose. Do not use two doses at one time. What happens if I overdose? Seek emergency medical attention or call the Poison Help line at . What should I avoid while taking naproxen? Avoid drinking alcohol. It may increase your risk of stomach bleeding. Avoid taking aspirin or other NSAIDs unless your doctor tells you to. Ask a doctor or pharmacist before using other medicines for pain, fever, swelling, or cold/flu symptoms. They may contain ingredients similar to naproxen (such as aspirin, ibuprofen, or ketoprofen). Ask your doctor before using an antacid, and use only the type your doctor recommends. Some antacids can make it harder for your body to absorb naproxen. What are the possible side effects of naproxen? Get emergency medical help if you have signs of an allergic reaction (runny or stuffy nose, wheezing or trouble breathing, hives, swelling in your face or throat) or a severe skin reaction (fever, sore throat, burning eyes, skin pain, red or purple skin rash with blistering and peeling). Stop using naproxen and seek medical treatment if you have a serious drug reaction that can affect many parts of your body. Symptoms may include skin rash, fever, swollen glands, muscle aches, severeweakness, unusual bruising, or yellowing of your skin or eyes. Get emergency medical help if you have signs of a heart attack or stroke: chest pain spreading to your jaw or shoulder, sudden numbness or weakness on one side of the body, slurred speech, leg swelling, feeling short of breath. Stop using naproxen and call your doctor at once if you have: shortness of breath (even with mild exertion); swelling or rapid weight gain; the first sign of any skin rash or blister, no matter how mild; signs of stomach bleeding--bloody or tarry stools, coughing up blood or vomit that looks like coffee grounds; liver problems--nausea, upper stomach pain, loss of appetite, dark urine, herson- colored stools, jaundice (yellowing of the skin or eyes); kidney problems--little or no urination, painful urination, swelling in your feet or ankles; or low red blood cells (anemia)--pale skin, unusual tiredness, feeling light-headed or short of breath, cold hands and feet. Common side effects may include: headache; indigestion, heartburn, stomach pain; or flu symptoms; This is not a complete list of side effects and others may occur. Call your doctor for medical advice about side effects. You may report side effects to FDA at 3-004-EVB-9946. What other drugs will affect naproxen? Ask your doctor before using naproxen if you take an antidepressant. Taking certain antidepressantswith an NSAID may cause you to bruise or bleed easily. Ask a doctor or pharmacist before using naproxen with any other medications, especially: other NSAIDs or salicylates (diflunisal, salsalate); antacids and sucralfate; cholestyramine; cyclosporine; digoxin; lithium; methotrexate; pemetrexed; probenecid; warfarin (Coumadin, Jantoven) or similar blood thinners; a diuretic or 'water pill'; or heart or blood pressure medication. This list is not complete. Other drugs may affect naproxen, including prescription and gpsh-tow-qpwzsgz medicines, vitamins, and herbal products. Not all possible drug interactions are listed here. Where can I get more information? Your pharmacist can provide more information about naproxen. Remember, keep this and all other medicines out of the reach of children, never share your medicines with others, and use this medication only for the indication prescribed. Every effort has been made to ensure that the information provided by [employer]. [employer] is accurate, up-to-date, and complete, but no guarantee is made to that effect. Drug information contained herein may be time sensitive. [employer] information has been compiled for use by healthcare practitioners and consumers in the [place] and therefore [employer] does not warrant that uses outside of the [place] are appropriate, unless specifically indicated otherwise. [employer] drug information does not endorse drugs, diagnose patients or recommend therapy. [employer] drug information isan informational resource designed to assist licensed healthcare practitioners in caring for their p atients and/or to serve consumers viewing this service as a supplement to, and not a substitute for, the expertise, skill, knowledge and judgment of healthcare practitioners. The absence of a warningfor a given drug or drug combination in no way should be construed to indicate that the drug or drug combination is safe, effective or appropriate for any given patient. [employer] does not assume any responsibility for any aspect of healthcare administered with the aid of information [employer] provides. The information contained herein is not intended to cover all possible uses, directions, precautions, warnings, drug interactions, allergic reactions, or adverse effects. If you have questions about the drugs you are taking, check with your doctor, nurse or pharmacist. Copyright 6034-3901 [employer]. Version: .. Revision Date: 11/26/2021. cyclobenzaprine (theodore west) Amrix, Comfort Pac with Cyclobenzaprine, Fexmid What is the most important information I should know about cyclobenzaprine? You should not use cyclobenzaprine if you have a thyroid disorder, heart block, congestive heart failure, a heart rhythm disorder, or you have recently had a heart attack. Do not use cyclobenzaprine if you have taken an MAO inhibitor in the past 14 days, such as isocarboxazid, linezolid, phenelzine, rasagiline, selegiline, or tranylcypromine. What is cyclobenzaprine? Cyclobenzaprine is a muscle relaxant. It works by blocking nerve impulses (or pain sensations) thatare sent to your brain. Cyclobenzaprine is used together with rest and physical therapy to relieve muscle spasms caused by painful conditions such as an injury. Cyclobenzaprine may also be used for purposes not listed in this medication guide. What should I discuss with my healthcare provider before taking cyclobenzaprine? You should not use cyclobenzaprine if you are allergic to it, or if you have: a thyroid disorder; heart block, heart rhythm disorder, congestive heart failure; or if you have recently had a heart attack. Cyclobenzaprine is not approved for use by anyone younger than 15 years old. Do not use cyclobenzaprine if you have taken an MAO inhibitor in the past 14 days. A dangerous druginteraction could occur. MAO inhibitors include isocarboxazid, linezolid, phenelzine, rasagiline, selegiline, and tranylcypromine. Some medicines can interact with cyclobenzaprine and cause a serious condition called serotonin syndrome. Be sure your doctor knows if you also take stimulant medicine, opioid medicine, herbal products, or medicine for depression, mental illness, Parkinson's disease, migraine headaches, serious infections, or prevention of nausea and vomiting. Ask your doctor before making any changes in how or when you take your medications. Tell your doctor if you have ever had: liver disease; glaucoma; enlarged prostate; or problems with urination. It is not known whether this medicine will harm an unborn baby. Tell your doctor if you are or plan to become . It may not be safe to breast-feed while using this medicine. Ask your doctor about any risk. Older adults may be more sensitive to the effects of this medicine. How should I take cyclobenzaprine? Follow all directions on your prescription label and read all medication guides or instruction sheets. Your doctor may occasionally change your dose. Use the medicine exactly as directed. Cyclobenzaprine is usually taken once daily for only 2 or 3 weeks. Follow your doctor's dosing instructions very carefully. Swallow the capsule whole and do not crush, chew, break, or open it. Take the medicine at the same time each day. Call your doctor if your symptoms do not improve after 3 weeks, or if they get worse. Store at room temperature away from moisture, heat, and light. What happens if I miss a dose? Take the medicine as soon as you can, but skip the missed dose if it is almost time for your next dose. Do not take two doses at one time. What happens if I overdose? Seek emergency medical attention or call the Poison Help line at . An overdose of cyclobenzaprine can be fatal. Overdose symptoms may include severe drowsiness, vomiting, fast heartbeats, tremors, agitation, or hallucinations. What should I avoid while taking cyclobenzaprine? Avoid driving or hazardous activity until you know how this medicine will affect you. Your reactions could be impaired. Avoid drinking alcohol. Dangerous side effects could occur. What are the possible side effects of cyclobenzaprine? Get emergency medical help if you have signs of an allergic reaction: hives; difficult breathing; swelling of your face, lips, tongue, or throat. Stop using cyclobenzaprine and call your doctor at once if you have: fast or irregular heartbeats; chest pain or pressure, pain spreading to your jaw or shoulder; or sudden numbness or weakness (especially on one side of the body), slurred speech, balance problems. Seek medical attention right away if you have symptoms of serotonin syndrome, such as: agitation, hallucinations, fever, sweating, shivering, fast heart rate, muscle stiffness, twitching, loss of coordination, nausea, vomiting, or diarrhea. Serious side effects may be more likely in older adults. Common side effects may include: drowsiness, tiredness; headache, dizziness; dry mouth; or upset stomach, nausea, constipation. This is not a complete list of side effects and others may occur. Call your doctor for medical advice about side effects. You may report side effects to FDA at 4-117-OZL-7242. What other drugs will affect cyclobenzaprine? Using cyclobenzaprine with other drugs that make you drowsy can worsen this effect. Ask your doctorbefore using opioid medication, a sleeping pill, a muscle relaxer, or medicine for anxiety or seizures. Tell your doctor about all your other medicines, especially: bupropion (Zyban, for smoking cessation); meperidine; tramadol; verapamil; cold or allergy medicine that contains an antihistamine (Benadryl and others); medicine to treat Parkinson's disease; medicine to treat excess stomach acid, stomach ulcer, motion sickness, or irritable bowel syndrome; medicine to treat overactive bladder; or bronchodilator asthma medication. This list is not complete. Other drugs may affect cyclobenzaprine, including prescription and wnsj-zeg-xehfcye medicines, vitamins, and herbal products. Not all possible drug interactions are listed here. Where can I get more information? Your pharmacist can provide more information about cyclobenzaprine. Remember, keep this and all other medicines out of the reach of children, never share your medicines with others, and use this medication only for the indication prescribed. Every effort has been made to ensure that the information provided by [employer]. ('[employer]') is accurate, up-to-date, and complete, but no guarantee is made to that effect. Drug information contained herein may be time sensitive. [employer] information has been compiled for use by healthcare practitioners and consumers in the [place] and therefore [employer] does not warrant that uses outside of the [place] are appropriate, unless specifically indicated otherwise. [employer] drug information does not endorse drugs, diagnose patients or recommend therapy. [employer] drug information isan informational resource designed to assist licensed healthcare practitioners in caring for their p atients and/or to serve consumers viewing this service as a supplement to, and not a substitute for, the expertise, skill, knowledge and judgment of healthcare practitioners. The absence of a warningfor a given drug or drug combination in no way should be construed to indicate that the drug or drug combination is safe, effective or appropriate for any given patient. [employer] does not assume any responsibility for any aspect of healthcare administered with the aid of information [employer] provides. The information contained herein is not intended to cover all possible uses, directions, precautions, warnings, drug interactions, allergic reactions, or adverse effects. If you have questions about the drugs you are taking, check with your doctor, nurse or pharmacist. Copyright 8098-0600 [employer]. Version: 5.01. Revision Date: 04/14/2018. prednisone (PRED benjy Diallo What is the most important information I should know about prednisone? You should not use prednisone if you have a fungal infection anywhere in your body. You should not stop using prednisone suddenly. Follow your doctor's instructions about tapering your dose. What is prednisone? Prednisone is a steroid that reduces inflammation in the body, and also suppresses your immune system. Prednisone is used to treat many different conditions such as hormonal disorders, skin diseases, arthritis, lupus, psoriasis, allergic conditions, ulcerative colitis, Crohn's disease, eye diseases, lung diseases, asthma, tuberculosis, blood cell disorders, kidney disorders, leukemia, lymphoma, multi ple sclerosis, organ transplant rejection, swelling from a brain tumor or injury. Prednisone may also be used for purposes not listed in this medication guide. What should I discuss with my healthcare provider before taking prednisone? You should not use prednisone if you are allergic to it, or if you have a fungal infection anywherein your body. Steroid medication can weaken your immune system, making it easier for you to get an infection or worsening an infection you already have. Tell your doctor about any illness or infection you've had within the past several weeks. Tell your doctor if you have ever had: heart problems, high blood pressure, or a heart attack; glaucoma or cataracts; herpes infection of the eyes; past or present tuberculosis; a parasite infection that causes diarrhea (such as threadworms); any illness that causes diarrhea; underactive thyroid; diabetes; a stomach ulcer, diverticulitis; a colostomy or ileostomy; osteoporosis or low bone mineral density (steroid medication can increase your risk of bone loss); low levels of calcium or potassium in your blood; cirrhosis or other liver disease; mental illness or psychosis; or a muscle disorder such as myasthenia gravis. Long-term use of steroids may lead to bone loss (osteoporosis), especially if you smoke or drink alcohol, if you do not exercise, or if you do not get enough vitamin D or calcium in your diet. It is not known whether this medicine will harm an unborn baby. Tell your doctor if you are or plan to become . You should not breastfeed while using prednisone. How should I take prednisone? Follow all directions on your prescription label and read all medication guides or instruction sheets. Your doctor may occasionally change your dose. Use the medicine exactly as directed. Prednisone is taken daily or every other day, depending on the condition being treated. You may need to take the medicine at a certain time of day. Follow your doctor's instructions about when and how often to take this medicine. Take with food if prednisone upsets your stomach. Measure liquid medicine carefully. Use the dosing syringe provided, or use a medicine dose-measuring device (not a kitchen spoon). Swallow the delayed-release tablet whole and do not crush, chew, or break it. Prednisone can weaken (suppress) your immune system, and you may get an infection more easily. Callyour doctor if you have signs of infection (fever, weakness, cold or flu symptoms, skin sores, diarrhea, frequent or recurring illness). If you have major surgery or a severe injury or infection, your prednisone dose needs may change. Make sure any doctor caring for you knows you are using this medicine. If you use this medicine long-term, you may need medical tests and vision exams. In case of emergency, wear or carry medical identification to let others know you use a steroid. You should not stop using prednisone suddenly. Follow your doctor's instructions about tapering your dose. Store at room temperature away from moisture, heat, and light. What happens if I miss a dose? Take the medicine as soon as you can, but skip the missed dose if it is almost time for your next dose. Do not take two doses at one time. What happens if I overdose? Seek emergency medical attention or call the Poison Help line at . High doses or long-term use of prednisone can lead to thinning skin, easy bruising, changes in bodyfat (especially in your face, neck, back, and waist), increased acne or facial hair, menstrual problems, impotence, or loss of interest in sex. What should I avoid while taking prednisone? Do not receive a 'live' vaccine while using prednisone. The vaccine may not work as well and may not fully protect you from disease. Live vaccines include measles, mumps, rubella (MMR), polio, rotavirus, typhoid, yellow fever, varicella (chickenpox), zoster (shingles), and nasal flu (influenza) vaccine. Avoid being near people who are sick or have infections. Call your doctor for preventive treatment if you are exposed to chickenpox or measles. These conditions can be serious or even fatal in peoplewho are using steroid medicine. Avoid drinking alcohol. What are the possible side effects of prednisone? Get emergency medical help if you have signs of an allergic reaction: hives; difficult breathing; swelling of your face, lips, tongue, or throat. Call your doctor at once if you have: muscle pain or weakness; blurred vision, tunnel vision, eye pain, or seeing halos around lights; severe depression, changes in personality, unusual thoughts or behavior; bloody or tarry stools, coughing up blood or vomit that looks like coffee grounds; swelling, rapid weight gain, feeling short of breath; irregular heartbeats; severe headache, pounding in your neck or ears; decreased adrenal gland hormones--muscle weakness, tiredness, diarrhea, nausea, menstrual changes, skin discoloration, craving salty foods, and feeling light- headed; or low potassium level--leg cramps, constipation, irregular heartbeats, fluttering in your chest, increased thirst or urination, numbness or tingling, muscle weakness or limp feeling. Prednisone can affect growth in children. Tell your doctor if your child is not growing at a normalrate while using this medicine. Common side effects may include: weight gain (especially in your face or your upper back and torso); increased appetite; mood changes, trouble sleeping; changes in your menstrual periods; problems with memory or thought; muscle or joint pain; weakness; headache, dizziness, spinning sensation; nausea, bloating, loss of appetite; slow wound healing; or acne, increased sweating, thinning skin, bruising, pinpoint spots under your skin. This is not a complete list of side effects and others may occur. Call your doctor for medical advice about side effects. You may report side effects to FDA at 1-255-WAW-2006. What other drugs will affect prednisone? Sometimes it is not safe to use certain medications at the same time. Some drugs can affect your blood levels of other drugs you take, which may increase side effects or make the medications less effective. Tell your doctor about all your current medicines. Many drugs can affect prednisone, especially: bupropion; cyclosporine; digoxin; ketoconazole; an antibiotic; control pills or hormone replacement therapy; a diuretic or 'water pill'; insulin or oral diabetes medicine; a blood thinner--warfarin, Coumadin, Jantoven; or NSAIDs (nonsteroidal anti-inflammatory drugs)--aspirin, ibuprofen (Advil, Motrin), naproxen (Aleve), celecoxib, diclofenac, indomethacin, meloxicam, and others. This list is not complete and many other drugs may affect prednisone. This includes prescription and eaez-qwz-tniondr medicines, vitamins, and herbal products. Not all possible drug interactions are listed here. Where can I get more information? Your pharmacist can provide more information about prednisone. Remember, keep this and all other medicines out of the reach of children, never share your medicines with others, and use this medication only for the indication prescribed. Every effort has been made to ensure that the information provided by [employer]. [employer]') is accurate, up-to-date, and complete, but no guarantee is made to that effect. Drug information contained herein may be time sensitive. [employer] information has been compiled for use by healthcare practitioners and consumers in the [place] and therefore [employer] does not warrant that uses outside of the [place] are appropriate, unless specifically indicated otherwise. [employer] drug information does not endorse drugs, diagnose patients or recommend therapy. [employer] drug information isan informational resource designed to assist licensed healthcare practitioners in caring for their p atients and/or to serve consumers viewing this service as a supplement to, and not a substitute for, the expertise, skill, knowledge and judgment of healthcare practitioners. The absence of a warningfor a given drug or drug combination in no way should be construed to indicate that the drug or drug combination is safe, effective or appropriate for any given patient. [employer] does not assume any responsibility for any aspect of healthcare administered with the aid of information [employer] provides. The information contained herein is not intended to cover all possible uses, directions, precautions, warnings, drug interactions, allergic reactions, or adverse effects. If you have questions about the drugs you are taking, check with your doctor, nurse or pharmacist. Copyright 3225-2265 [employer]. Version: 10.. Revision Date: 10/14/2018. Education Materials Back Care Tips Caring for your back These are things you can do to prevent a recurrence of acute back pain and to reduce symptoms from chronic back pain: Maintain a healthy weight. If you are overweight, losing weight will help most types of back pain. Exercise is an important part of recovery from most types of back pain. The muscles behind and in front of the spine support the back. This means strengthening both the back muscles and the abdominalmuscles will provide better support for your spine. Swimming and brisk walking are good overall exercises to improve your fitness level. Practice safe lifting methods (below). Practice good posture when sitting, standing and walking. Avoid prolonged sitting. This puts more stress on the lower back than standing or walking. Wear quality shoes with sufficient arch support. Foot and ankle alignment can affect back symptoms.Women should avoid wearing high heels. Therapeutic massage can help relax the back muscles without stretching them. During the first 24 to 72 hours after an acute injury or flare-up of chronic back pain, apply an ice pack to the painful area for 20 minutes and then remove it for 20 minutes, over a period of 60 to 90 minutes, or several times a day. As a safety precaution, do not use a heating pad at bedtime. Sleeping on a heating pad can lead to skin beltran or tissue damage. You can alternate ice and heat therapies. Medicines Talk to your healthcare provider before using medicines, especially if you have other medical problems or are taking other medicines. You may use acetaminophen or ibuprofen to control pain, unless your healthcare provider prescribed other pain medicine. If you have chronic conditions like diabetes, liver or kidney disease, stomach ulcers, or gastrointestinal bleeding, or are taking blood thinners, talk with your healthcare provider before taking any medicines. Be careful if you are given prescription pain medicines, narcotics, or medicine for muscle spasm. They can cause drowsiness, affect your coordination, reflexes, and judgment. Do not drive or operate heavy machinery while taking these types of medicines. Take prescription pain medicine only as prescribed by your healthcare provider. Lumbar stretch Here is a simple stretching exercise that will help relax muscle spasm and keep your back more limber. If exercise makes your back pain worse, don t do it. Lie on your back with your knees bent and both feet on the ground. Slowly raise your left knee to your chest as you flatten your lower back against the floor. Hold for 5 seconds. Relax and repeat the exercise with your right knee. Do 10 of these exercises for each leg. Safe lifting method Don t bend over at the waist to lift an object off the floor. Instead, bend your knees and hips in a squat. Keep your back and head upright Hold the object close to your body, directly in front of you. Straighten your legs to lift the object. Lower the object to the floor in the reverse fashion. If you must slide something across the floor, push it. Posture tips Sitting Sit in chairs with straight backs or low-back support. Keep your knees lower than your hips, with your feet flat on the floor. When driving, sit up straight. Adjust the seat forward so you are not leaning toward the steering wheel. A small pillow or rolled towel behind your lower back may help if you are driving long distances. Standing When standing for long periods, shift most of your weight to one leg at a time. Alternate legs every few minutes. Sleeping The best way to sleep is on your side with your knees bent. Put a low pillow under your head to support your neck in a neutral spine position. Avoid thick pillows that bend your neck to one side. Puta pillow between your legs to further relax your lower back. If you sleep on your back, put pillowsunder your knees to support your legs in a slightly flexed position. Use a firm mattress. If your mattress sags, replace it, or use a 1/2-inch plywood board under the mattress to add support. Follow-up care Follow up with your healthcare provider, or as advised. If X-rays, a CT scan or an MRI scan were taken, they will be reviewed by a radiologist. You will benotified of any new findings that may affect your care. Call 911 Call 911 if any of the following occur: Trouble breathing Confusion Very drowsy Fainting or loss of consciousness Rapid or very slow heart rate Loss of bowel or bladder control When to seek medical advice Call your healthcare provider right away if any of the following occur: Pain becomes worse or spreads to your arms or legs Weakness or numbness in one or both arms or legs Numbness in the groin area 6535-0132 [employer]. [address] [place] [address], [place] [address]. All rights reserved. This information is not intended as a substitute for professional medical care. Always follow yourhealthcare professional's instructions. Additional Information VACCINATE! IT SAVES LIVES! Members of the community who have not yet received the COVID-19 vaccine and would like to receive it can visit one of [facility] vaccine clinics. There are many vaccine clinic locations within the [facility]. For locations and available times, please visit [email or web address]. It is important to note that some COVID mobile vaccine clinics are held outdoors and may be canceled in rainy orstormy conditions. To learn more about pediatric vaccinations (ages 5-11), we invite you to visit the [facility] webpage. [email or web address] learn more about the [email or web address] vaccine, we invite you to visit the [facility] website for a list of frequently asked questions. [email or web address] [facility] Access Instructions: Stay connected with your healthcare team and access your personal medical information anytime with the [employer] Patient Portal. If you would like a full copy of your medical records please contact the [facility] Medical Records Department Thursday through Thursday between 8a.m. and 4:30p.m. Please follow the directions below to access the portal: 1.Access the email account you provided upon registration to the hospital.2.Look for an invitation email from [facility].3.Open the email and access the invitation link: Accept Invitation to [facility].Fill in the required beard to create your account. Sign into [email or web address] with your username and password that you created in the above steps to stay up to date. You can then view a summary of results, a summary of your visits, and the ability to download your summaries to your computer or send the information securely to a physician. Remember that your healthcare information is confidential, so carefully consider who you will allow to register on the [facility] Patient Portal for access to your information. You can also access the [facility] Patient Portal on the [employer]aiti. Simply click on Health Records under [employer] and then click on the [employer] logo. HOW TO SAFELY DISPOSE OF PRESCRIPTION MEDICATIONS Please use one of the following methods to safely dispose of your unused medications. 1.Use a drug disposal kit: the drug disposal pouch allows you to safely discard your old and unuseddrugs. Ask your nurse to give you one when you are discharged.2.Visit a local take-back location: Many local pharmacies and police departments have programs that collect old and unwanted prescriptiondrugs. Call your local pharmacy or go to http://[employer]/6D7Xa3i to find one close to you.3.Make use of household items: Use cat litter or old coffee grounds to dispose medications if other options arenot available. Mix your drugs with these household products, seal them in an airtight container andthrow it into the garbage. Call [facility]: [phone] to be sure your drugs can be disposed of in this way. Some medicines may require a different approach.4.Never flush your medications down the toilet. IF YOU HAVE BEEN PRESCRIBED AN OPIOIDS FOR PAIN If you have been prescribed an opioid (such as hydrocodone, oxycodone or morphine), it is critical to understand the possible side effects and risks of opioid pain medications. Even when taken as directed, opioids can have several side effects including: Tolerance, meaning you might need to take more of a medication for the same pain relief. Nausea, vomiting and/or constipation. Sleepiness, dizziness, dry mouth, confusion, depression or itching. Physical dependence, meaning you have withdrawal symptoms when a medication is stopped ? this can develop within a few days. KNOW YOUR RESPONSIBILITIES It is important to know exactly how much and how often to take the opioid pain medications you are prescribed. Never take opioids in higher amounts or more often than prescribed. Do not combine opioids with alcohol or other drugs that cause drowsiness, such as benzodiazepines, also known as benzos,including diazepam and alprazolam, muscle relaxants or sleep aids. Never sell or share prescriptionopioids. This is illegal. Store opioids in a secure place and out of reach of others (including children, family, friends and visitors). The last page(s) of this document has been signed and retained as a CHART COPY Signatures Patient Education Materials Back Care Tips Medication Leaflets lidocaine topical, naproxen, cyclobenzaprine, prednisone My discharge plan and instructions have been reviewed and explained to me and INATALIE ANTHONY J understand my current condition and have read and understand these discharge instructions. I have received a written copy of the plan/instructions. If I have questions, I am aware that I should contactmy doctor. 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: Date/Time: Relationship to Patient: Witness Name/Signature: Date/Time: [facility] Progress note No data available for this section [facility] Reason for referral (narrative)* Diagnostic Procedure Only (Urgent) - Closed Specialty Diagnoses / Procedures Referred By Blake mosher Referred To Contact XR IMAGING Diagnoses Acute pain of left knee Procedures XR KNEE GENERAL 4V AP BOTH/PA BOTH/LAT/MERC LEFT KNEE AP-WGT/LAT/MERCKAROLYNT Raymond Joshua APRN.KIARRA [address] [place] [address] Xr Imaging [id number] Referral ID Status Reason Start Date Expiration Date V isits Requested Visits Authorized [id number] Closed Auto-Generate d Referral 06/23/2021 07/23/2022 1 1 [facility] for referral (narrative)No reason for referral information availableWWright-[facility] Work Phone: Reason for visit Narrative* Diagnostic Procedure Only (Urgent) - Closed Specialty Diagnoses / Procedures Referred By Blake mosher Referred To Contact XR IMAGING Diagnoses Acute pain of left knee Procedures XR KNEE GENERAL 4V AP BOTH/PA BOTH/LAT/MERC LEFT KNEE AP-WGT/LAT/MERCKAROLYNT Raymond Joshua APRN.KIARRA [address] [place] [id number] [place] [id number] Referral ID Status Reason Start Date Expiration Date V isits Requested Visits Authorized [id number] Closed Auto-Generate d Referral 06/23/2021 07/23/2022 1 1 [facility] Chief Complaint and Reason for Visit Chief Complaint chk up/spot on hand Reason for Visit HTN (hypertension) Chief Complaint chk up/spot on hand LEG/CELLULITIS Reason for Visit HTN (hypertension) Muscle spasm Right shoulder pain Chief Complaint fu Reason for Visit DVT (deep venous thr ombosis) Gout HTN (hypertension) Chief Complaint Admit Date BLOOD CLOT February 24, 2025 10: 26am Chief Complaint Admit Date BLOOD CLOT February 24, 2025 10: 26am OTHER PAIN March 01, 2025 10 :34am Family History Relationship Condition Age at Onset Recorded Date/T carmela grandfather Kidney disorder Unknown Disorder of liver Unknown Malignant neoplasm of skin Unknown Cerebrovascular accident (CVA) Unknown uncle Chronic obstructive pulmonary disease Unk nown Mental disorder Unknown Advance Directives Advance Directive Response Recorded Date/ Time Living Will No January 14, 2023 9:39am Power of Business Systems Lead No January 14 9:39am Advance Directive Response Recorded Date/ Time Living Will No February 11, 2023 1:10pm Power of Business Systems Lead No February 11 1:10pm Advance Directive Response Recorded Date/ Time Do you have a Healthcare Power of Business Systems Lead? No February 24, 2025 10:32am Advance Directive Response Recorded Date/ Time Do you have a Healthcare Power of Business Systems Lead? No February 24, 2025 10:32am Do you have a Healthcare Power of Business Systems Lead? No March 01, 2025 1:50pm Reason for Referral Specialty Diagnoses / Procedures Referred By Contac t Referred To Contact CT IMAGING Diagnoses Localized enlarged lymph nodes Procedures CT ABD/PEL W IVCON CT ABD & PELVIS W/[place] [address] [place] [address] Ct Imaging Referral ID Status Reason Start Date Expiration Date Visits Requested Visits Authorized [id number] Pending Review Auto-Generat ed Referral 02/18/2023 03/19/2024 1 1 Summary Purpose Additional Source Comments Care Team (unrecognized sect ion and content) Team Status: Active Member Role Status Dates Dr. Vianey Rodriguez MD Family Provider Active Dr. Vianey Rodriguez MD Primary Care Provider Active Team Status: Inactive Member Role Status Dates Dr. Vianey Rodriguez MD Primary Care Provider, Refer ring Provider Active Chalo Nieto CONTINUITY WRITER, CONTINUITY WRITER-C Attending Provider Active Team Status: Inactive Member Role Status Dates Dr. Vianey Rodriguez MD Primary Care Provider Active Chalo Nieto CONTINUITY WRITER, CONTINUITY WRITER-C Attending Provider, Referring Prov ider Active Team Status: Inactive Member Role Status Dates Dr. Vianey Rodriguez MD Primary Care Provider Active Dr. Toy Escalona MD Emergency Provider Active Clay Hoister Relationship Specialty Start Date End Date Colleen Israel MD [address] [place] [address] PCP - General Family Medicine 01/27/23 Clay Hoister Relationship Specialty Start Date End Date Colleen Israel MD [address] [place] [address] PCP - General Family Medicine 01/27/23 Clay Hoister Relationship Specialty Start Date End Date Colleen Israel MD [address] [place] [address] PCP - General Family Medicine 01/27/23 Clay Hoister Relationship Specialty Start Date End Date Colleen Israel MD [address] [place] [address] PCP - General Family Medicine 01/27/23 Clay Hoister Relationship Specialty Start Date End Date Colleen Israel MD [address] [place] [id number] PCP - General Family Medicine 01/27/23 Clay Hoister Relationship Specialty Start Date End Date Colleen Israel MD [address] [place] [id number] PCP - General Family Medicine 01/27/23 Team Status: Inactive Member Role Status Dates Dr. Vianey Rodriguez MD Primary Care P luz maria, Attending Provider, Referring Provider Active Clay Hoister Relationship Specialty Start Date End Date Vianey Rodriguez MD [address] [place], [place] [id number] PCP - General Internal Medicine 06/23/21 01/26/23 Clay Hoister Relationship Specialty Start Date End Date Colleen Israel MD PCP - General Family Medicine 01/27/23 Cori Macias APRN.PHP [employer]ELOPER [address] [place] [id number] Environmental Sciences Professor Family Medicine 06/27/24 Team Status: Active Member Role/Relationship Status Dates No Primary Care Physician Primary Care Provider Active Team Status: Inactive Member Role/Relationship Status Dates No Primary Care Physician Primary Care Provider Active Start: February 24, 2025 End: February 24, 2025 Dr. Toy Escalona MD Emergency Provider Active Start: February 24, 2025 End: February 24, 2025 Team Status: Inactive Member Role/Relationship Status Dates No Primary Care Physician Primary Care Provider Active Start: March 01, 2025 End: March 01, 2025 Dr. Bennie Gibson DO Emergency Provider Active Start: March 01, 2025 End: March 01, 2025 Care Team (unrecognized sect ion and content) Care Team Personnel Name: VIANEY RODRIGUEZ MD Member Role: Primary Care Physician Address: Address: [address] [place] [address]- Care Team Related Persons Name: RICK ESTRADA Address: Home [address] [place] [address] Goals (unrecognized section and content) Goals may be documented in a n alternate section Source Comments (unrecognize d section and content) In the event this informatio n is protected by the Federal Confidentiality of Alcohol and Drug Abuse Patient Records regulations: The Federal rules restrict any use of the information to criminally investigate or prosecute any alcohol or drug abuse patient.[facility] the event this information is protected by the Federal Confidentiality of Alcohol and Drug Abuse Patient Records regulations: The Federal rules restrict any use of the information to criminally investigate or prosecute any alcohol or drug abuse patient.[facility] the event this information is protected by the Federal Confidentiality of Alcohol and Drug Abuse Patient Records regulations: The Federal rules restrict any use of the information to criminally investigate or prosecute any alcohol or drug abuse patient.[facility] the event this information is protected by the Federal Confidentiality of Alcohol and Drug Abuse Patient Records regulations: The Federal rules restrict any use of the information to criminally investigate or prosecute any alcohol or drug abuse patient.[facility] the event this information is protected by the Federal Confidentiality of Alcohol and Drug Abuse Patient Records regulations: The Federal rules restrict any use of the information to criminally investigate or prosecute any alcohol or drug abuse patient.[facility] the event this information is protected by the Federal Confidentiality of Alcohol and Drug Abuse Patient Records regulations: The Federal rules restrict any use of the information to criminally investigate or prosecute any alcohol or drug abuse patient.[facility] the event this information is protected by the Federal Confidentiality of Alcohol and Drug Abuse Patient Records regulations: The Federal rules restrict any use of the information to criminally investigate or prosecute any alcohol or drug abuse patient.[facility] the event this information is protected by the Federal Confidentiality of Alcohol and Drug Abuse Patient Records regulations: The Federal rules restrict any use of the information to criminally investigate or prosecute any alcohol or drug abuse patient.[facility] the event this information is protected by the Federal Confidentiality of Alcohol and Drug Abuse Patient Records regulations: The Federal rules restrict any use of the information to criminally investigate or prosecute any alcohol or drug abuse patient.[facility] the event this information is protected by the Federal Confidentiality of Alcohol and Drug Abuse Patient Records regulations: The Federal rules restrict any use of the information to criminally investigate or prosecute any alcohol or drug abuse patient.[facility] Reason for Visit (unrecogniz ed section and content) Reason Comments Radiology CT Specialty Diagnoses / Procedures Referred By Contac t Referred To Contact CT IMAGING Diagnoses Localized enlarged lymph nodes Procedures CT ABD/PEL W IVCON CT ABD & PELVIS W/[place] [address] [place] [address] [place] [id number] Referral ID Status Reason Start Date Expiration Date V isits Requested Visits Authorized [id number] Closed Auto-Generate d Referral 02/18/2023 03/19/2024 1 1 Reason Comments New Patient Reason Comments Consult Acute DVT Specialty Diagnoses / Procedures Referred By Contac t Referred To Contact Diagnoses Acute deep vein thrombosis (DVT) of proximal vein of right lower extremity (HCC) Procedures CONSULT TO HEMATOLOGY/ONCOLOGY OFFICE/OUTPATIENT [facility] HIGH MDM 60-74 MINUTES Colleen Israel MD [address] [place] [address] Referral ID Status Reason Start Date Expiration Date Visits Requested Visits Authorized [id number] Pending Review PCP Requested Referral 01/27/2023 01/27/2024 1 1 Reason Comments Medication Problem Reason Comments Nurse Triage Call Reason Comments Appointment Confirmation (unrecognized sect ion and content) No Status Records FoundNo Status Records FoundNo Status Records FoundNo Status Records Found INFORMATION SOURCE (unrecogn ized section and content) DATE CREATED AUTHOR 05/04/2023 [facility] ([place]) DATE CREATED AUTHOR AUTHOR'S ORGANIZ ATION 02/17/2025 [facility] DATE CREATED AUTHOR AUTHOR'S ORGANIZ ATION 02/25/2025 [facility] DATE CREATED AUTHOR AUTHOR'S ORGANIZ ATION 02/26/2025 [facility] FOR RECORDS PERTAINING TO PATIENTS WHO ARE OR HAVE BEEN ENROLLED IN A CHEMICAL DEPENDENCY/SUBSTANCEABUSE PROGRAM, SOME INFORMATION MAY BE OMITTED. This clinical summary was aggregated from multiple sources. Caution should be exercised in using it in the provision of clinical care. This summary normalizes information from multiple sources, and as a consequence, information in this document may materially change the coding, format and clinical context of patient data. In addition, data may be omitted in some cases. CLINICAL DECISIONS SHOULD BE BASED ON THE PRIMARY CLINICAL RECORDS. [facility]. provides no warranty or guarantee of the accuracy or completeness of information in this document.
== END 2025-03-01 14:26 | disposition home or self-care (01) ==
PROVIDERS: Emergency Provider Emergency Medicine; Visit Provider Emergency Medicine
DX: I26.99 Other pulmonary embolism without acute cor pulmonale (principal); S76.111A Strain of right quadriceps muscle, fascia and tendon, initial encounter; I10 Essential (primary) hypertension; M72.0 Palmar fascial fibromatosis [Dupuytren]; F17.210 Nicotine dependence, cigarettes, uncomplicated; Z79.01 Long term (current) use of anticoagulants; Z79.899 Other long term (current) drug therapy; Z86.718 Personal history of other venous thrombosis and embolism
CPT/HCPCS: 71275; 80048; 83880; 84484; 85025; 93005; 99284; Q9967; A4216